=== PATIENT | male | born 1950 | race American Indian/Alaskan Native ===

== ENCOUNTER 2017-01-11 17:50 | Inpatient (IN) | payer MEDICARE ==
[2017-01-11 18:37] LABS: Hematocrit 29.4 % (35.5-45.6); Hemoglobin 9.6 gm/dl (11.8-15.2); Mean Corpuscular HGB Conc 33 % (32-34); Mean Corpuscular Hemoglobin 27 pg (28-32); Mean Corpuscular Volume 82 fl (84-94); Platelet Count 345 K/mm3 (140-440); White Blood Count 10.4 K/mm3 (4.5-11.0)
[2017-01-11 18:55] LABS: Calcium 7.9 mg/dL (8.4-10.2); Chloride 103.5 mmol/L (98-107); Potassium 3.7 mmol/L (3.6-5.0)
[2017-01-11 19:51] LABS: Basophils % (Manual) 0 % (0.0-1.8); Blastocytes % (Manual) 0 %
[2017-01-11 19:52] LABS: Poikilocytosis 3+
[2017-01-11 19:53] LABS: Ovalocytes 1+; Schistocytes 2+; Target Cells Few
[2017-01-11 19:59] LABS: Anisocytosis 1+; Hypochromasia 1+
[2017-01-11 20:00] LABS: Diff Status Complete; Large Platelets Few; Platelet Estimate Consistent w Auto
--- NOTE | 2017-01-11 20:03 | XRay Report ---
FINAL REPORT EXAM: XR CHEST ROUTINE 2V HISTORY: Shortness of breath TECHNIQUE: upright single view chest PRIORS: None. FINDINGS: There is focal atelectasis or infiltrate within the left lower lobe. There is mild pulmonary vascular prominence. Cardiac silhouette is prominent size. There is mild pulmonary vascular prominence IMPRESSION: Left lower lobe infiltrate/atelectasis Pulmonary vascular congestion likely reflecting mild CHF Mild cardiomegaly
[2017-01-11] MEDS ORDERED: LASIX IV ONE (21:19)
--- NOTE | 2017-01-11 21:23 | Emergency Department Report ---
ED Shortness of Breath HPI - General Chief Complaint: Dyspnea/Respdistress Stated Complaint: BILATERAL FOOT/LEG SWELLING Time Seen by Provider: 01/11/17 21:13 Source: patient Mode of arrival: Ambulatory Limitations: No Limitations - History of Present Illness Initial Comments: Patient is 66 years old male, history of congestive heart failure, diabetes and hypertension, presented today with increasing shortness of breath and generalized edema for the last few weeks just got worse in the last few days. Patient stated that he cannot walk even for short distances without getting shortness of breath. Patient denied chest pain, fever, nausea or vomiting. MD Complaint: shortness of breath -: Gradual - Related Data Allergies Allergy/AdvReac Type Severity Reaction Status Date / Time No Known Allergies Allergy Unverified 01/11/17 18:03 ED Review of Systems ROS: Stated complaint: BILATERAL FOOT/LEG SWELLING Other details as noted in HPI Comment: All other systems reviewed and negative Constitutional: denies: chills, fever Respiratory: cough, orthopnea, shortness of breath, SOB with exertion, SOB at rest. denies: wheezing Cardiovascular: dyspnea on exertion, orthopnea, edema, paroxysmal nocturnal dyspnea. denies: chest pain, palpitations Gastrointestinal: denies: abdominal pain, nausea, vomiting, diarrhea, constipation, hematemesis, melena, hematochezia Genitourinary: denies: urgency, dysuria, frequency Neurological: weakness (generalized). denies: headache, numbness, paresthesias , confusion, abnormal gait ED Past Medical Hx - Past Medical History Hx Hypertension: Yes Hx CVA: Yes Hx Congestive Heart Failure: Yes Hx Diabetes: Yes - Surgical History Past Surgical History?: No - Social History Smoking Status: Never Smoker Substance Use Type: Alcohol ED Physical Exam - General Limitations: No Limitations General appearance: alert, in distress (moderate respiratory distress) - Head Head exam: Present: atraumatic, normocephalic, normal inspection - Eye Eye exam: Present: normal appearance, PERRL - ENT ENT exam: Present: normal exam, normal orophraynx, mucous membranes moist - Neck Neck exam: Present: normal inspection, full ROM. Absent: tenderness, meningismus, lymphadenopathy, thyromegaly - Respiratory Respiratory exam: Present: respiratory distress, rales, decreased breath sounds. Absent: wheezes, rhonchi, stridor, chest wall tenderness, accessory muscle use, prolonged expiratory - Cardiovascular Cardiovascular Exam: Present: regular rate, normal rhythm, gallop - GI/Abdominal GI/Abdominal exam: Present: soft, normal bowel sounds. Absent: distended, tenderness, guarding, rebound, rigid, mass, bruit, pulsatile mass, hernia - Extremities Exam Extremities exam: Present: normal inspection, full ROM, normal capillary refill , pedal edema (4+). Absent: tenderness, calf tenderness - Back Exam Back exam: Present: normal inspection, full ROM. Absent: tenderness, CVA tenderness (R), CVA tenderness (L), muscle spasm, paraspinal tenderness, vertebral tenderness, rash noted - Neurological Exam Neurological exam: Present: alert, oriented X3, CN II-XII intact, normal gait - Skin Skin exam: Present: warm, intact, normal color ED Course Vital Signs 01/11/17 01/11/17 01/11/17 18:03 21:12 21:15 Temperature 98.4 F Pulse Rate 80 83 Respiratory 20 22 Rate Blood Pressure 142/84 O2 Sat by Pulse 96 89 91 Oximetry 01/11/17 21:31 Temperature Pulse Rate 82 Respiratory 25 H Rate Blood Pressure O2 Sat by Pulse 95 Oximetry ED Medical Decision Making - Lab Data Result diagrams: 01/11/17 18:25 01/11/17 18:25 - EKG Data -: EKG Interpreted by [facility] EKG shows normal: sinus rhythm Rate: normal - EKG Data Interpretation: no acute changes - Radiology Data Radiology results: report reviewed Chest x-ray showed pulmonary edema and possible right lower lobe atelectasis. - Medical Decision Making Discussed with Dr. Kierra Kessler, I presented the patient to her, she accepted to admit the patient to her service. Critical care attestation.: If time is entered above; I have spent that time in minutes in the direct care of this critically ill patient, excluding procedure time. ED Disposition Clinical Impression: Acute exacerbation of congestive heart failure, Volume overload, Shortness of breath Disposition: OP ADMIT IP TO THIS HOSP Is pt being admited?: Yes Condition: Stable Referrals: PRIMARY CARE, [Referring] - 3-5 Days
[2017-01-11] MEDS ORDERED: ZOFRAN IV PRN (22:58)
[2017-01-11] MEDS ORDERED: DULCOLAX PR PRN (22:58)
[2017-01-11] MEDS ORDERED: TYLENOL PO PRN (22:58)
[2017-01-11] MEDS ORDERED: MILK OF MAGNESIA PO PRN (22:58)
[2017-01-11] MEDS ORDERED: D50W (25GM) Vial IV PRN (22:58)
--- NOTE | 2017-01-11 22:58 | History and Physical Report ---
History of Present Illness Date of examination: 01/11/17 History of present illness: 47-year-old man withl history of CHF, diabetes, hypertension, comes emergency room complaining of shortness of breath, increasing lower extremity edema dyspnea on exertion, decreased exercise tolerance for 2 weeks, no PND or orthopnea. States he is compliant with medications and diet Review Of Systems: Constitutional: no weight loss Ears, eyes, nose, mouth and throat: no nasal congestion, no nasal discharge, no sinus pressure, blurry vision, diplopia Neck: No neck pain or rigidity. Cardiovascular: no chest pain, orthopnea, palpitations Respiratory: No cough Gastrointestinal: No abdominal pain, hematochezia Genitourinary : no dysuria, frequency , hematuria Musculoskeletal: no muscle ache Integumentary: no rash, no pruritis Neurological: no parathesias, focal weakness Endocrine: no cold or heat intolerance, no polyuria or polydipsia Hematologic/Lymphatic: no easy bruising, no easy bleeding, no gland swelling Allergic/Immunologic: no urticaria, no angioedema. PAST MEDICAL HISTORY: CHF, diabetes, hypertension, history of CVA PAST SURGICAL HISTORY:none SOCIAL HISTORY: No alcohol and tobacco, no drugs FAMILY HISTORY: Hypertension Medications and Allergies Allergies Allergy/AdvReac Type Severity Reaction Status Date / Time No Known Allergies Allergy Unverified 01/11/17 18:03 Exam - Physical Exam Narrative exam: Gen. appearance: Patient lying in bed, no apparent distress HEENT: Normocephalic, atraumatic, pupils equally round and reactive to light, extraocular movement intact, and no sclericterus,. No JVD or thyromegaly or nodule,neck supple, no carotid bruit ,mucous membranes moist, no exudate or erythema Heart: S1, S2, regular rate and rhythm Lungs: Crackles bilaterally, breathing comfortable Abdomen: Positive bowel sounds, nontender, nondistended, no organomegaly Extremity: + edema, no cyanosis, clubbing Skin: No rash, nodules, warm, dry Neuro: Oriented 3, cranial nerves II-12 intact, speech is fluent, motor and sensory intact - Constitutional Vitals: Temp Pulse Resp BP Pulse Ox 98.4 F 82 25 H 142/84 95 01/11/17 18:03 01/11/17 21:31 01/11/17 21:31 01/11/17 18:03 01/11/17 21:31 Results - Labs CBC & Chem 7: 01/11/17 18:25 01/11/17 18:25 Labs: Abnormal lab results 01/11/17 01/11/17 Range/Units 18:25 18:25 RBC 3.60 L (3.65-5.03) M/mm3 Hgb 9.6 L (11.8-15.2) gm/dl Hct 29.4 L (35.5-45.6) % MCV 82 L (84-94) fl MCH 27 L (28-32) pg RDW 18.0 H (13.2-15.2) % Seg Neuts % (Manual) 77.0 H (40.0-70.0) % Lymphocytes % (Manual) 12.0 L (13.4-35.0) % Monocytes % (Manual) 10.0 H (0.0-7.3) % Seg Neutrophils # Man 8.0 H (1.8-7.7) K/mm3 Monocytes # (Manual) 1.0 H (0.0-0.8) K/mm3 Creatinine 1.6 H (0.8-1.5) mg/dL Glucose 146 H (75-100) mg/dL Calcium 7.9 L (8.4-10.2) mg/dL NT-Pro-B Natriuret Pep 22086 H (0-900) pg/mL Assessment and Plan Assessment Acute onset CHF, probably systolic dysfunction Diabetes Hypertension History of PE, DVT, LV apical thrombus Plan Admit to medicine Diuresed with IV Lasix, Start Beta pradeep, AceI ,aspirin Check cardiac enzymes, consult cardiology Monitor I's and O's, daily weights Check fingersticks and start insulin sliding scale DVT prophylaxis
[2017-01-11 23:56] LABS: Creatine Kinase MB 1.2 ng/mL (0.0-4.0)
[2017-01-12] MEDS: LASIX IV SCH ×2 (06:24→17:04)
[2017-01-12 07:51] LABS: Hematocrit 26.7 % (35.5-45.6); Hemoglobin 9.1 gm/dl (11.8-15.2); Mean Corpuscular HGB Conc 34 % (32-34); Mean Corpuscular Hemoglobin 27 pg (28-32); Mean Corpuscular Volume 80 fl (84-94); Platelet Count 353 K/mm3 (140-440); Red Blood Count 3.32 M/mm3 (3.65-5.03); Red Cell Distribution Width 17.4 % (13.2-15.2); White Blood Count 10.2 K/mm3 (4.5-11.0)
[2017-01-12 07:53] LABS: Creatine Kinase MB 1.4 ng/mL (0.0-4.0)
[2017-01-12 07:54] LABS: Chloride 103.9 mmol/L (98-107); Potassium 3.3 mmol/L (3.6-5.0)
[2017-01-12] MEDS: NOVOLOG SUB-Q SCH ×4 (08:46→21:40)
[2017-01-12 09:46] LABS: Anisocytosis 1+; Basophils % (Manual) 0 % (0.0-1.8); Blastocytes % (Manual) 0 %; Eosinophils % (Manual) 0 % (0.0-4.3)
[2017-01-12 09:48] LABS: Hypochromasia 1+; Poikilocytosis 1+; Schistocytes Few; Target Cells Few
[2017-01-12 09:49] LABS: Diff Status Complete
[2017-01-12] MEDS: ZESTRIL PO SCH (11:02)
[2017-01-12] MEDS: LOPRESSOR PO SCH ×2 (11:02→21:49)
[2017-01-12] MEDS: LOVENOX SUB-Q SCH (11:03)
--- NOTE | 2017-01-12 11:22 | Progress Note ---
<VALDEMAR VIEIRA - Last Filed: 01/26/17 08:14> Assessment and Plan Assessment and plan: Patient is 66 years old male, history of congestive heart failure, diabetes and hypertension, presented today with increasing shortness of breath and generalized edema for the last few weeks just got worse in the last few days. Acute on chronic Congestive heart failure Echocardiogram ordered Continue on IV Diuresis and beta blockers Strict I&O's and daily weights Low-sodium/cardiac diet/fluid restriction Closely monitor electrolytes Cardiology evaluation Diabetes mellitus Accu-Chek before meals and at bedtime Sliding scale insulin/NovoLog ADA carbohydrate consistent diet Acute renal failure Nephrology consulted Repeat BMP Hypokalemia Replaced Closely monitor electrolytes Hypertensive urgency Continue home antihypertensive medications Closely monitor blood pressure Chronic anemia H&H stable for patient at this point; no blood transfusions needed Closely monitor H&H DVT prophylaxis Heparin History Interval history: Patient denies shortness of breath or chest pain. Labs and nursing notes are reviewed. Hospitalist Physical - Constitutional Vitals: Temp Pulse Resp BP Pulse Ox 98.9 F 81 20 146/84 97 01/12/17 10:54 01/12/17 11:02 01/12/17 10:54 01/12/17 11:02 01/12/17 10:54 General appearance: Present: no acute distress - EENT Eyes: Present: PERRL ENT: hearing intact - Respiratory Respiratory effort: normal Respiratory: negative: other (Crackles ) - Cardiovascular Heart rate: 81 Rhythm: regular Heart Sounds: Present: S1 & S2 - Extremities Extremity abnormal: edema, other (bilateral lower extremity) - Abdominal General gastrointestinal: soft, non-tender - Integumentary Integumentary: Present: clear, warm, dry - Psychiatric Psychiatric: appropriate mood/affect - Neurologic Neurologic: moves all extremities - Allied Health Allied health notes reviewed: nursing Results - Labs CBC & Chem 7: 01/12/17 07:11 01/14/17 06:54 Labs: Laboratory Last Values WBC 10.2 K/mm3 (4.5-11.0) 01/12/17 07:11 RBC 3.32 M/mm3 (3.65-5.03) L 01/12/17 07:11 Hgb 9.1 gm/dl (11.8-15.2) L 01/12/17 07:11 Hct 26.7 % (35.5-45.6) L 01/12/17 07:11 MCV 80 fl (84-94) L 01/12/17 07:11 MCH 27 pg (28-32) L 01/12/17 07:11 MCHC 34 % (32-34) 01/12/17 07:11 RDW 17.4 % (13.2-15.2) H 01/12/17 07:11 Plt Count 353 K/mm3 (140-440) 01/12/17 07:11 Add Manual Diff Complete 01/12/17 07:11 Total Counted 100 01/12/17 07:11 Seg Neuts % (Manual) 81.0 % (40.0-70.0) H 01/12/17 07:11 Band Neutrophils % 0 % 01/12/17 07:11 Lymphocytes % (Manual) 14.0 % (13.4-35.0) 01/12/17 07:11 Reactive Lymphs % (Man) 0 % 01/12/17 07:11 Monocytes % (Manual) 5.0 % (0.0-7.3) 01/12/17 07:11 Eosinophils % (Manual) 0 % (0.0-4.3) 01/12/17 07:11 Basophils % (Manual) 0 % (0.0-1.8) 01/12/17 07:11 Metamyelocytes % 0 % 01/12/17 07:11 Myelocytes % 0 % 01/12/17 07:11 Promyelocytes % 0 % 01/12/17 07:11 Blast Cells % 0 % 01/12/17 07:11 Nucleated RBC % Not Reportable 01/12/17 07:11 Seg Neutrophils # Man 8.3 K/mm3 (1.8-7.7) H 01/12/17 07:11 Band Neutrophils # 0.0 K/mm3 01/12/17 07:11 Lymphocytes # (Manual) 1.4 K/mm3 (1.2-5.4) 01/12/17 07:11 Abs React Lymphs (Man) 0.0 K/mm3 01/12/17 07:11 Monocytes # (Manual) 0.5 K/mm3 (0.0-0.8) 01/12/17 07:11 Eosinophils # (Manual) 0.0 K/mm3 (0.0-0.4) 01/12/17 07:11 Basophils # (Manual) 0.0 K/mm3 (0.0-0.1) 01/12/17 07:11 Metamyelocytes # 0.0 K/mm3 01/12/17 07:11 Myelocytes # 0.0 K/mm3 01/12/17 07:11 Promyelocytes # 0.0 K/mm3 01/12/17 07:11 Blast Cells # 0.0 K/mm3 01/12/17 07:11 WBC Morphology Not Reportable 01/12/17 07:11 Hypersegmented Neuts Not Reportable 01/12/17 07:11 Hyposegmented Neuts Not Reportable 01/12/17 07:11 Hypogranular Neuts Not Reportable 01/12/17 07:11 Smudge Cells Not Reportable 01/12/17 07:11 Toxic Granulation Not Reportable 01/12/17 07:11 Toxic Vacuolation Not Reportable 01/12/17 07:11 Dohle Bodies Not Reportable 01/12/17 07:11 Pelger-Huet Anomaly Not Reportable 01/12/17 07:11 Ragini Rods Not Reportable 01/12/17 07:11 Platelet Estimate Not Reportable 01/12/17 07:11 Clumped Platelets Not Reportable 01/12/17 07:11 Plt Clumps, EDTA Not Reportable 01/12/17 07:11 Large Platelets Not Reportable 01/12/17 07:11 Giant Platelets Not Reportable 01/12/17 07:11 Platelet Satelliting Not Reportable 01/12/17 07:11 Plt Morphology Comment Not Reportable 01/12/17 07:11 RBC Morphology Not Reportable 01/12/17 07:11 Dimorphic RBCs Not Reportable 01/12/17 07:11 Polychromasia Not Reportable 01/12/17 07:11 Hypochromasia 1+ 01/12/17 07:11 Poikilocytosis 1+ 01/12/17 07:11 Anisocytosis 1+ 01/12/17 07:11 Microcytosis Not Reportable 01/12/17 07:11 Macrocytosis Not Reportable 01/12/17 07:11 Spherocytes Not Reportable 01/12/17 07:11 Pappenheimer Bodies Not Reportable 01/12/17 07:11 Sickle Cells Not Reportable 01/12/17 07:11 Target Cells Few 01/12/17 07:11 Tear Drop Cells Not Reportable 01/12/17 07:11 Ovalocytes Not Reportable 01/12/17 07:11 Helmet Cells Not Reportable 01/12/17 07:11 [place] Bodies Not Reportable 01/12/17 07:11 [place] Rings Not Reportable 01/12/17 07:11 [place] Cells Not Reportable 01/12/17 07:11 Bite Cells Not Reportable 01/12/17 07:11 Crenated Cell Not Reportable 01/12/17 07:11 Elliptocytes Not Reportable 01/12/17 07:11 Acanthocytes (Spur) Not Reportable 01/12/17 07:11 Rouleaux Not Reportable 01/12/17 07:11 Hemoglobin C Crystals Not Reportable 01/12/17 07:11 Schistocytes Few 01/12/17 07:11 Malaria parasites Not Reportable 01/12/17 07:11 Scott Bodies Not Reportable 01/12/17 07:11 Hem Pathologist Commnt No 01/12/17 07:11 Sodium 140 mmol/L (137-145) 01/12/17 07:10 Potassium 3.3 mmol/L (3.6-5.0) L 01/12/17 07:10 Chloride 103.9 mmol/L (98-107) 01/12/17 07:10 Carbon Dioxide 23 mmol/L (22-30) 01/12/17 07:10 Anion Gap 16 mmol/L 01/12/17 07:10 BUN 15 mg/dL (9-20) 01/12/17 07:10 Creatinine 1.6 mg/dL (0.8-1.5) H 01/12/17 07:10 Estimated GFR 52 ml/min 01/12/17 07:10 BUN/Creatinine Ratio 9 % 01/12/17 07:10 Glucose 153 mg/dL (75-100) H 01/12/17 07:10 POC Glucose 169 (70-105) H 01/12/17 08:30 Calcium 8.0 mg/dL (8.4-10.2) L 01/12/17 07:10 Total Creatine Kinase 138 units/L (55-170) 01/12/17 07:11 CK-MB (CK-2) 1.4 ng/mL (0.0-4.0) 01/12/17 07:11 CK-MB (CK-2) Rel Index 1.0 (0-4) 01/12/17 07:11 Troponin T 0.022 ng/mL (0.00-0.029) 01/12/17 07:11 NT-Pro-B Natriuret Pep 83995 pg/mL (0-900) H 01/11/17 18:25 <RAJWINDER MARTINEZ M - Last Filed: 02/11/17 19:59> Hospitalist Physical - Constitutional Vitals: Temp Pulse Resp BP Pulse Ox 98.9 F 68 18 143/76 94 01/16/17 00:30 01/16/17 09:30 01/16/17 00:30 01/16/17 09:30 01/16/17 08:10 Results - Labs CBC & Chem 7: 01/12/17 07:11 01/14/17 06:54 Labs: Laboratory Last Values WBC 10.2 K/mm3 (4.5-11.0) 01/12/17 07:11 RBC 3.32 M/mm3 (3.65-5.03) L 01/12/17 07:11 Hgb 9.1 gm/dl (11.8-15.2) L 01/12/17 07:11 Hct 26.7 % (35.5-45.6) L 01/12/17 07:11 MCV 80 fl (84-94) L 01/12/17 07:11 MCH 27 pg (28-32) L 01/12/17 07:11 MCHC 34 % (32-34) 01/12/17 07:11 RDW 17.4 % (13.2-15.2) H 01/12/17 07:11 Plt Count 353 K/mm3 (140-440) 01/12/17 07:11 Add Manual Diff Complete 01/12/17 07:11 Total Counted 100 01/12/17 07:11 Seg Neuts % (Manual) 81.0 % (40.0-70.0) H 01/12/17 07:11 Band Neutrophils % 0 % 01/12/17 07:11 Lymphocytes % (Manual) 14.0 % (13.4-35.0) 01/12/17 07:11 Reactive Lymphs % (Man) 0 % 01/12/17 07:11 Monocytes % (Manual) 5.0 % (0.0-7.3) 01/12/17 07:11 Eosinophils % (Manual) 0 % (0.0-4.3) 01/12/17 07:11 Basophils % (Manual) 0 % (0.0-1.8) 01/12/17 07:11 Metamyelocytes % 0 % 01/12/17 07:11 Myelocytes % 0 % 01/12/17 07:11 Promyelocytes % 0 % 01/12/17 07:11 Blast Cells % 0 % 01/12/17 07:11 Nucleated RBC % Not Reportable 01/12/17 07:11 Seg Neutrophils # Man 8.3 K/mm3 (1.8-7.7) H 01/12/17 07:11 Band Neutrophils # 0.0 K/mm3 01/12/17 07:11 Lymphocytes # (Manual) 1.4 K/mm3 (1.2-5.4) 01/12/17 07:11 Abs React Lymphs (Man) 0.0 K/mm3 01/12/17 07:11 Monocytes # (Manual) 0.5 K/mm3 (0.0-0.8) 01/12/17 07:11 Eosinophils # (Manual) 0.0 K/mm3 (0.0-0.4) 01/12/17 07:11 Basophils # (Manual) 0.0 K/mm3 (0.0-0.1) 01/12/17 07:11 Metamyelocytes # 0.0 K/mm3 01/12/17 07:11 Myelocytes # 0.0 K/mm3 01/12/17 07:11 Promyelocytes # 0.0 K/mm3 01/12/17 07:11 Blast Cells # 0.0 K/mm3 01/12/17 07:11 WBC Morphology Not Reportable 01/12/17 07:11 Hypersegmented Neuts Not Reportable 01/12/17 07:11 Hyposegmented Neuts Not Reportable 01/12/17 07:11 Hypogranular Neuts Not Reportable 01/12/17 07:11 Smudge Cells Not Reportable 01/12/17 07:11 Toxic Granulation Not Reportable 01/12/17 07:11 Toxic Vacuolation Not Reportable 01/12/17 07:11 Dohle Bodies Not Reportable 01/12/17 07:11 Pelger-Huet Anomaly Not Reportable 01/12/17 07:11 Ragini Rods Not Reportable 01/12/17 07:11 Platelet Estimate Not Reportable 01/12/17 07:11 Clumped Platelets Not Reportable 01/12/17 07:11 Plt Clumps, EDTA Not Reportable 01/12/17 07:11 Large Platelets Not Reportable 01/12/17 07:11 Giant Platelets Not Reportable 01/12/17 07:11 Platelet Satelliting Not Reportable 01/12/17 07:11 Plt Morphology Comment Not Reportable 01/12/17 07:11 RBC Morphology Not Reportable 01/12/17 07:11 Dimorphic RBCs Not Reportable 01/12/17 07:11 Polychromasia Not Reportable 01/12/17 07:11 Hypochromasia 1+ 01/12/17 07:11 Poikilocytosis 1+ 01/12/17 07:11 Anisocytosis 1+ 01/12/17 07:11 Microcytosis Not Reportable 01/12/17 07:11 Macrocytosis Not Reportable 01/12/17 07:11 Spherocytes Not Reportable 01/12/17 07:11 Pappenheimer Bodies Not Reportable 01/12/17 07:11 Sickle Cells Not Reportable 01/12/17 07:11 Target Cells Few 01/12/17 07:11 Tear Drop Cells Not Reportable 01/12/17 07:11 Ovalocytes Not Reportable 01/12/17 07:11 Helmet Cells Not Reportable 01/12/17 07:11 [place] Bodies Not Reportable 01/12/17 07:11 [place] Rings Not Reportable 01/12/17 07:11 [place] Cells Not Reportable 01/12/17 07:11 Bite Cells Not Reportable 01/12/17 07:11 Crenated Cell Not Reportable 01/12/17 07:11 Elliptocytes Not Reportable 01/12/17 07:11 Acanthocytes (Spur) Not Reportable 01/12/17 07:11 Rouleaux Not Reportable 01/12/17 07:11 Hemoglobin C Crystals Not Reportable 01/12/17 07:11 Schistocytes Few 01/12/17 07:11 Malaria parasites Not Reportable 01/12/17 07:11 Scott Bodies Not Reportable 01/12/17 07:11 Hem Pathologist Commnt No 01/12/17 07:11 Sodium 136 mmol/L (137-145) L 01/14/17 06:54 Potassium 4.1 mmol/L (3.6-5.0) D 01/14/17 06:54 Chloride 101.3 mmol/L (98-107) 01/14/17 06:54 Carbon Dioxide 19 mmol/L (22-30) L 01/14/17 06:54 Anion Gap 20 mmol/L 01/14/17 06:54 BUN 14 mg/dL (9-20) 01/14/17 06:54 Creatinine 1.5 mg/dL (0.8-1.5) 01/14/17 06:54 Estimated GFR 56 ml/min 01/14/17 06:54 BUN/Creatinine Ratio 9 % 01/14/17 06:54 Glucose 100 mg/dL (75-100) 01/14/17 06:54 POC Glucose 190 (70-105) H 01/16/17 17:01 Calcium 8.3 mg/dL (8.4-10.2) L 01/14/17 06:54 Total Creatine Kinase 138 units/L (55-170) 01/12/17 07:11 CK-MB (CK-2) 1.4 ng/mL (0.0-4.0) 01/12/17 07:11 CK-MB (CK-2) Rel Index 1.0 (0-4) 01/12/17 07:11 Troponin T 0.022 ng/mL (0.00-0.029) 01/12/17 07:11 NT-Pro-B Natriuret Pep 16809 pg/mL (0-900) H 01/11/17 18:25 Urine Color Yellow (Yellow) 01/13/17 06:40 Urine Turbidity Clear (Clear) 01/13/17 06:40 Urine pH 6.0 (5.0-7.0) 01/13/17 06:40 Ur Specific Strang 1.009 (1.003-1.030) 01/13/17 06:40 Urine Protein 30 mg/dl mg/dL (Negative) 01/13/17 06:40 Urine Glucose (UA) Neg mg/dL (Negative) 01/13/17 06:40 Urine Ketones Neg mg/dL (Negative) 01/13/17 06:40 Urine Blood Neg (Negative) 01/13/17 06:40 Urine Nitrite Neg (Negative) 01/13/17 06:40 Urine Bilirubin Neg (Negative) 01/13/17 06:40 Urine Urobilinogen < 2.0 mg/dL (<2.0) 01/13/17 06:40 Ur Leukocyte Esterase Neg (Negative) 01/13/17 06:40 Urine WBC (Auto) < 1.0 /HPF (0.0-6.0) 01/13/17 06:40 Urine RBC (Auto) 1.0 /HPF (0.0-6.0) 01/13/17 06:40 U Epithel Cells (Auto) < 1.0 /HPF (0-13.0) 01/13/17 06:40 Urine Creatinine 54.3 mg/dL (0.1-20.0) H 01/13/17 06:40 Protein/Creatinin Ratio 1.25 01/13/17 06:40 Urine Total Protein 68 mg/dL (5-11.8) H 01/13/17 06:40
[2017-01-12] MEDS ORDERED: Fluarix Quad 2017-2018(36 MOS+ IM ONE (12:00)
[2017-01-12] MEDS ORDERED: K-DUR PO ONE (12:27)
--- NOTE | 2017-01-12 14:30 | Consultation ---
History of Present Illness Consult date: 01/12/17 Consult reason: congestive heart failure History of present illness: This is a 66yr old male who is admitted with congestive heart failure. Patient reports worsening shortness of breath and bilateral lower extremity edema over the last few days. He denies chest pain. There was no syncope. An echocardiogram done this admission reports a mildly decreased systolic function , ejection fraction 45%. Medications and Allergies Allergies Allergy/AdvReac Type Severity Reaction Status Date / Time No Known Allergies Allergy Unverified 01/11/17 18:03 Active Meds: Active Medications Acetaminophen (Tylenol) 650 mg PO Q4H PRN PRN Reason: Pain MILD(1-3)/Fever >100.5/LIND Bisacodyl (Dulcolax) 10 mg NE QDAY PRN PRN Reason: Constipation unrelieved by MOM Dextrose (D50w (25gm) Vial) 25 gm IV PRN PRN PRN Reason: Hypoglycemia Enoxaparin Sodium (Lovenox) 40 mg SUB-Q QDAY [facility] Last Admin: 01/12/17 11:03 Dose: 40 mg Furosemide (Lasix) 40 mg IV BID@0600,1800 [facility] Last Admin: 01/12/17 06:24 Dose: 40 mg Insulin Aspart (Novolog) 0 units SUB-Q ACHS [facility] PRN Reason: Protocol Last Admin: 01/12/17 08:46 Dose: 3 units Lisinopril (Zestril) 2.5 mg PO QDAY [facility] Last Admin: 01/12/17 11:02 Dose: 2.5 mg Magnesium Hydroxide (Milk Of Magnesia) 30 ml PO Q4H PRN PRN Reason: Constipation Metoprolol Tartrate (Lopressor) 25 mg PO BID [facility] Last Admin: 01/12/17 11:02 Dose: 25 mg Ondansetron HCl (Zofran) 4 mg IV Q8H PRN PRN Reason: N/V unrelieved by Reglan Physical Examination Vital Signs Temp Pulse Resp BP Pulse Ox 98.4 F 80 20 142/84 96 01/11/17 18:03 01/11/17 18:03 01/11/17 18:03 01/11/17 18:03 01/11/17 18:03 General appearance: no acute distress HEENT: Positive: PERRL Cardiac: Positive: Reg Rate and Rhythm Extremities: Present: edema Results 01/12/17 07:11 01/12/17 07:10 Cardiac Enzymes 01/11/17 01/12/17 Range/Units 23:14 07:11 CK-MB (CK-2) 1.2 1.4 (0.0-4.0) ng/mL CBC 01/11/17 01/12/17 Range/Units 18:25 07:11 WBC 10.4 10.2 (4.5-11.0) K/mm3 RBC 3.60 L 3.32 L (3.65-5.03) M/mm3 Hgb 9.6 L 9.1 L (11.8-15.2) gm/dl Hct 29.4 L 26.7 L (35.5-45.6) % Plt Count 345 353 (140-440) K/mm3 Comprehensive Metabolic Panel 01/11/17 01/12/17 Range/Units 18:25 07:10 Sodium 139 140 (137-145) mmol/L Potassium 3.7 3.3 L (3.6-5.0) mmol/L Chloride 103.5 103.9 (98-107) mmol/L Carbon Dioxide 22 23 (22-30) mmol/L BUN 13 15 (9-20) mg/dL Creatinine 1.6 H 1.6 H (0.8-1.5) mg/dL Glucose 146 H 153 H (75-100) mg/dL Calcium 7.9 L 8.0 L (8.4-10.2) mg/dL Assessment and Plan - Patient Problems (1) Acute exacerbation of congestive heart failure Current Visit: Yes Status: Acute Plan to address problem: with preserved ejection fraction 45-50% on echocardiogram. Continue medical therapy for heart failure. We will get a presantine thallium stress test once heart failure is resolved.
[2017-01-13] MEDS: LASIX IV SCH ×2 (05:49→18:18)
[2017-01-13 07:09] LABS: Bilirubin,Urine NEG (Negative); Blood,Urine NEG (Negative); Ketones,Urine NEG (Negative); Leukocyte Esterase,Urine NEG (Negative); Nitrite,Urine NEG (Negative); Urobilinogen,Urine < 2.0 mg/dL (<2.0); WBC,Urine < 1.0 /HPF (0.0-6.0)
[2017-01-13] MEDS: NOVOLOG SUB-Q SCH ×4 (08:31→22:38)
[2017-01-13 09:02] LABS: Calcium 7.9 mg/dL (8.4-10.2); Chloride 103.2 mmol/L (98-107); Potassium 3.4 mmol/L (3.6-5.0)
[2017-01-13] MEDS: ZESTRIL PO SCH (10:42)
[2017-01-13] MEDS: LOVENOX SUB-Q SCH (10:42)
[2017-01-13] MEDS: LOPRESSOR PO SCH ×2 (10:43→21:35)
--- NOTE | 2017-01-13 14:45 | Progress Note ---
Assessment and Plan - Patient Problems (1) Acute exacerbation of congestive heart failure Current Visit: Yes Status: Acute Plan to address problem: ejection fraction 45-50% on echocardiogram. Continue medical therapy for heart failure with preserved ejection fraction. We will get a presantine thallium stress test once heart failure is resolved. Subjective Date of service: 01/13/17 Interval history: Patient reports he is feeling somewhat better. No cardiac events reported. Objective Vital Signs Temp Pulse Resp BP BP Pulse Ox 01/13/17 11:59 98.3 F 69 18 129/73 92 01/13/17 10:43 71 136/77 01/13/17 10:42 71 136/77 01/13/17 08:23 98.9 F 71 18 136/77 96 01/13/17 04:06 99.2 F 68 18 140/75 96 01/13/17 04:02 69 96 01/13/17 00:08 99.9 F H 77 20 133/79 98 01/12/17 21:24 94 01/12/17 20:27 100.7 F H 79 20 128/73 96 01/12/17 19:45 79 01/12/17 16:00 78 01/12/17 15:43 98.3 F 82 18 143/77 95 01/12/17 15:38 94 - Physical Examination General: No Apparent Distress HEENT: Positive: PERRL Cardiac: Positive: Reg Rate and Rhythm Extremities: Present: edema - Labs and Meds Comprehensive Metabolic Panel 01/13/17 Range/Units 08:30 Sodium 140 (137-145) mmol/L Potassium 3.4 L (3.6-5.0) mmol/L Chloride 103.2 (98-107) mmol/L Carbon Dioxide 23 (22-30) mmol/L BUN 15 (9-20) mg/dL Creatinine 1.6 H (0.8-1.5) mg/dL Glucose 85 (75-100) mg/dL Calcium 7.9 L (8.4-10.2) mg/dL
--- NOTE | 2017-01-13 15:53 | Consultation ---
History of Present Illness - Reason for Consult Consult date: 01/13/17 acute renal failure Requesting physician: VALDEMAR VIEIRA - History of Present Illness 66 years old male with history of diabetes and hypertension, presented today with increasing shortness of breath in association with B/L LE edema x 2 weeks. Patient stated that he cannot walk even for short distances without getting shortness of breath. Patient denied chest pain, fever, nausea or vomiting. No aggravating or relieving factors. Renal consult is obtained after he was noted to have elevated CR of 1.6. Pateint states that he has been following up with a sales operations coordinator before but could not recall his baseline function or contact for his sales operations coordinator. Denies any urinary symptoms. No NSAIDs , Contrast. PAST MEDICAL HISTORY: CHF, diabetes, hypertension, history of CVA PAST SURGICAL HISTORY:none SOCIAL HISTORY: No alcohol and tobacco, no drugs FAMILY HISTORY: Hypertension Medications and Allergies Allergies Allergy/AdvReac Type Severity Reaction Status Date / Time No Known Allergies Allergy Unverified 01/11/17 18:03 Home Medications Medication Instructions Recorded Confirmed Last Taken Type Atorvastatin Calcium [Lipitor] 10 mg PO DAILY 01/13/17 01/13/17 Unknown History Active Meds: Active Medications Acetaminophen (Tylenol) 650 mg PO Q4H PRN PRN Reason: Pain MILD(1-3)/Fever >100.5/LIND Aspirin (Halfprin Ec) 81 mg PO QDAY [facility] Bisacodyl (Dulcolax) 10 mg [place] QDAY PRN PRN Reason: Constipation unrelieved by MOM Dextrose (D50w (25gm) Vial) 25 gm IV PRN PRN PRN Reason: Hypoglycemia Enoxaparin Sodium (Lovenox) 40 mg SUB-Q QDAY [facility] Last Admin: 01/13/17 10:42 Dose: 40 mg Furosemide (Lasix) 40 mg IV BID@0600,1800 [facility] Last Admin: 01/13/17 05:49 Dose: 40 mg Insulin Aspart (Novolog) 0 units SUB-Q ACHS [facility] PRN Reason: Protocol Last Admin: 01/13/17 11:45 Dose: Not Given Lisinopril (Zestril) 2.5 mg PO QDAY [facility] Last Admin: 01/13/17 10:42 Dose: 2.5 mg Magnesium Hydroxide (Milk Of Magnesia) 30 ml PO Q4H PRN PRN Reason: Constipation Metoprolol Tartrate (Lopressor) 25 mg PO BID [facility] Last Admin: 01/13/17 10:43 Dose: 25 mg Ondansetron HCl (Zofran) 4 mg IV Q8H PRN PRN Reason: N/V unrelieved by Reglan Review of Systems Constitutional: weight gain, no weight loss Ears, nose, mouth and throat: no nose pain, no nasal congestion, no nasal discharge Cardiovascular: orthopnea, edema, shortness of breath, no chest pain Respiratory: cough, no excessive sputum, no hemoptysis, no congestion, no wheezing Gastrointestinal: no abdominal pain, no nausea, no vomiting, no diarrhea Genitourinary Male: no dysuria, no hematuria, no flank pain Rectal: no pain, no incontinence, no bleeding Musculoskeletal: no neck stiffness, no neck pain, no shooting arm pain Integumentary: no rash, no pruritis, no redness Neurological: no paralysis, no weakness, no parathesias Psychiatric: no anxiety, no memory loss Endocrine: no cold intolerance, no heat intolerance Hematologic/Lymphatic: no easy bruising, no easy bleeding Exam - Vital Signs Vital signs: Vital Signs Temp Pulse Resp BP Pulse Ox 98.4 F 80 20 142/84 96 01/11/17 18:03 01/11/17 18:03 01/11/17 18:03 01/11/17 18:03 01/11/17 18:03 - General Appearance General appearance: well-developed, well-nourished, appears stated age EENT: PERRL, mucous membranes moist Neck: Present: neck supple, trachea midline. Absent: JVD/HJR, Masses Respiratory: Rales, Decreased Breath Sounds Heart: regular, normal heart rate, S1S2, no murmurs Gastrointestinal: Present: normoactive bowel sounds. Absent: tenderness Integumentary: no rash, warm and dry Neurologic: no focal deficit, alert and oriented x3, gait normal, strength 5/5 Musculoskeletal: Absent: deformities, joint swelling Psychiatric: mood/affect appropriate, cooperative Results - Lab Results 01/12/17 07:11 01/13/17 08:30 Most recent lab results Calcium 7.9 mg/dL (8.4-10.2) L 01/13/17 08:30 Urine Creatinine 54.3 mg/dL (0.1-20.0) H 01/13/17 06:40 Urine Total Protein 68 mg/dL (5-11.8) H 01/13/17 06:40 Assessment and Plan 1. FLACO on CKD vs CKD, baseline CR unavailable. 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 CR has been stable at 1.6 for the last 3 days ? baseline 2. Acute on chronic systolic Congestive heart failure 3. Diabetes mellitus II with diabetic nephropathy 4. Hypokalemia 5. Essential Hyperten 6. Anemia likely of CKD Plan: Obtain urine studies Renal Ultrasound Continue IV diuretics Continue ACEI for now. Will try to obtain records from his sales operations coordinator ? baseline CR/previous work ups Avoid nephrotoxines Thank you for the consult
--- NOTE | 2017-01-13 19:11 | Progress Note ---
<VALDEMAR VIEIRA - Last Filed: 01/26/17 08:12> Assessment and Plan Assessment and plan: Patient is 66 years old male, history of congestive heart failure, diabetes and hypertension, presented today with increasing shortness of breath and generalized edema for the last few weeks just got worse in the last few days. Acute on chronic Congestive heart failure Echocardiogram on 01/12/17 with ejection fraction 45-50% presantine thallium stress test once heart failure is resolved. Continue on IV Diuresis and beta blockers Strict I&O's and daily weights Low-sodium/cardiac diet/fluid restriction Closely monitor electrolytes Cardiology evaluation Diabetes mellitus Accu-Chek before meals and at bedtime Sliding scale insulin/NovoLog ADA carbohydrate consistent diet Acute renal failure Nephrology consulted Repeat BMP Hypokalemia Replaced Closely monitor electrolytes Hypertensive urgency Continue home antihypertensive medications Closely monitor blood pressure Chronic anemia H&H stable for patient at this point; no blood transfusions needed Closely monitor H&H History Interval history: Patient denies chest pain, or shortness of breath. Labs and nursing notes reviewed. Hospitalist Physical - Constitutional Vitals: Temp Pulse Resp BP Pulse Ox 98.0 F 76 18 143/71 100 01/13/17 16:52 01/13/17 16:52 01/13/17 16:52 01/13/17 16:52 01/13/17 16:52 General appearance: Present: no acute distress - EENT Eyes: Present: PERRL ENT: hearing intact - Respiratory Respiratory: bilateral: rales (Crackles ) - Cardiovascular Rhythm: regular Heart Sounds: Present: S1 & S2 - Extremities Extremity abnormal: edema, other (bilateral lower extremities) - Abdominal General gastrointestinal: soft, non-tender - Integumentary Integumentary: Present: clear, warm, dry - Psychiatric Psychiatric: appropriate mood/affect - Neurologic Neurologic: moves all extremities - Allied Health Allied health notes reviewed: nursing Results - Labs CBC & Chem 7: 01/12/17 07:11 01/14/17 06:54 Labs: Laboratory Last Values WBC 10.2 K/mm3 (4.5-11.0) 01/12/17 07:11 RBC 3.32 M/mm3 (3.65-5.03) L 01/12/17 07:11 Hgb 9.1 gm/dl (11.8-15.2) L 01/12/17 07:11 Hct 26.7 % (35.5-45.6) L 01/12/17 07:11 MCV 80 fl (84-94) L 01/12/17 07:11 MCH 27 pg (28-32) L 01/12/17 07:11 MCHC 34 % (32-34) 01/12/17 07:11 RDW 17.4 % (13.2-15.2) H 01/12/17 07:11 Plt Count 353 K/mm3 (140-440) 01/12/17 07:11 Add Manual Diff Complete 01/12/17 07:11 Total Counted 100 01/12/17 07:11 Seg Neuts % (Manual) 81.0 % (40.0-70.0) H 01/12/17 07:11 Band Neutrophils % 0 % 01/12/17 07:11 Lymphocytes % (Manual) 14.0 % (13.4-35.0) 01/12/17 07:11 Reactive Lymphs % (Man) 0 % 01/12/17 07:11 Monocytes % (Manual) 5.0 % (0.0-7.3) 01/12/17 07:11 Eosinophils % (Manual) 0 % (0.0-4.3) 01/12/17 07:11 Basophils % (Manual) 0 % (0.0-1.8) 01/12/17 07:11 Metamyelocytes % 0 % 01/12/17 07:11 Myelocytes % 0 % 01/12/17 07:11 Promyelocytes % 0 % 01/12/17 07:11 Blast Cells % 0 % 01/12/17 07:11 Nucleated RBC % Not Reportable 01/12/17 07:11 Seg Neutrophils # Man 8.3 K/mm3 (1.8-7.7) H 01/12/17 07:11 Band Neutrophils # 0.0 K/mm3 01/12/17 07:11 Lymphocytes # (Manual) 1.4 K/mm3 (1.2-5.4) 01/12/17 07:11 Abs React Lymphs (Man) 0.0 K/mm3 01/12/17 07:11 Monocytes # (Manual) 0.5 K/mm3 (0.0-0.8) 01/12/17 07:11 Eosinophils # (Manual) 0.0 K/mm3 (0.0-0.4) 01/12/17 07:11 Basophils # (Manual) 0.0 K/mm3 (0.0-0.1) 01/12/17 07:11 Metamyelocytes # 0.0 K/mm3 01/12/17 07:11 Myelocytes # 0.0 K/mm3 01/12/17 07:11 Promyelocytes # 0.0 K/mm3 01/12/17 07:11 Blast Cells # 0.0 K/mm3 01/12/17 07:11 WBC Morphology Not Reportable 01/12/17 07:11 Hypersegmented Neuts Not Reportable 01/12/17 07:11 Hyposegmented Neuts Not Reportable 01/12/17 07:11 Hypogranular Neuts Not Reportable 01/12/17 07:11 Smudge Cells Not Reportable 01/12/17 07:11 Toxic Granulation Not Reportable 01/12/17 07:11 Toxic Vacuolation Not Reportable 01/12/17 07:11 Dohle Bodies Not Reportable 01/12/17 07:11 Pelger-Huet Anomaly Not Reportable 01/12/17 07:11 Ragini Rods Not Reportable 01/12/17 07:11 Platelet Estimate Not Reportable 01/12/17 07:11 Clumped Platelets Not Reportable 01/12/17 07:11 Plt Clumps, EDTA Not Reportable 01/12/17 07:11 Large Platelets Not Reportable 01/12/17 07:11 Giant Platelets Not Reportable 01/12/17 07:11 Platelet Satelliting Not Reportable 01/12/17 07:11 Plt Morphology Comment Not Reportable 01/12/17 07:11 RBC Morphology Not Reportable 01/12/17 07:11 Dimorphic RBCs Not Reportable 01/12/17 07:11 Polychromasia Not Reportable 01/12/17 07:11 Hypochromasia 1+ 01/12/17 07:11 Poikilocytosis 1+ 01/12/17 07:11 Anisocytosis 1+ 01/12/17 07:11 Microcytosis Not Reportable 01/12/17 07:11 Macrocytosis Not Reportable 01/12/17 07:11 Spherocytes Not Reportable 01/12/17 07:11 Pappenheimer Bodies Not Reportable 01/12/17 07:11 Sickle Cells Not Reportable 01/12/17 07:11 Target Cells Few 01/12/17 07:11 Tear Drop Cells Not Reportable 01/12/17 07:11 Ovalocytes Not Reportable 01/12/17 07:11 Helmet Cells Not Reportable 01/12/17 07:11 [place] Bodies Not Reportable 01/12/17 07:11 [place] Rings Not Reportable 01/12/17 07:11 Elena Cells Not Reportable 01/12/17 07:11 Bite Cells Not Reportable 01/12/17 07:11 Crenated Cell Not Reportable 01/12/17 07:11 Elliptocytes Not Reportable 01/12/17 07:11 Acanthocytes (Spur) Not Reportable 01/12/17 07:11 Rouleaux Not Reportable 01/12/17 07:11 Hemoglobin C Crystals Not Reportable 01/12/17 07:11 Schistocytes Few 01/12/17 07:11 Malaria parasites Not Reportable 01/12/17 07:11 Scott Bodies Not Reportable 01/12/17 07:11 Hem Pathologist Commnt No 01/12/17 07:11 Sodium 140 mmol/L (137-145) 01/13/17 08:30 Potassium 3.4 mmol/L (3.6-5.0) L 01/13/17 08:30 Chloride 103.2 mmol/L (98-107) 01/13/17 08:30 Carbon Dioxide 23 mmol/L (22-30) 01/13/17 08:30 Anion Gap 17 mmol/L 01/13/17 08:30 BUN 15 mg/dL (9-20) 01/13/17 08:30 Creatinine 1.6 mg/dL (0.8-1.5) H 01/13/17 08:30 Estimated GFR 52 ml/min 01/13/17 08:30 BUN/Creatinine Ratio 9 % 01/13/17 08:30 Glucose 85 mg/dL (75-100) 01/13/17 08:30 POC Glucose 138 (70-105) H 01/13/17 16:55 Calcium 7.9 mg/dL (8.4-10.2) L 01/13/17 08:30 Total Creatine Kinase 138 units/L (55-170) 01/12/17 07:11 CK-MB (CK-2) 1.4 ng/mL (0.0-4.0) 01/12/17 07:11 CK-MB (CK-2) Rel Index 1.0 (0-4) 01/12/17 07:11 Troponin T 0.022 ng/mL (0.00-0.029) 01/12/17 07:11 NT-Pro-B Natriuret Pep 19001 pg/mL (0-900) H 01/11/17 18:25 Urine Color Yellow (Yellow) 01/13/17 06:40 Urine Turbidity Clear (Clear) 01/13/17 06:40 Urine pH 6.0 (5.0-7.0) 01/13/17 06:40 Ur Specific [place] 1.009 (1.003-1.030) 01/13/17 06:40 Urine Protein 30 mg/dl mg/dL (Negative) 01/13/17 06:40 Urine Glucose (UA) Neg mg/dL (Negative) 01/13/17 06:40 Urine Ketones Neg mg/dL (Negative) 01/13/17 06:40 Urine Blood Neg (Negative) 01/13/17 06:40 Urine Nitrite Neg (Negative) 01/13/17 06:40 Urine Bilirubin Neg (Negative) 01/13/17 06:40 Urine Urobilinogen < 2.0 mg/dL (<2.0) 01/13/17 06:40 Ur Leukocyte Esterase Neg (Negative) 01/13/17 06:40 Urine WBC (Auto) < 1.0 /HPF (0.0-6.0) 01/13/17 06:40 Urine RBC (Auto) 1.0 /HPF (0.0-6.0) 01/13/17 06:40 U Epithel Cells (Auto) < 1.0 /HPF (0-13.0) 01/13/17 06:40 Urine Creatinine 54.3 mg/dL (0.1-20.0) H 01/13/17 06:40 Protein/Creatinin Ratio 1.25 01/13/17 06:40 Urine Total Protein 68 mg/dL (5-11.8) H 01/13/17 06:40 <RAJWINDER MARTINEZ M - Last Filed: 02/11/17 19:59> Hospitalist Physical - Constitutional Vitals: Temp Pulse Resp BP Pulse Ox 98.9 F 68 18 143/76 94 01/16/17 00:30 01/16/17 09:30 01/16/17 00:30 01/16/17 09:30 01/16/17 08:10 Results - Labs CBC & Chem 7: 01/12/17 07:11 01/14/17 06:54 Labs: Laboratory Last Values WBC 10.2 K/mm3 (4.5-11.0) 01/12/17 07:11 RBC 3.32 M/mm3 (3.65-5.03) L 01/12/17 07:11 Hgb 9.1 gm/dl (11.8-15.2) L 01/12/17 07:11 Hct 26.7 % (35.5-45.6) L 01/12/17 07:11 MCV 80 fl (84-94) L 01/12/17 07:11 MCH 27 pg (28-32) L 01/12/17 07:11 MCHC 34 % (32-34) 01/12/17 07:11 RDW 17.4 % (13.2-15.2) H 01/12/17 07:11 Plt Count 353 K/mm3 (140-440) 01/12/17 07:11 Add Manual Diff Complete 01/12/17 07:11 Total Counted 100 01/12/17 07:11 Seg Neuts % (Manual) 81.0 % (40.0-70.0) H 01/12/17 07:11 Band Neutrophils % 0 % 01/12/17 07:11 Lymphocytes % (Manual) 14.0 % (13.4-35.0) 01/12/17 07:11 Reactive Lymphs % (Man) 0 % 01/12/17 07:11 Monocytes % (Manual) 5.0 % (0.0-7.3) 01/12/17 07:11 Eosinophils % (Manual) 0 % (0.0-4.3) 01/12/17 07:11 Basophils % (Manual) 0 % (0.0-1.8) 01/12/17 07:11 Metamyelocytes % 0 % 01/12/17 07:11 Myelocytes % 0 % 01/12/17 07:11 Promyelocytes % 0 % 01/12/17 07:11 Blast Cells % 0 % 01/12/17 07:11 Nucleated RBC % Not Reportable 01/12/17 07:11 Seg Neutrophils # Man 8.3 K/mm3 (1.8-7.7) H 01/12/17 07:11 Band Neutrophils # 0.0 K/mm3 01/12/17 07:11 Lymphocytes # (Manual) 1.4 K/mm3 (1.2-5.4) 01/12/17 07:11 Abs React Lymphs (Man) 0.0 K/mm3 01/12/17 07:11 Monocytes # (Manual) 0.5 K/mm3 (0.0-0.8) 01/12/17 07:11 Eosinophils # (Manual) 0.0 K/mm3 (0.0-0.4) 01/12/17 07:11 Basophils # (Manual) 0.0 K/mm3 (0.0-0.1) 01/12/17 07:11 Metamyelocytes # 0.0 K/mm3 01/12/17 07:11 Myelocytes # 0.0 K/mm3 01/12/17 07:11 Promyelocytes # 0.0 K/mm3 01/12/17 07:11 Blast Cells # 0.0 K/mm3 01/12/17 07:11 WBC Morphology Not Reportable 01/12/17 07:11 Hypersegmented Neuts Not Reportable 01/12/17 07:11 Hyposegmented Neuts Not Reportable 01/12/17 07:11 Hypogranular Neuts Not Reportable 01/12/17 07:11 Smudge Cells Not Reportable 01/12/17 07:11 Toxic Granulation Not Reportable 01/12/17 07:11 Toxic Vacuolation Not Reportable 01/12/17 07:11 Dohle Bodies Not Reportable 01/12/17 07:11 Pelger-Huet Anomaly Not Reportable 01/12/17 07:11 Ragini Rods Not Reportable 01/12/17 07:11 Platelet Estimate Not Reportable 01/12/17 07:11 Clumped Platelets Not Reportable 01/12/17 07:11 Plt Clumps, EDTA Not Reportable 01/12/17 07:11 Large Platelets Not Reportable 01/12/17 07:11 Giant Platelets Not Reportable 01/12/17 07:11 Platelet Satelliting Not Reportable 01/12/17 07:11 Plt Morphology Comment Not Reportable 01/12/17 07:11 RBC Morphology Not Reportable 01/12/17 07:11 Dimorphic RBCs Not Reportable 01/12/17 07:11 Polychromasia Not Reportable 01/12/17 07:11 Hypochromasia 1+ 01/12/17 07:11 Poikilocytosis 1+ 01/12/17 07:11 Anisocytosis 1+ 01/12/17 07:11 Microcytosis Not Reportable 01/12/17 07:11 Macrocytosis Not Reportable 01/12/17 07:11 Spherocytes Not Reportable 01/12/17 07:11 Pappenheimer Bodies Not Reportable 01/12/17 07:11 Sickle Cells Not Reportable 01/12/17 07:11 Target Cells Few 01/12/17 07:11 Tear Drop Cells Not Reportable 01/12/17 07:11 Ovalocytes Not Reportable 01/12/17 07:11 Helmet Cells Not Reportable 01/12/17 07:11 [place] Bodies Not Reportable 01/12/17 07:11 [place] Rings Not Reportable 01/12/17 07:11 Elena Cells Not Reportable 01/12/17 07:11 Bite Cells Not Reportable 01/12/17 07:11 Crenated Cell Not Reportable 01/12/17 07:11 Elliptocytes Not Reportable 01/12/17 07:11 Acanthocytes (Spur) Not Reportable 01/12/17 07:11 Rouleaux Not Reportable 01/12/17 07:11 Hemoglobin C Crystals Not Reportable 01/12/17 07:11 Schistocytes Few 01/12/17 07:11 Malaria parasites Not Reportable 01/12/17 07:11 Scott Bodies Not Reportable 01/12/17 07:11 Hem Pathologist Commnt No 01/12/17 07:11 Sodium 136 mmol/L (137-145) L 01/14/17 06:54 Potassium 4.1 mmol/L (3.6-5.0) D 01/14/17 06:54 Chloride 101.3 mmol/L (98-107) 01/14/17 06:54 Carbon Dioxide 19 mmol/L (22-30) L 01/14/17 06:54 Anion Gap 20 mmol/L 01/14/17 06:54 BUN 14 mg/dL (9-20) 01/14/17 06:54 Creatinine 1.5 mg/dL (0.8-1.5) 01/14/17 06:54 Estimated GFR 56 ml/min 01/14/17 06:54 BUN/Creatinine Ratio 9 % 01/14/17 06:54 Glucose 100 mg/dL (75-100) 01/14/17 06:54 POC Glucose 190 (70-105) H 01/16/17 17:01 Calcium 8.3 mg/dL (8.4-10.2) L 01/14/17 06:54 Total Creatine Kinase 138 units/L (55-170) 01/12/17 07:11 CK-MB (CK-2) 1.4 ng/mL (0.0-4.0) 01/12/17 07:11 CK-MB (CK-2) Rel Index 1.0 (0-4) 01/12/17 07:11 Troponin T 0.022 ng/mL (0.00-0.029) 01/12/17 07:11 NT-Pro-B Natriuret Pep 92472 pg/mL (0-900) H 01/11/17 18:25 Urine Color Yellow (Yellow) 01/13/17 06:40 Urine Turbidity Clear (Clear) 01/13/17 06:40 Urine pH 6.0 (5.0-7.0) 01/13/17 06:40 Ur Specific [place] 1.009 (1.003-1.030) 01/13/17 06:40 Urine Protein 30 mg/dl mg/dL (Negative) 01/13/17 06:40 Urine Glucose (UA) Neg mg/dL (Negative) 01/13/17 06:40 Urine Ketones Neg mg/dL (Negative) 01/13/17 06:40 Urine Blood Neg (Negative) 01/13/17 06:40 Urine Nitrite Neg (Negative) 01/13/17 06:40 Urine Bilirubin Neg (Negative) 01/13/17 06:40 Urine Urobilinogen < 2.0 mg/dL (<2.0) 01/13/17 06:40 Ur Leukocyte Esterase Neg (Negative) 01/13/17 06:40 Urine WBC (Auto) < 1.0 /HPF (0.0-6.0) 01/13/17 06:40 Urine RBC (Auto) 1.0 /HPF (0.0-6.0) 01/13/17 06:40 U Epithel Cells (Auto) < 1.0 /HPF (0-13.0) 01/13/17 06:40 Urine Creatinine 54.3 mg/dL (0.1-20.0) H 01/13/17 06:40 Protein/Creatinin Ratio 1.25 01/13/17 06:40 Urine Total Protein 68 mg/dL (5-11.8) H 01/13/17 06:40
[2017-01-13] MEDS ORDERED: K-DUR PO ONE (20:39)
[2017-01-14] MEDS: LASIX IV SCH ×2 (05:25→17:25)
--- NOTE | 2017-01-14 07:38 | Ultrasound Report ---
ULTRASOUND RENAL BILATERAL HISTORY: Elevated creatinine, abnormal lab values. TECHNIQUE: transabdominal ultrasound with color Doppler interrogation. FINDINGS: The right kidney measures 11.1 x 5.5 x 6.0cm. Right renal cortex: 1.3cm. The left kidney measures 9.4 x 4.9 x 5.9cm. Left renal cortex: 1.6cm. The kidneys are normal size, contour and position. There is increased renal parenchymal echotexture bilaterally. Corticomedullary differentiation is preserved. No evidence for cystic disease, mass, hydronephrosis or perinephric fluid. The views of the bladder and the region of the ureters appear normal. IMPRESSION: Normal sized but echogenic kidneys consistent with nonspecific renal parenchymal disease.
[2017-01-14 07:49] LABS: Calcium 8.3 mg/dL (8.4-10.2); Chloride 101.3 mmol/L (98-107); Potassium 4.1 mmol/L (3.6-5.0)
[2017-01-14] MEDS: NOVOLOG SUB-Q SCH ×4 (09:46→22:29)
[2017-01-14] MEDS: LOPRESSOR PO SCH ×2 (09:46→22:28)
[2017-01-14] MEDS: LOVENOX SUB-Q SCH (09:47)
[2017-01-14] MEDS: ZESTRIL PO SCH (09:47)
[2017-01-14] MEDS: HALFPRIN EC PO SCH (09:47)
--- NOTE | 2017-01-14 12:00 | Progress Note ---
Assessment and Plan - Patient Problems (1) Acute exacerbation of congestive heart failure Current Visit: Yes Status: Acute Plan to address problem: ejection fraction 45-50% on echocardiogram. Continue medical therapy for heart failure with preserved ejection fraction. We will get a presantine thallium stress tomorrow morning. Subjective Date of service: 01/14/17 Interval history: Patient has no complaints. Objective Vital Signs Temp Pulse Resp BP Pulse Ox 01/14/17 09:47 81 155/92 01/14/17 09:46 81 155/92 01/14/17 08:00 77 01/13/17 20:06 98.4 F 75 18 149/83 96 01/13/17 19:30 71 01/13/17 16:52 98.0 F 76 18 143/71 100 - Physical Examination General: No Apparent Distress HEENT: Positive: PERRL Cardiac: Positive: Reg Rate and Rhythm Neuro: Positive: Grossly Intact Extremities: Present: edema - Labs and Meds Comprehensive Metabolic Panel 01/14/17 Range/Units 06:54 Sodium 136 L (137-145) mmol/L Potassium 4.1 D (3.6-5.0) mmol/L Chloride 101.3 (98-107) mmol/L Carbon Dioxide 19 L (22-30) mmol/L BUN 14 (9-20) mg/dL Creatinine 1.5 (0.8-1.5) mg/dL Glucose 100 (75-100) mg/dL Calcium 8.3 L (8.4-10.2) mg/dL
--- NOTE | 2017-01-14 16:47 | Progress Note ---
Assessment and Plan 1. FLACO on CKD vs CKD, baseline CR unavailable. 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 CR has been stable at 1.6 for the last 3 days ? baseline 2. Acute on chronic systolic Congestive heart failure 3. Diabetes mellitus II with diabetic nephropathy 4. Hypokalemia 5. Essential Hyperten 6. Anemia likely of CKD Plan: Renal Ultrasound with no hydronephrosis Urine studies with + protein/ no blood Continue IV diuretics Continue ACEI for now. CR has remained stable, likely at his baseline. Supportive care for FLACO/CKD Subjective Date of service: 01/14/17 Interval history: Feels better, less SOB/edema Objective - Exam Narrative Exam: General appearance: well-developed, well-nourished, appears stated age EENT: PERRL, mucous membranes moist Neck: Present: neck supple, trachea midline. Absent: JVD/HJR, Masses Respiratory: Rales, Decreased Breath Sounds Heart: regular, normal heart rate, S1S2, no murmurs Gastrointestinal: Present: normoactive bowel sounds. Absent: tenderness Integumentary: no rash, warm and dry Neurologic: no focal deficit, alert and oriented x3, gait normal, strength 5/5 Musculoskeletal: Absent: deformities, joint swelling Psychiatric: mood/affect appropriate, cooperative - Vital Signs Vital signs: Vital Signs - 12hr 01/14/17 01/14/17 01/14/17 07:50 08:00 09:46 Temperature 97.4 F L Pulse Rate 80 77 81 Respiratory 18 Rate Blood Pressure 155/92 155/92 O2 Sat by Pulse 99 Oximetry 01/14/17 01/14/17 09:47 12:05 Temperature Pulse Rate 81 70 Respiratory 18 Rate Blood Pressure 155/92 152/86 O2 Sat by Pulse 96 Oximetry - Lab 01/12/17 07:11 01/14/17 06:54 Most recent lab results Calcium 8.3 mg/dL (8.4-10.2) L 01/14/17 06:54 Urine Creatinine 54.3 mg/dL (0.1-20.0) H 01/13/17 06:40 Urine Total Protein 68 mg/dL (5-11.8) H 01/13/17 06:40
--- NOTE | 2017-01-14 17:45 | Progress Note ---
Assessment and Plan Assessment and plan: Patient is 66-year-old man with history hypertension, type 2 diabetes mellitus and CHF who presents with shortness of breath and generalized edema. Acute on chronic systolic Congestive heart failure Echocardiogram on 01/12/17 with ejection fraction 45-50% presantine thallium stress test once heart failure is resolved. Continue on IV Diuresis and beta blockers Strict I&O's and daily weights Low-sodium/cardiac diet/fluid restriction Closely monitor electrolytes Cardiology evaluation Diabetes mellitus Accu-Chek before meals and at bedtime Sliding scale insulin/NovoLog ADA carbohydrate consistent diet Acute renal failure Nephrology consulted Repeat BMP Hypokalemia Replaced Closely monitor electrolytes Hypertensive urgency Continue home antihypertensive medications Closely monitor blood pressure Chronic anemia H&H stable for patient at this point; no blood transfusions needed Closely monitor H&H Stress test tomorrow History Interval history: Patient was seen and examined. Follow-up on current diagnosis. Overnight uneventful. Patient denies any chest pain, shortness breath, nausea/vomiting or severe headaches. Imaging, nursing note, chart, labs and old chart reviewed. Discussed with patient. Hospitalist Physical - Physical exam Narrative exam: GEN: WDWN, NAD, AWAKE, ALERT, ORIENTATED 3 HEENT: NCAT, EOMI, PERRL, OP Clear NECK: supple, no adenopathy, no thyromegaly, CVS/HEART: RRR, NORMAL S1S2, NO JVD, pulses present bilaterally CHEST/LUNGS: Bilateral Reduced breath sounds, Symmetrical chest expansion, diminished air entry bilaterally GI/Abdomen: soft, NTND, good bowel sounds, no guarding or rebound /Bladder: no suprapubic tenderness, no CVA or paraspinal tenderness EXT/Skin: 3+ pitting bilateral edema MSK: FROM x 4 Neuro: CN 2-12 grossly intact, no new focal deficits Psych: calm - Constitutional Vitals: Temp Pulse Resp BP Pulse Ox 97.4 F L 70 18 152/86 96 01/14/17 07:50 01/14/17 12:05 01/14/17 12:05 01/14/17 12:05 01/14/17 12:05 General appearance: Present: no acute distress Results - Labs CBC & Chem 7: 01/12/17 07:11 01/14/17 06:54 Labs: Laboratory Last Values WBC 10.2 K/mm3 (4.5-11.0) 01/12/17 07:11 RBC 3.32 M/mm3 (3.65-5.03) L 01/12/17 07:11 Hgb 9.1 gm/dl (11.8-15.2) L 01/12/17 07:11 Hct 26.7 % (35.5-45.6) L 01/12/17 07:11 MCV 80 fl (84-94) L 01/12/17 07:11 MCH 27 pg (28-32) L 01/12/17 07:11 MCHC 34 % (32-34) 01/12/17 07:11 RDW 17.4 % (13.2-15.2) H 01/12/17 07:11 Plt Count 353 K/mm3 (140-440) 01/12/17 07:11 Add Manual Diff Complete 01/12/17 07:11 Total Counted 100 01/12/17 07:11 Seg Neuts % (Manual) 81.0 % (40.0-70.0) H 01/12/17 07:11 Band Neutrophils % 0 % 01/12/17 07:11 Lymphocytes % (Manual) 14.0 % (13.4-35.0) 01/12/17 07:11 Reactive Lymphs % (Man) 0 % 01/12/17 07:11 Monocytes % (Manual) 5.0 % (0.0-7.3) 01/12/17 07:11 Eosinophils % (Manual) 0 % (0.0-4.3) 01/12/17 07:11 Basophils % (Manual) 0 % (0.0-1.8) 01/12/17 07:11 Metamyelocytes % 0 % 01/12/17 07:11 Myelocytes % 0 % 01/12/17 07:11 Promyelocytes % 0 % 01/12/17 07:11 Blast Cells % 0 % 01/12/17 07:11 Nucleated RBC % Not Reportable 01/12/17 07:11 Seg Neutrophils # Man 8.3 K/mm3 (1.8-7.7) H 01/12/17 07:11 Band Neutrophils # 0.0 K/mm3 01/12/17 07:11 Lymphocytes # (Manual) 1.4 K/mm3 (1.2-5.4) 01/12/17 07:11 Abs React Lymphs (Man) 0.0 K/mm3 01/12/17 07:11 Monocytes # (Manual) 0.5 K/mm3 (0.0-0.8) 01/12/17 07:11 Eosinophils # (Manual) 0.0 K/mm3 (0.0-0.4) 01/12/17 07:11 Basophils # (Manual) 0.0 K/mm3 (0.0-0.1) 01/12/17 07:11 Metamyelocytes # 0.0 K/mm3 01/12/17 07:11 Myelocytes # 0.0 K/mm3 01/12/17 07:11 Promyelocytes # 0.0 K/mm3 01/12/17 07:11 Blast Cells # 0.0 K/mm3 01/12/17 07:11 WBC Morphology Not Reportable 01/12/17 07:11 Hypersegmented Neuts Not Reportable 01/12/17 07:11 Hyposegmented Neuts Not Reportable 01/12/17 07:11 Hypogranular Neuts Not Reportable 01/12/17 07:11 Smudge Cells Not Reportable 01/12/17 07:11 Toxic Granulation Not Reportable 01/12/17 07:11 Toxic Vacuolation Not Reportable 01/12/17 07:11 Dohle Bodies Not Reportable 01/12/17 07:11 Pelger-Huet Anomaly Not Reportable 01/12/17 07:11 Ragini Rods Not Reportable 01/12/17 07:11 Platelet Estimate Not Reportable 01/12/17 07:11 Clumped Platelets Not Reportable 01/12/17 07:11 Plt Clumps, EDTA Not Reportable 01/12/17 07:11 Large Platelets Not Reportable 01/12/17 07:11 Giant Platelets Not Reportable 01/12/17 07:11 Platelet Satelliting Not Reportable 01/12/17 07:11 Plt Morphology Comment Not Reportable 01/12/17 07:11 RBC Morphology Not Reportable 01/12/17 07:11 Dimorphic RBCs Not Reportable 01/12/17 07:11 Polychromasia Not Reportable 01/12/17 07:11 Hypochromasia 1+ 01/12/17 07:11 Poikilocytosis 1+ 01/12/17 07:11 Anisocytosis 1+ 01/12/17 07:11 Microcytosis Not Reportable 01/12/17 07:11 Macrocytosis Not Reportable 01/12/17 07:11 Spherocytes Not Reportable 01/12/17 07:11 Pappenheimer Bodies Not Reportable 01/12/17 07:11 Sickle Cells Not Reportable 01/12/17 07:11 Target Cells Few 01/12/17 07:11 Tear Drop Cells Not Reportable 01/12/17 07:11 Ovalocytes Not Reportable 01/12/17 07:11 Helmet Cells Not Reportable 01/12/17 07:11 [place]ule[place] Bodies Not Reportable 01/12/17 07:11 [place] Rings Not Reportable 01/12/17 07:11 [place] Cells Not Reportable 01/12/17 07:11 Bite Cells Not Reportable 01/12/17 07:11 Crenated Cell Not Reportable 01/12/17 07:11 Elliptocytes Not Reportable 01/12/17 07:11 Acanthocytes (Spur) Not Reportable 01/12/17 07:11 Rouleaux Not Reportable 01/12/17 07:11 Hemoglobin C Crystals Not Reportable 01/12/17 07:11 Schistocytes Few 01/12/17 07:11 Malaria parasites Not Reportable 01/12/17 07:11 Scott Bodies Not Reportable 01/12/17 07:11 Hem Pathologist Commnt No 01/12/17 07:11 Sodium 136 mmol/L (137-145) L 01/14/17 06:54 Potassium 4.1 mmol/L (3.6-5.0) D 01/14/17 06:54 Chloride 101.3 mmol/L (98-107) 01/14/17 06:54 Carbon Dioxide 19 mmol/L (22-30) L 01/14/17 06:54 Anion Gap 20 mmol/L 01/14/17 06:54 BUN 14 mg/dL (9-20) 01/14/17 06:54 Creatinine 1.5 mg/dL (0.8-1.5) 01/14/17 06:54 Estimated GFR 56 ml/min 01/14/17 06:54 BUN/Creatinine Ratio 9 % 01/14/17 06:54 Glucose 100 mg/dL (75-100) 01/14/17 06:54 POC Glucose 169 (70-105) H 01/14/17 12:08 Calcium 8.3 mg/dL (8.4-10.2) L 01/14/17 06:54 Total Creatine Kinase 138 units/L (55-170) 01/12/17 07:11 CK-MB (CK-2) 1.4 ng/mL (0.0-4.0) 01/12/17 07:11 CK-MB (CK-2) Rel Index 1.0 (0-4) 01/12/17 07:11 Troponin T 0.022 ng/mL (0.00-0.029) 01/12/17 07:11 NT-Pro-B Natriuret Pep 74060 pg/mL (0-900) H 01/11/17 18:25 Urine Color Yellow (Yellow) 01/13/17 06:40 Urine Turbidity Clear (Clear) 01/13/17 06:40 Urine pH 6.0 (5.0-7.0) 01/13/17 06:40 Ur Specific [place] 1.009 (1.003-1.030) 01/13/17 06:40 Urine Protein 30 mg/dl mg/dL (Negative) 01/13/17 06:40 Urine Glucose (UA) Neg mg/dL (Negative) 01/13/17 06:40 Urine Ketones Neg mg/dL (Negative) 01/13/17 06:40 Urine Blood Neg (Negative) 01/13/17 06:40 Urine Nitrite Neg (Negative) 01/13/17 06:40 Urine Bilirubin Neg (Negative) 01/13/17 06:40 Urine Urobilinogen < 2.0 mg/dL (<2.0) 01/13/17 06:40 Ur Leukocyte Esterase Neg (Negative) 01/13/17 06:40 Urine WBC (Auto) < 1.0 /HPF (0.0-6.0) 01/13/17 06:40 Urine RBC (Auto) 1.0 /HPF (0.0-6.0) 01/13/17 06:40 U Epithel Cells (Auto) < 1.0 /HPF (0-13.0) 01/13/17 06:40 Urine Creatinine 54.3 mg/dL (0.1-20.0) H 01/13/17 06:40 Protein/Creatinin Ratio 1.25 01/13/17 06:40 Urine Total Protein 68 mg/dL (5-11.8) H 01/13/17 06:40
[2017-01-15] MEDS: LASIX IV SCH ×2 (05:32→18:47)
[2017-01-15] MEDS: NOVOLOG SUB-Q SCH ×3 (07:48→16:49)
[2017-01-15] MEDS ORDERED: LEXISCAN IV ONE ×2 (09:45→09:47)
[2017-01-15] MEDS: LOVENOX SUB-Q SCH (12:30)
[2017-01-15] MEDS: LOPRESSOR PO SCH ×2 (12:30→21:08)
[2017-01-15] MEDS: HALFPRIN EC PO SCH (12:30)
[2017-01-15] MEDS: ZESTRIL PO SCH (12:30)
--- NOTE | 2017-01-15 13:20 | Query- Renal Failure ---
Dear Wise Date: 01/15/17 [employer] Manager/CDS:____Rohit Phone#:___[phone] Exercise your independent professional judgment when responding to query. Questions asked do not imply a particular answer is desired or expected. We greatly appreciate your clarification on this issue. Clinical Documentation States: 66 year old male was admitted on 01/11/17 The progress note (Dr. Villanueva 01/14/17) states " Assessment and plan: Patient is 66-year-old man with history hypertension, type 2 diabetes mellitus and CHF who presents with shortness of breath and generalized edema. Acute renal failure Nephrology consulted Repeat BMP " The Nephrology progress note (Dr. Sr 01/14/17) states " Assessment and Plan 1. FLACO on CKD vs CKD, baseline CR unavailable. 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 CR has been stable at 1.6 for the last 3 days ? baseline " Clinical Findings Show: Creatinine: 1.6 BUN/Creatinine Ratio: 9 Please clarify if you mean: Acute Renal Failure with or due to: [ ] Tubular Necrosis [ ] Medullary Necrosis [ x] Vasomotor Nephropathy [ ] Shock Kidney [ ] Tubular Nephrosis [ ] Renal Tubular Stasis [ ] Cortical Necrosis [ ] Acute Renal Failure (unspecified) [ ] Lower Tubular Nephrosis [ ] Other: [ ] Not Applicable Present on Admission: [ x] Yes (Y) [ ] Clinically undeterminable (W) [ ] No (N) Please also document response in your Progress Notes and/or Discharge Summary and indicate if the condition was present on admission. MTDD
--- NOTE | 2017-01-15 16:17 | Progress Note ---
Assessment and Plan 1. FLACO on CKD vs CKD, baseline CR unavailable. 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 CR has been stable at 1.6 for the last 3 days ? baseline 2. Acute on chronic systolic Congestive heart failure 3. Diabetes mellitus II with diabetic nephropathy 4. Hypokalemia 5. Essential Hyperten 6. Anemia likely of CKD Plan: CR stable. Renal Ultrasound with no hydronephrosis Urine studies with + protein/ no blood Continue IV diuretics -change to 40 BID lasix upon discharge Continue ACEI for now. Supportive care for FLACO/CKD D/c planning per primary team Subjective Date of service: 01/16/17 Interval history: Feels better, less SOB/edema Objective - Exam Narrative Exam: General appearance: well-developed, well-nourished, appears stated age EENT: PERRL, mucous membranes moist Neck: Present: neck supple, trachea midline. Absent: JVD/HJR, Masses Respiratory: Rales, Decreased Breath Sounds Heart: regular, normal heart rate, S1S2, no murmurs Gastrointestinal: Present: normoactive bowel sounds. Absent: tenderness Integumentary: no rash, warm and dry Neurologic: no focal deficit, alert and oriented x3, gait normal, strength 5/5 Musculoskeletal: Absent: deformities, joint swelling Psychiatric: mood/affect appropriate, cooperative - Vital Signs Vital signs: Vital Signs - 12hr 01/15/17 01/15/17 01/15/17 05:37 08:27 09:25 Temperature 98.1 F Pulse Rate 77 74 Respiratory 20 Rate Blood Pressure 152/78 173/96 O2 Sat by Pulse 93 99 Oximetry 01/15/17 01/15/17 01/15/17 09:49 09:50 09:51 Temperature Pulse Rate 78 80 84 Respiratory Rate Blood Pressure 173/96 145/77 159/92 O2 Sat by Pulse Oximetry 01/15/17 01/15/17 09:52 09:53 Temperature Pulse Rate 81 83 Respiratory Rate Blood Pressure 169/91 161/89 O2 Sat by Pulse Oximetry - Lab 01/12/17 07:11 01/14/17 06:54 Most recent lab results Calcium 8.3 mg/dL (8.4-10.2) L 01/14/17 06:54 Urine Creatinine 54.3 mg/dL (0.1-20.0) H 01/13/17 06:40 Urine Total Protein 68 mg/dL (5-11.8) H 01/13/17 06:40
--- NOTE | 2017-01-15 17:19 | Progress Note ---
Assessment and Plan - Patient Problems (1) Volume overload Current Visit: Yes Status: Acute Plan to address problem: Cardiac status is stable, continue medical therapy. Stable cardiac status for discharge. Follow-up in our office in one week. Subjective Date of service: 01/15/17 Interval history: Patient underwent an Persantine thallium stress test, normal perfusion, left ventricular ejection fraction 47%. Objective Vital Signs Temp Pulse Resp BP Pulse Ox 01/15/17 09:53 83 161/89 01/15/17 09:52 81 169/91 01/15/17 09:51 84 159/92 01/15/17 09:50 80 145/77 01/15/17 09:49 78 173/96 01/15/17 09:25 74 173/96 01/15/17 08:27 99 01/15/17 05:37 98.1 F 77 20 152/78 93 01/15/17 00:43 98.1 F 66 18 138/80 95 01/14/17 21:30 71 01/14/17 20:42 98.6 F 82 18 158/94 92 01/14/17 20:29 99 - Physical Examination General: No Apparent Distress HEENT: Positive: PERRL Neck: Positive: neck supple, trachea midline. Negative: JVD/HJR, Masses Cardiac: Positive: Reg Rate and Rhythm Lungs: Positive: Decreased Breath Sounds Neuro: Positive: Grossly Intact Abdomen: Positive: Soft Skin: Positive: Clear Extremities: Absent: edema
--- NOTE | 2017-01-15 17:38 | Progress Note ---
Assessment and Plan Assessment and plan: Patient is 66-year-old man with history of hypertension, type 2 diabetes mellitus and CHF who presents with shortness of breath and generalized edema. Acute on chronic systolic Congestive heart failure Echocardiogram on 01/12/17 with ejection fraction 45-50% presantine thallium stress test once heart failure is resolved. Continue on IV Diuresis and beta blockers Strict I&O's and daily weights Low-sodium/cardiac diet/fluid restriction Closely monitor electrolytes Cardiology evaluation Diabetes mellitus Accu-Chek before meals and at bedtime Sliding scale insulin/NovoLog ADA carbohydrate consistent diet Acute renal failure vasomotor nephropathy roni/ckd 3 most likely Nephrology consulted Repeat BMP Hypokalemia Replaced Closely monitor electrolytes Hypertensive urgency Continue home antihypertensive medications Closely monitor blood pressure Chronic anemia H&H stable for patient at this point; no blood transfusions needed Closely monitor H&H per Cardiology, Dr. Rich "(1) Volume overload Current Visit: Yes Status: Acute Plan to address problem: Cardiac status is stable, continue medical therapy. Stable cardiac status for discharge. Follow-up in our office in one week. Subjective Date of service: 01/15/17 Interval history: Patient underwent an Persantine thallium stress test, normal perfusion, left ventricular ejection fraction 47%." -Acute hypoxic respiratory failure, poa: try to wean off O2, d/w nurse Andrez. If he needs O2 will setup tomorrow. History Interval history: Patient was seen and examined. Follow-up on current diagnosis. Overnight uneventful. Patient denies any chest pain, nausea/vomiting or severe headaches. Imaging, nursing note, chart, labs and old chart reviewed. Discussed with patient. Sob is better but still on o2 Hospitalist Physical - Physical exam Narrative exam: GEN: WDWN, NAD, AWAKE, ALERT, ORIENTATED 3 HEENT: NCAT, EOMI, PERRL, OP Clear NECK: supple, no adenopathy, no thyromegaly, CVS/HEART: RRR, NORMAL S1S2, NO JVD, pulses present bilaterally CHEST/LUNGS: Bilateral Reduced breath sounds, Symmetrical chest expansion, diminished air entry bilaterally GI/Abdomen: soft, NTND, good bowel sounds, no guarding or rebound /Bladder: no suprapubic tenderness, no CVA or paraspinal tenderness EXT/Skin: 3+ pitting bilateral edema MSK: FROM x 4 Neuro: CN 2-12 grossly intact, no new focal deficits Psych: calm - Constitutional Vitals: Temp Pulse Resp BP Pulse Ox 98.1 F 83 20 161/89 99 01/15/17 05:37 01/15/17 09:53 01/15/17 05:37 01/15/17 09:53 01/15/17 08:27 General appearance: Present: no acute distress Results - Labs CBC & Chem 7: 01/12/17 07:11 01/14/17 06:54 Labs: Laboratory Last Values WBC 10.2 K/mm3 (4.5-11.0) 01/12/17 07:11 RBC 3.32 M/mm3 (3.65-5.03) L 01/12/17 07:11 Hgb 9.1 gm/dl (11.8-15.2) L 01/12/17 07:11 Hct 26.7 % (35.5-45.6) L 01/12/17 07:11 MCV 80 fl (84-94) L 01/12/17 07:11 MCH 27 pg (28-32) L 01/12/17 07:11 MCHC 34 % (32-34) 01/12/17 07:11 RDW 17.4 % (13.2-15.2) H 01/12/17 07:11 Plt Count 353 K/mm3 (140-440) 01/12/17 07:11 Add Manual Diff Complete 01/12/17 07:11 Total Counted 100 01/12/17 07:11 Seg Neuts % (Manual) 81.0 % (40.0-70.0) H 01/12/17 07:11 Band Neutrophils % 0 % 01/12/17 07:11 Lymphocytes % (Manual) 14.0 % (13.4-35.0) 01/12/17 07:11 Reactive Lymphs % (Man) 0 % 01/12/17 07:11 Monocytes % (Manual) 5.0 % (0.0-7.3) 01/12/17 07:11 Eosinophils % (Manual) 0 % (0.0-4.3) 01/12/17 07:11 Basophils % (Manual) 0 % (0.0-1.8) 01/12/17 07:11 Metamyelocytes % 0 % 01/12/17 07:11 Myelocytes % 0 % 01/12/17 07:11 Promyelocytes % 0 % 01/12/17 07:11 Blast Cells % 0 % 01/12/17 07:11 Nucleated RBC % Not Reportable 01/12/17 07:11 Seg Neutrophils # Man 8.3 K/mm3 (1.8-7.7) H 01/12/17 07:11 Band Neutrophils # 0.0 K/mm3 01/12/17 07:11 Lymphocytes # (Manual) 1.4 K/mm3 (1.2-5.4) 01/12/17 07:11 Abs React Lymphs (Man) 0.0 K/mm3 01/12/17 07:11 Monocytes # (Manual) 0.5 K/mm3 (0.0-0.8) 01/12/17 07:11 Eosinophils # (Manual) 0.0 K/mm3 (0.0-0.4) 01/12/17 07:11 Basophils # (Manual) 0.0 K/mm3 (0.0-0.1) 01/12/17 07:11 Metamyelocytes # 0.0 K/mm3 01/12/17 07:11 Myelocytes # 0.0 K/mm3 01/12/17 07:11 Promyelocytes # 0.0 K/mm3 01/12/17 07:11 Blast Cells # 0.0 K/mm3 01/12/17 07:11 WBC Morphology Not Reportable 01/12/17 07:11 Hypersegmented Neuts Not Reportable 01/12/17 07:11 Hyposegmented Neuts Not Reportable 01/12/17 07:11 Hypogranular Neuts Not Reportable 01/12/17 07:11 Smudge Cells Not Reportable 01/12/17 07:11 Toxic Granulation Not Reportable 01/12/17 07:11 Toxic Vacuolation Not Reportable 01/12/17 07:11 Dohle Bodies Not Reportable 01/12/17 07:11 Pelger-Huet Anomaly Not Reportable 01/12/17 07:11 Ragini Rods Not Reportable 01/12/17 07:11 Platelet Estimate Not Reportable 01/12/17 07:11 Clumped Platelets Not Reportable 01/12/17 07:11 Plt Clumps, EDTA Not Reportable 01/12/17 07:11 Large Platelets Not Reportable 01/12/17 07:11 Giant Platelets Not Reportable 01/12/17 07:11 Platelet Satelliting Not Reportable 01/12/17 07:11 Plt Morphology Comment Not Reportable 01/12/17 07:11 RBC Morphology Not Reportable 01/12/17 07:11 Dimorphic RBCs Not Reportable 01/12/17 07:11 Polychromasia Not Reportable 01/12/17 07:11 Hypochromasia 1+ 01/12/17 07:11 Poikilocytosis 1+ 01/12/17 07:11 Anisocytosis 1+ 01/12/17 07:11 Microcytosis Not Reportable 01/12/17 07:11 Macrocytosis Not Reportable 01/12/17 07:11 Spherocytes Not Reportable 01/12/17 07:11 Pappenheimer Bodies Not Reportable 01/12/17 07:11 Sickle Cells Not Reportable 01/12/17 07:11 Target Cells Few 01/12/17 07:11 Tear Drop Cells Not Reportable 01/12/17 07:11 Ovalocytes Not Reportable 01/12/17 07:11 Helmet Cells Not Reportable 01/12/17 07:11 Archule[place] Bodies Not Reportable 01/12/17 07:11 [place] Rings Not Reportable 01/12/17 07:11 [place] Cells Not Reportable 01/12/17 07:11 Bite Cells Not Reportable 01/12/17 07:11 Crenated Cell Not Reportable 01/12/17 07:11 Elliptocytes Not Reportable 01/12/17 07:11 Acanthocytes (Spur) Not Reportable 01/12/17 07:11 Rouleaux Not Reportable 01/12/17 07:11 Hemoglobin C Crystals Not Reportable 01/12/17 07:11 Schistocytes Few 01/12/17 07:11 Malaria parasites Not Reportable 01/12/17 07:11 Scott Bodies Not Reportable 01/12/17 07:11 Hem Pathologist Commnt No 01/12/17 07:11 Sodium 136 mmol/L (137-145) L 01/14/17 06:54 Potassium 4.1 mmol/L (3.6-5.0) D 01/14/17 06:54 Chloride 101.3 mmol/L (98-107) 01/14/17 06:54 Carbon Dioxide 19 mmol/L (22-30) L 01/14/17 06:54 Anion Gap 20 mmol/L 01/14/17 06:54 BUN 14 mg/dL (9-20) 01/14/17 06:54 Creatinine 1.5 mg/dL (0.8-1.5) 01/14/17 06:54 Estimated GFR 56 ml/min 01/14/17 06:54 BUN/Creatinine Ratio 9 % 01/14/17 06:54 Glucose 100 mg/dL (75-100) 01/14/17 06:54 POC Glucose 154 (70-105) H 01/15/17 12:11 Calcium 8.3 mg/dL (8.4-10.2) L 01/14/17 06:54 Total Creatine Kinase 138 units/L (55-170) 01/12/17 07:11 CK-MB (CK-2) 1.4 ng/mL (0.0-4.0) 01/12/17 07:11 CK-MB (CK-2) Rel Index 1.0 (0-4) 01/12/17 07:11 Troponin T 0.022 ng/mL (0.00-0.029) 01/12/17 07:11 NT-Pro-B Natriuret Pep 98254 pg/mL (0-900) H 01/11/17 18:25 Urine Color Yellow (Yellow) 01/13/17 06:40 Urine Turbidity Clear (Clear) 01/13/17 06:40 Urine pH 6.0 (5.0-7.0) 01/13/17 06:40 Ur Specific [place] 1.009 (1.003-1.030) 01/13/17 06:40 Urine Protein 30 mg/dl mg/dL (Negative) 01/13/17 06:40 Urine Glucose (UA) Neg mg/dL (Negative) 01/13/17 06:40 Urine Ketones Neg mg/dL (Negative) 01/13/17 06:40 Urine Blood Neg (Negative) 01/13/17 06:40 Urine Nitrite Neg (Negative) 01/13/17 06:40 Urine Bilirubin Neg (Negative) 01/13/17 06:40 Urine Urobilinogen < 2.0 mg/dL (<2.0) 01/13/17 06:40 Ur Leukocyte Esterase Neg (Negative) 01/13/17 06:40 Urine WBC (Auto) < 1.0 /HPF (0.0-6.0) 01/13/17 06:40 Urine RBC (Auto) 1.0 /HPF (0.0-6.0) 01/13/17 06:40 U Epithel Cells (Auto) < 1.0 /HPF (0-13.0) 01/13/17 06:40 Urine Creatinine 54.3 mg/dL (0.1-20.0) H 01/13/17 06:40 Protein/Creatinin Ratio 1.25 01/13/17 06:40 Urine Total Protein 68 mg/dL (5-11.8) H 01/13/17 06:40
--- NOTE | 2017-01-15 22:21 | Treadmill Report ---
THALLIUM STRESS TEST LEFT VENTRICLE: Left ventricle appears mildly dilated. Perfusion study demonstrates homogeneous uptake of the tracer in all segments, no significant perfusion defects identified. Gated analysis demonstrates mild left ventricular systolic dysfunction, ejection fraction calculated at 47%. CONCLUSION: Evidence of mild dilated cardiomyopathy. Normal perfusion imaging suggests a mild nonischemic cardiomyopathy. Clinical correlation is recommended. JOB# [id number] CA/NTS
[2017-01-16] MEDS: NOVOLOG SUB-Q SCH ×4 (00:14→16:58)
[2017-01-16] MEDS: LASIX IV SCH (05:17)
[2017-01-16] MEDS: ZESTRIL PO SCH (09:29)
[2017-01-16] MEDS: HALFPRIN EC PO SCH (09:30)
[2017-01-16] MEDS: LOPRESSOR PO SCH (09:30)
[2017-01-16] MEDS: LOVENOX SUB-Q SCH (09:30)
[2017-01-16 09:31] VITALS: BP 143/76
--- NOTE | 2017-01-16 11:14 | Progress Note ---
Assessment and Plan - Patient Problems (1) Acute exacerbation of congestive heart failure Current Visit: Yes Status: Acute Plan to address problem: ejection fraction 45-50% on echocardiogram. normal persantine thallium stress test Continue medical therapy for heart failure with preserved ejection fraction. Subjective Date of service: 01/16/17 Interval history: Patient has no complaints. Patient reports his breathing is better. Objective Vital Signs Temp Pulse Resp BP BP Pulse Ox 01/16/17 09:30 68 143/76 01/16/17 09:29 68 143/76 01/16/17 08:10 94 01/16/17 05:31 73 153/83 94 01/16/17 00:30 98.9 F 68 18 148/74 100 01/16/17 00:29 93 H 128/84 96 01/16/17 00:26 70 148/74 100 01/16/17 00:18 80 01/15/17 22:05 95 01/15/17 22:00 18 01/15/17 20:00 98.2 F 77 20 168/94 95 01/15/17 12:06 98.0 F 77 18 150/78 98 - Physical Examination General: No Apparent Distress HEENT: Positive: PERRL Cardiac: Positive: Reg Rate and Rhythm Neuro: Positive: Grossly Intact Abdomen: Positive: Soft Skin: Positive: Clear Extremities: Absent: edema
--- NOTE | 2017-01-16 13:02 | Progress Note ---
Assessment and Plan 1. FLACO on CKD vs CKD, baseline CR unavailable. 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 CR has been stable at 1.6 for the last 3 days ? baseline 2. Acute on chronic systolic Congestive heart failure 3. Diabetes mellitus II with diabetic nephropathy 4. Hypokalemia 5. Essential Hypertension 6. Anemia likely of CKD Plan: CR stable. Renal Ultrasound with no hydronephrosis Urine studies with + protein/ no blood Continue IV diuretics -change to 40 BID Lasix upon discharge Continue ACEI for now. Supportive care for FLACO/CKD Subjective Date of service: 01/16/17 Interval history: Less SOB/edema Objective - Exam Narrative Exam: General appearance: well-developed, well-nourished, appears stated age EENT: PERRL, mucous membranes moist Neck: Present: neck supple, trachea midline. Absent: JVD/HJR, Masses Respiratory: Rales, Decreased Breath Sounds Heart: regular, normal heart rate, S1S2, no murmurs Gastrointestinal: Present: normoactive bowel sounds. Absent: tenderness Integumentary: no rash, warm and dry Neurologic: no focal deficit, alert and oriented x3, gait normal, strength 5/5 Musculoskeletal: Absent: deformities, joint swelling Psychiatric: mood/affect appropriate, cooperative - Vital Signs Vital signs: Vital Signs - 12hr 01/16/17 01/16/17 01/16/17 05:31 08:10 09:29 Pulse Rate 73 68 Blood Pressure 153/83 143/76 O2 Sat by Pulse 94 94 Oximetry 01/16/17 09:30 Pulse Rate 68 Blood Pressure 143/76 O2 Sat by Pulse Oximetry - Lab 01/12/17 07:11 01/14/17 06:54 Most recent lab results Calcium 8.3 mg/dL (8.4-10.2) L 01/14/17 06:54 Urine Creatinine 54.3 mg/dL (0.1-20.0) H 01/13/17 06:40 Urine Total Protein 68 mg/dL (5-11.8) H 01/13/17 06:40
--- NOTE | 2017-01-16 15:18 | Progress Note ---
Assessment and Plan Assessment and plan: Patient is 66-year-old man with history of hypertension, type 2 diabetes mellitus and CHF who presents with shortness of breath and generalized edema. Acute on chronic systolic Congestive heart failure Echocardiogram on 01/12/17 with ejection fraction 45-50% presantine thallium stress test once heart failure is resolved. Continue on IV Diuresis and beta blockers Strict I&O's and daily weights Low-sodium/cardiac diet/fluid restriction Closely monitor electrolytes Cardiology evaluation Diabetes mellitus Accu-Chek before meals and at bedtime Sliding scale insulin/NovoLog ADA carbohydrate consistent diet Acute renal failure vasomotor nephropathy roni/ckd 3 most likely Nephrology consulted Repeat BMP Hypokalemia Replaced Closely monitor electrolytes Hypertensive urgency Continue home antihypertensive medications Closely monitor blood pressure Chronic anemia H&H stable for patient at this point; no blood transfusions needed Closely monitor H&H per Cardiology, Dr. Rich "(1) Volume overload Current Visit: Yes Status: Acute Plan to address problem: Cardiac status is stable, continue medical therapy. Stable cardiac status for discharge. Follow-up in our office in one week. Subjective Date of service: 01/15/17 Interval history: Patient underwent an Persantine thallium stress test, normal perfusion, left ventricular ejection fraction 47%." -Acute hypoxic respiratory failure, poa: try to wean off O2, d/w nurse Andrez. History Interval history: Patient was seen and examined. Follow-up on current diagnosis. Overnight uneventful. Patient denies any chest pain, nausea/vomiting or severe headaches. Imaging, nursing note, chart, labs and old chart reviewed. Discussed with patient. Sob is better but still on o2 Hospitalist Physical - Physical exam Narrative exam: GEN: WDWN, NAD, AWAKE, ALERT, ORIENTATED 3 HEENT: NCAT, EOMI, PERRL, OP Clear NECK: supple, no adenopathy, no thyromegaly, CVS/HEART: RRR, NORMAL S1S2, NO JVD, pulses present bilaterally CHEST/LUNGS: Bilateral Reduced breath sounds, Symmetrical chest expansion, diminished air entry bilaterally GI/Abdomen: soft, NTND, good bowel sounds, no guarding or rebound /Bladder: no suprapubic tenderness, no CVA or paraspinal tenderness EXT/Skin: 3+ pitting bilateral edema MSK: FROM x 4 Neuro: CN 2-12 grossly intact, no new focal deficits Psych: calm - Constitutional Vitals: Temp Pulse Resp BP Pulse Ox 98.9 F 68 18 143/76 94 01/16/17 00:30 01/16/17 09:30 01/16/17 00:30 01/16/17 09:30 01/16/17 08:10 General appearance: Present: no acute distress Results - Labs CBC & Chem 7: 01/12/17 07:11 01/14/17 06:54 Labs: Laboratory Last Values WBC 10.2 K/mm3 (4.5-11.0) 01/12/17 07:11 RBC 3.32 M/mm3 (3.65-5.03) L 01/12/17 07:11 Hgb 9.1 gm/dl (11.8-15.2) L 01/12/17 07:11 Hct 26.7 % (35.5-45.6) L 01/12/17 07:11 MCV 80 fl (84-94) L 01/12/17 07:11 MCH 27 pg (28-32) L 01/12/17 07:11 MCHC 34 % (32-34) 01/12/17 07:11 RDW 17.4 % (13.2-15.2) H 01/12/17 07:11 Plt Count 353 K/mm3 (140-440) 01/12/17 07:11 Add Manual Diff Complete 01/12/17 07:11 Total Counted 100 01/12/17 07:11 Seg Neuts % (Manual) 81.0 % (40.0-70.0) H 01/12/17 07:11 Band Neutrophils % 0 % 01/12/17 07:11 Lymphocytes % (Manual) 14.0 % (13.4-35.0) 01/12/17 07:11 Reactive Lymphs % (Man) 0 % 01/12/17 07:11 Monocytes % (Manual) 5.0 % (0.0-7.3) 01/12/17 07:11 Eosinophils % (Manual) 0 % (0.0-4.3) 01/12/17 07:11 Basophils % (Manual) 0 % (0.0-1.8) 01/12/17 07:11 Metamyelocytes % 0 % 01/12/17 07:11 Myelocytes % 0 % 01/12/17 07:11 Promyelocytes % 0 % 01/12/17 07:11 Blast Cells % 0 % 01/12/17 07:11 Nucleated RBC % Not Reportable 01/12/17 07:11 Seg Neutrophils # Man 8.3 K/mm3 (1.8-7.7) H 01/12/17 07:11 Band Neutrophils # 0.0 K/mm3 01/12/17 07:11 Lymphocytes # (Manual) 1.4 K/mm3 (1.2-5.4) 01/12/17 07:11 Abs React Lymphs (Man) 0.0 K/mm3 01/12/17 07:11 Monocytes # (Manual) 0.5 K/mm3 (0.0-0.8) 01/12/17 07:11 Eosinophils # (Manual) 0.0 K/mm3 (0.0-0.4) 01/12/17 07:11 Basophils # (Manual) 0.0 K/mm3 (0.0-0.1) 01/12/17 07:11 Metamyelocytes # 0.0 K/mm3 01/12/17 07:11 Myelocytes # 0.0 K/mm3 01/12/17 07:11 Promyelocytes # 0.0 K/mm3 01/12/17 07:11 Blast Cells # 0.0 K/mm3 01/12/17 07:11 WBC Morphology Not Reportable 01/12/17 07:11 Hypersegmented Neuts Not Reportable 01/12/17 07:11 Hyposegmented Neuts Not Reportable 01/12/17 07:11 Hypogranular Neuts Not Reportable 01/12/17 07:11 Smudge Cells Not Reportable 01/12/17 07:11 Toxic Granulation Not Reportable 01/12/17 07:11 Toxic Vacuolation Not Reportable 01/12/17 07:11 Dohle Bodies Not Reportable 01/12/17 07:11 Pelger-Huet Anomaly Not Reportable 01/12/17 07:11 Ragini Rods Not Reportable 01/12/17 07:11 Platelet Estimate Not Reportable 01/12/17 07:11 Clumped Platelets Not Reportable 01/12/17 07:11 Plt Clumps, EDTA Not Reportable 01/12/17 07:11 Large Platelets Not Reportable 01/12/17 07:11 Giant Platelets Not Reportable 01/12/17 07:11 Platelet Satelliting Not Reportable 01/12/17 07:11 Plt Morphology Comment Not Reportable 01/12/17 07:11 RBC Morphology Not Reportable 01/12/17 07:11 Dimorphic RBCs Not Reportable 01/12/17 07:11 Polychromasia Not Reportable 01/12/17 07:11 Hypochromasia 1+ 01/12/17 07:11 Poikilocytosis 1+ 01/12/17 07:11 Anisocytosis 1+ 01/12/17 07:11 Microcytosis Not Reportable 01/12/17 07:11 Macrocytosis Not Reportable 01/12/17 07:11 Spherocytes Not Reportable 01/12/17 07:11 Pappenheimer Bodies Not Reportable 01/12/17 07:11 Sickle Cells Not Reportable 01/12/17 07:11 Target Cells Few 01/12/17 07:11 Tear Drop Cells Not Reportable 01/12/17 07:11 Ovalocytes Not Reportable 01/12/17 07:11 Helmet Cells Not Reportable 01/12/17 07:11 Archuleta-Elsberry Bodies Not Reportable 01/12/17 07:11 [place] Rings Not Reportable 01/12/17 07:11 Elena Cells Not Reportable 01/12/17 07:11 Bite Cells Not Reportable 01/12/17 07:11 Crenated Cell Not Reportable 01/12/17 07:11 Elliptocytes Not Reportable 01/12/17 07:11 Acanthocytes (Spur) Not Reportable 01/12/17 07:11 Rouleaux Not Reportable 01/12/17 07:11 Hemoglobin C Crystals Not Reportable 01/12/17 07:11 Schistocytes Few 01/12/17 07:11 Malaria parasites Not Reportable 01/12/17 07:11 Scott Bodies Not Reportable 01/12/17 07:11 Hem Pathologist Commnt No 01/12/17 07:11 Sodium 136 mmol/L (137-145) L 01/14/17 06:54 Potassium 4.1 mmol/L (3.6-5.0) D 01/14/17 06:54 Chloride 101.3 mmol/L (98-107) 01/14/17 06:54 Carbon Dioxide 19 mmol/L (22-30) L 01/14/17 06:54 Anion Gap 20 mmol/L 01/14/17 06:54 BUN 14 mg/dL (9-20) 01/14/17 06:54 Creatinine 1.5 mg/dL (0.8-1.5) 01/14/17 06:54 Estimated GFR 56 ml/min 01/14/17 06:54 BUN/Creatinine Ratio 9 % 01/14/17 06:54 Glucose 100 mg/dL (75-100) 01/14/17 06:54 POC Glucose 122 (70-105) H 01/16/17 08:56 Calcium 8.3 mg/dL (8.4-10.2) L 01/14/17 06:54 Total Creatine Kinase 138 units/L (55-170) 01/12/17 07:11 CK-MB (CK-2) 1.4 ng/mL (0.0-4.0) 01/12/17 07:11 CK-MB (CK-2) Rel Index 1.0 (0-4) 01/12/17 07:11 Troponin T 0.022 ng/mL (0.00-0.029) 01/12/17 07:11 NT-Pro-B Natriuret Pep 83301 pg/mL (0-900) H 01/11/17 18:25 Urine Color Yellow (Yellow) 01/13/17 06:40 Urine Turbidity Clear (Clear) 01/13/17 06:40 Urine pH 6.0 (5.0-7.0) 01/13/17 06:40 Ur Specific [place] 1.009 (1.003-1.030) 01/13/17 06:40 Urine Protein 30 mg/dl mg/dL (Negative) 01/13/17 06:40 Urine Glucose (UA) Neg mg/dL (Negative) 01/13/17 06:40 Urine Ketones Neg mg/dL (Negative) 01/13/17 06:40 Urine Blood Neg (Negative) 01/13/17 06:40 Urine Nitrite Neg (Negative) 01/13/17 06:40 Urine Bilirubin Neg (Negative) 01/13/17 06:40 Urine Urobilinogen < 2.0 mg/dL (<2.0) 01/13/17 06:40 Ur Leukocyte Esterase Neg (Negative) 01/13/17 06:40 Urine WBC (Auto) < 1.0 /HPF (0.0-6.0) 01/13/17 06:40 Urine RBC (Auto) 1.0 /HPF (0.0-6.0) 01/13/17 06:40 U Epithel Cells (Auto) < 1.0 /HPF (0-13.0) 01/13/17 06:40 Urine Creatinine 54.3 mg/dL (0.1-20.0) H 01/13/17 06:40 Protein/Creatinin Ratio 1.25 01/13/17 06:40 Urine Total Protein 68 mg/dL (5-11.8) H 01/13/17 06:40
--- NOTE | 2017-01-16 15:20 | Discharge Summary ---
Providers - Providers Date of Admission: 01/11/17 22:58 Date of discharge: 01/16/17 Attending physician: KOSTA MAS 01/12/17 14:11 Consult to Physician [CONS] Routine Consulting Provider: VENESSA LAROSE Reason For Exam: ARF Place consult to:: yes Notified:: yes Primary care physician: JACOBY MARISCAL Hospitalization Condition: Stable Hospital course: Patient is 66-year-old man with history of hypertension, type 2 diabetes mellitus and CHF who presents with shortness of breath and generalized edema. Acute on chronic systolic Congestive heart failure Echocardiogram on 01/12/17 with ejection fraction 45-50% presantine thallium stress test once heart failure is resolved. Continue on IV Diuresis and beta blockers Strict I&O's and daily weights Low-sodium/cardiac diet/fluid restriction Closely monitor electrolytes Cardiology evaluation Diabetes mellitus Accu-Chek before meals and at bedtime Sliding scale insulin/NovoLog ADA carbohydrate consistent diet Acute renal failure vasomotor nephropathy roni/ckd 3 most likely Nephrology consulted Repeat BMP Hypokalemia Replaced Closely monitor electrolytes Hypertensive urgency Continue home antihypertensive medications Closely monitor blood pressure Chronic anemia H&H stable for patient at this point; no blood transfusions needed Closely monitor H&H per Cardiology, Dr. Rich "(1) Volume overload Current Visit: Yes Status: Acute Plan to address problem: Cardiac status is stable, continue medical therapy. Stable cardiac status for discharge. Follow-up in our office in one week. Subjective Date of service: 01/15/17 Interval history: Patient underwent an Persantine thallium stress test, normal perfusion, left ventricular ejection fraction 47%." -Acute hypoxic respiratory failure, poa: try to wean off O2, d/w nurse Andrez. Disposition: DC-01 TO HOME OR SELFCARE Time spent for discharge: 36 minutes Core Measure Documentation - Palliative Care Palliative Care/ Comfort Measures: Not Applicable - Core Measures Any of the following diagnoses?: heart failure - VTE Discharge Requirements Deep Vein Thrombosis/Pulmonary Embolism Present on Admission: No Has pt received <5 days of overlap therapy or INR<2.0: No Anticoagulant overlap therapy prescribed at discharge: No Contraindication No Overlap Therapy order at DC: Not Indicated - Heart Failure Discharge Requirements LAKEISHA/ARB for LVSD if EF <40%: Yes Beta pradeep at discharge: Yes Exam - Physical Exam Narrative exam: GEN: WDWN, NAD, AWAKE, ALERT, ORIENTATED 3 HEENT: NCAT, EOMI, PERRL, OP Clear NECK: supple, no adenopathy, no thyromegaly, CVS/HEART: RRR, NORMAL S1S2, NO JVD, pulses present bilaterally CHEST/LUNGS: Bilateral Reduced breath sounds, Symmetrical chest expansion, diminished air entry bilaterally GI/Abdomen: soft, NTND, good bowel sounds, no guarding or rebound /Bladder: no suprapubic tenderness, no CVA or paraspinal tenderness EXT/Skin: 3+ pitting bilateral edema MSK: FROM x 4 Neuro: CN 2-12 grossly intact, no new focal deficits Psych: calm - Constitutional Vitals: Temp Pulse Resp BP Pulse Ox 98.9 F 68 18 143/76 94 01/16/17 00:30 01/16/17 09:30 01/16/17 00:30 01/16/17 09:30 01/16/17 08:10 Plan Activity: other (no strenous activity until cleared by cardiology) Diet: low salt Follow up with: PRIMARY CARE, [Referring] - 3-5 Days Prescriptions: Furosemide [Lasix TAB] 40 mg PO BID #60 tablet Lisinopril [Zestril TAB] 2.5 mg PO QDAY #30 tablet Metoprolol [Lopressor TAB] 25 mg PO BID #60 tablet
== END 2017-01-16 18:10 | disposition home or self-care (01) | DRG 682 ==
LOC: ED 17:50 → 4A 22:58
PROVIDERS: ADMIT Internal Medicine; ATTEND Internal Medicine
PROC: 3E0234Z Introduction of Serum, Toxoid and Vaccine into Muscle, Percutaneous Approach (ICD-10-PCS; principal; 2017-01-12)
DX: N17.0 Acute kidney failure with tubular necrosis (principal); I50.23 Acute on chronic systolic (congestive) heart failure; J96.01 Acute respiratory failure with hypoxia; I13.0 Hypertensive heart and chronic kidney disease with heart failure and stage 1 through stage 4 chronic kidney disease, or unspecified chronic kidney disease; E87.6 Hypokalemia; D64.9 Anemia, unspecified; I27.20 Pulmonary hypertension, unspecified; N18.9 Chronic kidney disease, unspecified; E11.22 Type 2 diabetes mellitus with diabetic chronic kidney disease; E11.21 Type 2 diabetes mellitus with diabetic nephropathy; I16.0 Hypertensive urgency; Z23 Encounter for immunization; Z86.73 Personal history of transient ischemic attack (TIA), and cerebral infarction without residual deficits; Z82.49 Family history of ischemic heart disease and other diseases of the circulatory system; Z86.711 Personal history of pulmonary embolism; Z86.718 Personal history of other venous thrombosis and embolism
CPT/HCPCS: 36415; 71020; 76770; 78452; 80048; 81001; 82550; 82553; 82570; 82962; 83880; 84156; 84484; 85007; 85025; 90471; 90686; 93005; 93010; 93017; 93306; 94760; 96374; 96375; 99285; A9502; G0008; J1650; J1815; J1940; J2785

== ENCOUNTER 2017-04-22 18:44 | Inpatient (IN) | payer MEDICARE ==
[2017-04-22 19:42] LABS: Basophils # (Auto) 0.1 K/mm3 (0.0-0.1); Basophils % (Auto) 1.1 % (0.0-1.8); Eosinophils # (Auto) 0.2 K/mm3 (0.0-0.4); Eosinophils % (Auto) 3.4 % (0.0-4.3); Hematocrit 27.4 % (35.5-45.6); Hemoglobin 9.2 gm/dl (11.8-15.2); Lymphocytes # (Auto) 1.2 K/mm3 (1.2-5.4); Lymphocytes % (Auto) 23.6 % (13.4-35.0); Mean Corpuscular HGB Conc 33 % (32-34); Mean Corpuscular Hemoglobin 26 pg (28-32); Mean Corpuscular Volume 79 fl (84-94); Monocytes # (Auto) 0.8 K/mm3 (0.0-0.8); Monocytes % (Auto) 15.6 % (0.0-7.3); Platelet Count 317 K/mm3 (140-440); Red Blood Count 3.48 M/mm3 (3.65-5.03); Red Cell Distribution Width 18.9 % (13.2-15.2)
[2017-04-22 20:15] LABS: Calcium 8.4 mg/dL (8.4-10.2)
[2017-04-22] MEDS ORDERED: LASIX IV ONE (20:22)
--- NOTE | 2017-04-22 20:28 | Emergency Department Report ---
ED Shortness of Breath HPI - General Chief Complaint: Dyspnea/Respdistress Stated Complaint: CORIN Time Seen by Provider: 04/22/17 20:10 Source: patient Mode of arrival: Ambulatory Limitations: No Limitations - History of Present Illness MD Complaint: shortness of breath Onset/Timin (weeks) -: Gradual Radiation: other (none) Severity: moderate, severe Consistency: intermittent Improves With: rest Worsens With: exertion Known History Of: congestive heart failure Associated Symptoms: cough, lower abdominal swelling, other (lower extremity edema) Treatments Prior to Arrival: none - Related Data Home Oxygen Therapy: No Home Medications Medication Instructions Recorded Confirmed Last Taken Atorvastatin Calcium [Lipitor] 10 mg PO DAILY 01/13/17 04/22/17 Unknown Previous Rx's Medication Instructions Recorded Last Taken Type Acetaminophen [Acetaminophen TAB] 650 mg PO Q4H PRN tablet 01/16/17 Unknown Rx Aspirin EC [Aspirin Enteric Coated 81 mg PO QDAY tablet 01/16/17 Unknown Rx TAB] Furosemide [Lasix TAB] 40 mg PO BID #60 tablet 01/16/17 Unknown Rx Lisinopril [Zestril TAB] 2.5 mg PO QDAY #30 tablet 01/16/17 Unknown Rx Metoprolol [Lopressor TAB] 25 mg PO BID #60 tablet 01/16/17 Unknown Rx Allergies Allergy/AdvReac Type Severity Reaction Status Date / Time No Known Allergies Allergy Unverified 01/11/17 18:03 ED Review of Systems ROS: Stated complaint: CORIN Other details as noted in HPI Comment: All other systems reviewed and negative ED Past Medical Hx - Past Medical History Previous Medical History?: Yes Hx Hypertension: Yes Hx CVA: Yes Hx Congestive Heart Failure: Yes Hx Diabetes: Yes Hx Deep Vein Thrombosis: Yes Hx Asthma: No Hx COPD: No - Surgical History Past Surgical History?: Yes Additional Surgical History: fei cataract surgery - Social History Smoking Status: Never Smoker Substance Use Type: Prescribed - Medications Home Medications: Home Medications Medication Instructions Recorded Confirmed Last Taken Type Atorvastatin Calcium [Lipitor] 10 mg PO DAILY 01/13/17 04/22/17 Unknown History Acetaminophen [Acetaminophen TAB] 650 mg PO Q4H PRN tablet 01/16/17 04/22/17 Unknown Rx Aspirin EC [Aspirin Enteric Coated 81 mg PO QDAY tablet 01/16/17 04/22/17 Unknown Rx TAB] Furosemide [Lasix TAB] 40 mg PO BID #60 tablet 01/16/17 04/22/17 Unknown Rx Lisinopril [Zestril TAB] 2.5 mg PO QDAY #30 tablet 01/16/17 04/22/17 Unknown Rx Metoprolol [Lopressor TAB] 25 mg PO BID #60 tablet 01/16/17 04/22/17 Unknown Rx ED Physical Exam - General Limitations: No Limitations General appearance: alert, in no apparent distress - Head Head exam: Present: atraumatic, normocephalic - Eye Eye exam: Present: normal appearance - ENT ENT exam: Present: normal orophraynx, mucous membranes moist - Neck Neck exam: Present: normal inspection - Respiratory Respiratory exam: Present: normal lung sounds bilaterally. Absent: respiratory distress - Cardiovascular Cardiovascular Exam: Present: regular rate, normal rhythm. Absent: systolic murmur, diastolic murmur, rubs, gallop - GI/Abdominal GI/Abdominal exam: Present: soft, distended, normal bowel sounds - Extremities Exam Extremities exam: Present: full ROM, pedal edema (lower extremities and right hand). Absent: tenderness - Back Exam Back exam: Present: normal inspection - Neurological Exam Neurological exam: Present: alert, oriented X3 - Psychiatric Psychiatric exam: Present: normal affect, normal mood - Skin Skin exam: Present: warm, dry, intact, normal color. Absent: rash ED Course Vital Signs 04/22/17 04/22/17 04/22/17 18:59 20:47 21:00 Temperature 98.5 F 98.1 F Pulse Rate 74 68 67 Respiratory 18 19 18 Rate Blood Pressure 156/92 158/90 Blood Pressure 151/85 [Left] O2 Sat by Pulse 100 98 95 Oximetry 04/22/17 04/22/17 22:00 23:00 Temperature Pulse Rate 66 63 Respiratory 17 20 Rate Blood Pressure 158/90 159/96 Blood Pressure [Left] O2 Sat by Pulse 96 94 Oximetry - Reevaluation(s) Reevaluation #1: 04/22/17 21:43 Patient was ambulated and his oxygen level did drop to 95% ED Medical Decision Making - Lab Data Result diagrams: 04/22/17 19:28 04/22/17 19:28 - EKG Data -: EKG Interpreted by Nv Rate: normal (paced rhythm) - Radiology Data Radiology results: image reviewed (pulmonary edema) - Medical Decision Making I spoke to Dr. Kessler the hospitalist and she has accepted the patient for admission Critical care attestation.: If time is entered above; I have spent that time in minutes in the direct care of this critically ill patient, excluding procedure time. ED Disposition Clinical Impression: Acute exacerbation of congestive heart failure Disposition: OP ADMIT IP TO THIS HOSP Is pt being admited?: Yes Does the pt Need Aspirin: No Condition: Stable Time of Disposition: 21:00
--- NOTE | 2017-04-22 21:40 | XRay Report ---
FINAL REPORT EXAM: XR CHEST ROUTINE 2V HISTORY: Shortness of breath TECHNIQUE: Two views of the chest Comparison: 01/11/2017 FINDINGS: Enlarged cardiac silhouette. Pulmonary vascular congestion with blunting of the left costophrenic sulcus, improved from the previous. Mild pulmonary vascular congestion. Posterior costophrenic angles are mildly obscured. IMPRESSION: Enlarged cardiac silhouette compatible with cardiomegaly versus pericardial effusion. Pulmonary vascular congestion. Very mild left basal atelectasis/consolidation improved from the previous. Slight blunting of the posterior costophrenic sulci compatible with basal atelectasis. Trace fluid in the fissures.
--- NOTE | 2017-04-22 22:08 | History and Physical Report ---
History of Present Illness Date of examination: 04/22/17 History of present illness: 47-year-old man withl history of CHF, diabetes, hypertension, comes emergency room complaining of shortness of breath, increasing lower extremity edema dyspnea on exertion, decreased exercise tolerance . Patient stated that his Lasix was changed to a different diuretic, this was started on Thursday. States he is compliant with medications and diet Review Of Systems: Constitutional: no weight loss Ears, eyes, nose, mouth and throat: no nasal congestion, no nasal discharge, no sinus pressure, blurry vision, diplopia Neck: No neck pain or rigidity. Cardiovascular: no chest pain, orthopnea, palpitations Respiratory: No cough Gastrointestinal: No abdominal pain, hematochezia Genitourinary : no dysuria, frequency , hematuria Musculoskeletal: no muscle ache Integumentary: no rash, no pruritis Neurological: no parathesias, focal weakness Endocrine: no cold or heat intolerance, no polyuria or polydipsia Hematologic/Lymphatic: no easy bruising, no easy bleeding, no gland swelling Allergic/Immunologic: no urticaria, no angioedema. PAST MEDICAL HISTORY: CHF, diabetes, hypertension, history of CVA PAST SURGICAL HISTORY: none SOCIAL HISTORY: No alcohol and tobacco, no drugs FAMILY HISTORY: Hypertension Medications and Allergies Allergies Allergy/AdvReac Type Severity Reaction Status Date / Time No Known Allergies Allergy Unverified 01/11/17 18:03 Home Medications Medication Instructions Recorded Confirmed Last Taken Type Atorvastatin Calcium [Lipitor] 10 mg PO DAILY 01/13/17 04/22/17 Unknown History Acetaminophen [Acetaminophen TAB] 650 mg PO Q4H PRN tablet 01/16/17 04/22/17 Unknown Rx Aspirin EC [Aspirin Enteric Coated 81 mg PO QDAY tablet 01/16/17 04/22/17 Unknown Rx TAB] Furosemide [Lasix TAB] 40 mg PO BID #60 tablet 01/16/17 04/22/17 Unknown Rx Lisinopril [Zestril TAB] 2.5 mg PO QDAY #30 tablet 01/16/17 04/22/17 Unknown Rx Metoprolol [Lopressor TAB] 25 mg PO BID #60 tablet 01/16/17 04/22/17 Unknown Rx Exam - Physical Exam Narrative exam: Gen. appearance: Patient lying in bed, no apparent distress HEENT: Normocephalic, atraumatic, pupils equally round and reactive to light, extraocular movement intact, and no sclericterus,. No JVD or thyromegaly or nodule,neck supple, no carotid bruit ,mucous membranes moist, no exudate or erythema Heart: S1, S2, regular rate and rhythm Lungs: Crackles bilaterally, breathing comfortable Abdomen: Positive bowel sounds, nontender, nondistended, no organomegaly Extremity: +edema, no cyanosis, clubbing Skin: No rash, nodules, warm, dry Neuro: Oriented 3, cranial nerves II-12 intact, speech is fluent, motor and sensory intact - Constitutional Vitals: Temp Pulse Resp BP Pulse Ox 98.1 F 68 19 151/85 98 04/22/17 20:47 04/22/17 20:47 04/22/17 20:47 04/22/17 20:47 04/22/17 20:47 Results - Labs CBC & Chem 7: 04/22/17 19:28 04/22/17 19:28 Labs: Abnormal lab results 04/22/17 04/22/17 04/22/17 Range/Units 19:28 19:28 19:28 RBC 3.48 L (3.65-5.03) M/mm3 Hgb 9.2 L (11.8-15.2) gm/dl Hct 27.4 L (35.5-45.6) % MCV 79 L (84-94) fl MCH 26 L (28-32) pg RDW 18.9 H (13.2-15.2) % [place] % (Auto) 15.6 H (0.0-7.3) % BUN 23 H (9-20) mg/dL Creatinine 2.1 H (0.8-1.5) mg/dL Glucose 129 H (75-100) mg/dL NT-Pro-B Natriuret Pep 98574 H (0-900) pg/mL - Imaging and Cardiology EKG: image reviewed Chest x-ray: image reviewed Assessment and Plan Assessment Acute onset CHF, probably systolic dysfunction Diabetes Hypertension Chronic kidney disease Plan Admit to medicine Diuresed with IV Lasix, Start Beta pradeep, AceI ,aspirin Check cardiac enzymes, consult cardiology Monitor I's and O's, daily weights Check fingersticks and start insulin sliding scale DVT prophylaxis
[2017-04-22] MEDS ORDERED: SODIUM CHLORIDE FLUSH SYRINGE 10 ML IV PRN (22:29)
[2017-04-22] MEDS ORDERED: D50W (25GM) Syringe IV PRN (22:29)
[2017-04-22] MEDS ORDERED: TYLENOL PO PRN (22:29)
[2017-04-22] MEDS ORDERED: ZOFRAN IV PRN (22:29)
[2017-04-23] MEDS: LASIX IV SCH ×2 (05:53→18:50)
[2017-04-23 06:53] LABS: Basophils % (Auto) 0.9 % (0.0-1.8); Eosinophils # (Auto) 0.1 K/mm3 (0.0-0.4); Hematocrit 27.7 % (35.5-45.6); Lymphocytes # (Auto) 1.3 K/mm3 (1.2-5.4); Lymphocytes % (Auto) 26.9 % (13.4-35.0); Mean Corpuscular HGB Conc 33 % (32-34); Mean Corpuscular Volume 79 fl (84-94); Monocytes # (Auto) 0.7 K/mm3 (0.0-0.8); Monocytes % (Auto) 15.5 % (0.0-7.3); Platelet Count 343 K/mm3 (140-440); Red Blood Count 3.49 M/mm3 (3.65-5.03); Red Cell Distribution Width 18.7 % (13.2-15.2)
[2017-04-23 06:58] LABS: Mean Corpuscular Hemoglobin 26 pg (28-32)
[2017-04-23 07:06] LABS: Calcium 8.4 mg/dL (8.4-10.2)
[2017-04-23] MEDS: HumuLIN R SUB-Q SCH ×4 (08:15→21:58)
--- NOTE | 2017-04-23 10:39 | Progress Note ---
<JAIR MALONE - Last Filed: 04/23/17 15:51> Assessment and Plan Assessment and plan: 47-year-old man withl history of CHF, diabetes, hypertension, comes emergency room complaining of shortness of breath, increasing lower extremity edema dyspnea on exertion, decreased exercise tolerance . Patient stated that his Lasix was changed to a different diuretic, this was started on Thursday. States he is compliant with medications and diet Acute on chronic Congestive heart failure Echocardiogram ordered Continue on IV Diuresis and beta blockers Strict I&O's and daily weights Low-sodium/cardiac diet/fluid restriction Closely monitor electrolytes Cardiology evaluation Diabetes mellitus Accu-Chek before meals and at bedtime Sliding scale insulin ADA carbohydrate consistent diet Acute renal failure/ vasomotor nephropathy Nephrology consulted Repeat BMP Hypertensive Continue home antihypertensive medications Closely monitor blood pressure Chronic anemia H&H stable for patient at this point; no blood transfusions needed Closely monitor H&H History Interval history: Patient seen and examined. He denies chest pain, shortness of breath. Labs, chart, and nursing notes reviewed Hospitalist Physical - Constitutional Vitals: Temp Pulse Resp BP Pulse Ox 98.3 F 69 18 152/89 97 04/23/17 07:19 04/23/17 07:19 04/23/17 07:19 04/23/17 07:19 04/23/17 07:19 General appearance: Present: no acute distress, well-nourished - EENT Eyes: Present: PERRL, EOM intact ENT: hearing intact, clear oral mucosa - Neck Neck: Present: supple, normal ROM - Respiratory Respiratory effort: normal Respiratory: bilateral: CTA - Cardiovascular Rhythm: regular Heart Sounds: Present: S1 & S2 - Extremities Extremities: no ischemia, pulses intact, No edema - Abdominal General gastrointestinal: soft, non-tender, non-distended - Integumentary Integumentary: Present: clear, warm, dry - Psychiatric Psychiatric: appropriate mood/affect, intact judgment & insight, cooperative - Neurologic Neurologic: CNII-XII intact, moves all extremities - Allied Health Allied health notes reviewed: nursing Results - Labs CBC & Chem 7: 04/23/17 06:12 04/23/17 06:12 Labs: Laboratory Last Values WBC 4.7 K/mm3 (4.5-11.0) 04/23/17 06:12 RBC 3.49 M/mm3 (3.65-5.03) L 04/23/17 06:12 Hgb 9.0 gm/dl (11.8-15.2) L 04/23/17 06:12 Hct 27.7 % (35.5-45.6) L 04/23/17 06:12 MCV 79 fl (84-94) L 04/23/17 06:12 MCH 26 pg (28-32) L 04/23/17 06:12 MCHC 33 % (32-34) 04/23/17 06:12 RDW 18.7 % (13.2-15.2) H 04/23/17 06:12 Plt Count 343 K/mm3 (140-440) 04/23/17 06:12 Lymph % (Auto) 26.9 % (13.4-35.0) 04/23/17 06:12 [place]manuel % (Auto) 15.5 % (0.0-7.3) H 04/23/17 06:12 Eos % (Auto) 3.0 % (0.0-4.3) 04/23/17 06:12 Baso % (Auto) 0.9 % (0.0-1.8) 04/23/17 06:12 Lymph # 1.3 K/mm3 (1.2-5.4) 04/23/17 06:12 Emanuel # 0.7 K/mm3 (0.0-0.8) 04/23/17 06:12 Eos # 0.1 K/mm3 (0.0-0.4) 04/23/17 06:12 Baso # 0.0 K/mm3 (0.0-0.1) 04/23/17 06:12 Seg Neutrophils % 53.7 % (40.0-70.0) 04/23/17 06:12 Seg Neutrophils # 2.5 K/mm3 (1.8-7.7) 04/23/17 06:12 Sodium 143 mmol/L (137-145) 04/23/17 06:12 Potassium 3.7 mmol/L (3.6-5.0) 04/23/17 06:12 Chloride 106.2 mmol/L (98-107) 04/23/17 06:12 Carbon Dioxide 23 mmol/L (22-30) 03/15/18 06:12 Anion Gap 18 mmol/L 04/23/17 06:12 BUN 22 mg/dL (9-20) H 04/23/17 06:12 Creatinine 2.0 mg/dL (0.8-1.5) H 04/23/17 06:12 Estimated GFR 40 ml/min 04/23/17 06:12 BUN/Creatinine Ratio 11 % 04/23/17 06:12 Glucose 118 mg/dL (75-100) H 04/23/17 06:12 Calcium 8.4 mg/dL (8.4-10.2) 04/23/17 06:12 Troponin T 0.024 ng/mL (0.00-0.029) 04/22/17 19:28 NT-Pro-B Natriuret Pep 11053 pg/mL (0-900) H 04/22/17 19:28 <JOSESITO SOUZA - Last Filed: 04/23/17 18:46> History Interval history: I saw and evaluated the patient. I agree with the findings and the plan of care as documented in the Nurse Practitioner's~note, with the following corrections and additions. The patient's left ventricular ejection fraction in January was 45-50% Stress test was negative at that time We'll optimize medications, follow cardiology evaluation Closely monitor renal function, avoid nephrotoxins Agree with the current management Plan of care reviewed with the patient and his nurse Hospitalist Physical - Constitutional Vitals: Temp Pulse Resp BP Pulse Ox 98.3 F 71 18 152/89 97 04/23/17 07:19 04/23/17 16:57 04/23/17 07:19 04/23/17 16:57 04/23/17 07:19 Results - Labs CBC & Chem 7: 04/23/17 06:12 04/23/17 06:12 Labs: Laboratory Last Values WBC 4.7 K/mm3 (4.5-11.0) 04/23/17 06:12 RBC 3.49 M/mm3 (3.65-5.03) L 04/23/17 06:12 Hgb 9.0 gm/dl (11.8-15.2) L 04/23/17 06:12 Hct 27.7 % (35.5-45.6) L 04/23/17 06:12 MCV 79 fl (84-94) L 04/23/17 06:12 MCH 26 pg (28-32) L 04/23/17 06:12 MCHC 33 % (32-34) 04/23/17 06:12 RDW 18.7 % (13.2-15.2) H 04/23/17 06:12 Plt Count 343 K/mm3 (140-440) 04/23/17 06:12 Lymph % (Auto) 26.9 % (13.4-35.0) 04/23/17 06:12 Emanuel % (Auto) 15.5 % (0.0-7.3) H 04/23/17 06:12 Eos % (Auto) 3.0 % (0.0-4.3) 04/23/17 06:12 Baso % (Auto) 0.9 % (0.0-1.8) 04/23/17 06:12 Lymph # 1.3 K/mm3 (1.2-5.4) 04/23/17 06:12 Emanuel # 0.7 K/mm3 (0.0-0.8) 04/23/17 06:12 Eos # 0.1 K/mm3 (0.0-0.4) 04/23/17 06:12 Baso # 0.0 K/mm3 (0.0-0.1) 04/23/17 06:12 Seg Neutrophils % 53.7 % (40.0-70.0) 04/23/17 06:12 Seg Neutrophils # 2.5 K/mm3 (1.8-7.7) 04/23/17 06:12 Sodium 143 mmol/L (137-145) 04/23/17 06:12 Potassium 3.7 mmol/L (3.6-5.0) 04/23/17 06:12 Chloride 106.2 mmol/L (98-107) 04/23/17 06:12 Carbon Dioxide 23 mmol/L (22-30) 04/23/17 06:12 Anion Gap 18 mmol/L 04/23/17 06:12 BUN 22 mg/dL (9-20) H 04/23/17 06:12 Creatinine 2.0 mg/dL (0.8-1.5) H 04/23/17 06:12 Estimated GFR 40 ml/min 04/23/17 06:12 BUN/Creatinine Ratio 11 % 04/23/17 06:12 Glucose 118 mg/dL (75-100) H 04/23/17 06:12 Calcium 8.4 mg/dL (8.4-10.2) 04/23/17 06:12 Troponin T 0.024 ng/mL (0.00-0.029) 04/22/17 19:28 NT-Pro-B Natriuret Pep 43900 pg/mL (0-900) H 04/22/17 19:28
[2017-04-23] MEDS: HALFPRIN EC PO SCH (16:56)
[2017-04-23] MEDS: LOPRESSOR PO SCH ×2 (16:57→21:59)
[2017-04-23] MEDS: LOVENOX SUB-Q SCH (16:58)
[2017-04-23] MEDS: SODIUM CHLORIDE FLUSH SYRINGE 10 ML IV SCH ×2 (16:58→21:59)
[2017-04-23] MEDS: ZESTRIL PO SCH (17:00)
--- NOTE | 2017-04-23 18:56 | Event Note ---
patient shows up on my list consultation requested for renal failure, chart reviewed We'll order labs ultrasound of gram and follow up in the morning
[2017-04-24 05:51] LABS: Creatinine,Urine 63.2 mg/dL (0.1-20.0)
[2017-04-24 06:00] LABS: Hyaline Casts,Urine 3 /LPF; WBC,Urine < 1.0 /HPF (0.0-6.0)
[2017-04-24] MEDS: LASIX IV SCH ×2 (06:39→17:42)
[2017-04-24 07:36] LABS: Calcium 8.2 mg/dL (8.4-10.2)
[2017-04-24] MEDS: HumuLIN R SUB-Q SCH ×4 (08:18→23:09)
--- NOTE | 2017-04-24 08:59 | Ultrasound Report ---
ULTRASOUND RENAL BILATERAL HISTORY: Renal failure. TECHNIQUE: transabdominal ultrasound with color Doppler interrogation. COMPARISON: 01/13/17. FINDINGS: The right kidney measures 10.6 x 5.7 x 6.2cm. Right renal cortex: 1.2cm. The left kidney measures 9.6 x 3.8 x 4.6cm. Left renal cortex: 1.1cm. The kidneys are normal size, contour and position. There is increased renal parenchymal echotexture bilaterally. Corticomedullary differentiation is preserved. No evidence for cystic disease, mass, nephrolithiasis, hydronephrosis or perinephric fluid. The views of the bladder and the region of the ureters appear normal. IMPRESSION: Renal parenchymal disease. No change since 01/25.
[2017-04-24] MEDS: ZESTRIL PO SCH (09:41)
[2017-04-24] MEDS: HALFPRIN EC PO SCH (09:42)
[2017-04-24] MEDS: LOPRESSOR PO SCH ×2 (09:42→22:11)
[2017-04-24] MEDS: LOVENOX SUB-Q SCH (09:43)
[2017-04-24] MEDS: SODIUM CHLORIDE FLUSH SYRINGE 10 ML IV SCH ×2 (09:43→22:12)
--- NOTE | 2017-04-24 12:09 | Progress Note ---
Assessment and Plan Acute diastolic heart failure ejection fraction 45-50% on echocardiogram 01/2017. normal persantine thallium stress test 01/2017. Acute renal failure Continue medical therapy for heart failure with preserved ejection fraction. Subjective Date of service: 04/24/17 Interval history: Patient reports he is feeling better. He denies shortness of breath and chest pain. Objective Vital Signs Temp Pulse Resp BP Pulse Ox 04/24/17 11:25 99.2 F 71 18 157/93 94 04/24/17 09:42 74 159/87 04/24/17 09:41 74 159/87 04/24/17 07:30 99.9 F H 74 18 159/87 99 04/24/17 05:12 98.0 F 96 H 18 154/65 99 04/24/17 05:07 99.2 F 77 18 146/77 90 04/24/17 00:07 99.0 F 78 18 151/90 95 04/23/17 23:06 97 04/23/17 20:35 99.2 F 71 18 152/91 96 04/23/17 19:15 71 04/23/17 18:33 98.5 F 71 18 144/86 100 04/23/17 16:57 71 152/89 04/23/17 13:47 98.5 F 71 18 155/91 98 - Physical Examination General: No Apparent Distress HEENT: Positive: PERRL Cardiac: Positive: Reg Rate and Rhythm - Labs and Meds Comprehensive Metabolic Panel 04/24/17 Range/Units 05:45 Sodium 144 (137-145) mmol/L Potassium 3.7 (3.6-5.0) mmol/L Chloride 106.8 (98-107) mmol/L Carbon Dioxide 24 (22-30) mmol/L BUN 23 H (9-20) mg/dL Creatinine 2.2 H (0.8-1.5) mg/dL Glucose 103 H (75-100) mg/dL Calcium 8.2 L (8.4-10.2) mg/dL - Imaging and Cardiology EKG: image reviewed
--- NOTE | 2017-04-24 15:36 | Consultation ---
History of Present Illness - Reason for Consult Consult date: 04/24/17 acute renal failure, chronic renal failure Requesting physician: JAIR MALONE - History of Present Illness This is a 67 yo AAM with past medical history of Hypertension, CKD stagee 3, chroinc diastolic HF, diabetes, who presented to the [facility] ER, after presenting with shortness of breath, increasing lower extremity edema dyspnea on exertion , decreased exercise tolerance. As per pt, his Lasix was changed to a different diuretic, this was started on Thursday, however no significant improvement of above symptoms noted. CXR showed evidence of pulmonary vascular congestion, pt was initiated on IV lasix here with significantly improved volume status. Labs showed elevated Cr at 2 -2.2mg/dl range from his baseline Cr around 1.6mg/dl. Renal consult requested for management of FLACO on CKD. Past History Past Medical History: diabetes, heart failure, hypertension, renal failure Past Surgical History: No surgical history Social history: denies: smoking, alcohol abuse, prescription drug abuse, IV drug use Family history: hypertension Medications and Allergies Allergies Allergy/AdvReac Type Severity Reaction Status Date / Time No Known Allergies Allergy Unverified 01/11/17 18:03 Home Medications Medication Instructions Recorded Confirmed Last Taken Type Atorvastatin Calcium [Lipitor] 10 mg PO DAILY 01/13/17 04/22/17 Unknown History Acetaminophen [Acetaminophen TAB] 650 mg PO Q4H PRN tablet 01/16/17 04/22/17 Unknown Rx Aspirin EC [Aspirin Enteric Coated 81 mg PO QDAY tablet 01/16/17 04/22/17 Unknown Rx TAB] Furosemide [Lasix TAB] 40 mg PO BID #60 tablet 01/16/17 04/22/17 Unknown Rx Lisinopril [Zestril TAB] 2.5 mg PO QDAY #30 tablet 01/16/17 04/22/17 Unknown Rx Metoprolol [Lopressor TAB] 25 mg PO BID #60 tablet 01/16/17 04/22/17 Unknown Rx Active Meds: Active Medications Acetaminophen (Tylenol) 650 mg PO Q4H PRN PRN Reason: Pain MILD(1-3)/Fever >100.5/LIND Aspirin (Halfprin Ec) 81 mg PO QDAY [facility] Last Admin: 04/24/17 09:42 Dose: 81 mg Atorvastatin Calcium (Lipitor) 10 mg PO DAILY [facility] Last Admin: 04/24/17 09:43 Dose: 10 mg Dextrose (D50w (25gm) Syringe) 50 ml IV PRN PRN PRN Reason: Hypoglycemia Enoxaparin Sodium (Lovenox) 40 mg SUB-Q QDAY [facility] Last Admin: 04/24/17 09:43 Dose: 40 mg Furosemide (Lasix) 40 mg IV BID@0600,1800 [facility] Last Admin: 04/24/17 06:39 Dose: 40 mg Insulin Human Regular (Humulin R) 0 units SUB-Q ACHS [facility]; Protocol Last Admin: 04/24/17 12:08 Dose: Not Given Lisinopril (Zestril) 2.5 mg PO QDAY [facility] Last Admin: 04/24/17 09:41 Dose: 2.5 mg Metoprolol Tartrate (Lopressor) 25 mg PO BID [facility] Last Admin: 04/24/17 09:42 Dose: 25 mg Ondansetron HCl (Zofran) 4 mg IV Q8H PRN PRN Reason: Nausea And Vomiting Sodium Chloride (Sodium Chloride Flush Syringe 10 Ml) 10 ml IV BID [facility] Last Admin: 04/24/17 09:43 Dose: 10 ml Sodium Chloride (Sodium Chloride Flush Syringe 10 Ml) 10 ml IV PRN PRN PRN Reason: LINE FLUSH Review of Systems All systems: negative Constitutional: weakness Cardiovascular: orthopnea, edema, shortness of breath, dyspnea on exertion, paroxysmal nocturnal dyspnea Exam - Vital Signs Vital signs: Vital Signs Temp Pulse Resp BP Pulse Ox 98.5 F 74 18 156/92 100 04/22/17 18:59 04/22/17 18:59 04/22/17 18:59 04/22/17 18:59 04/22/17 18:59 - General Appearance General appearance: well-developed, well-nourished, appears stated age EENT: ATNC, PERRL, mucous membranes moist Neck: Present: neck supple Respiratory: Clear to Ascultation Heart: regular, S1S2 Gastrointestinal: Present: normoactive bowel sounds Integumentary: no rash, other (trace edema b/l LE ) Neurologic: no focal deficit, alert and oriented x3, strength 5/5, CN 3-12 intact Psychiatric: mood/affect appropriate, cooperative Results - Lab Results 04/23/17 06:12 04/24/17 05:45 Most recent lab results Calcium 8.2 mg/dL (8.4-10.2) L 04/24/17 05:45 Magnesium 2.10 mg/dL (1.7-2.3) 04/24/17 05:45 Urine Creatinine 63.2 mg/dL (0.1-20.0) H 04/23/17 04:40 Urine Sodium 118 mmol/L 04/23/17 04:40 Urine Total Protein 180 mg/dL (5-11.8) H 04/23/17 04:40 Laboratory Tests 01/12/17 04/23/17 04/23/17 07:11 04:40 04:40 Osmolality Uric Acid Calcium Magnesium Total Creatine Kinase 138 CK-MB (CK-2) 1.4 CK-MB (CK-2) Rel Index 1.0 Troponin T 0.022 Urine WBC (Auto) < 1.0 Urine RBC (Auto) 2.0 U Epithel Cells (Auto) < 1.0 Hyaline Casts 3 Urine Eosinophils Urine Sodium 118 Urine Total Protein 180 H 04/23/17 04/23/17 04/23/17 04:40 20:33 20:34 Osmolality 303 Uric Acid 8.1 H Calcium Magnesium Total Creatine Kinase CK-MB (CK-2) CK-MB (CK-2) Rel Index Troponin T Urine WBC (Auto) Urine RBC (Auto) U Epithel Cells (Auto) Hyaline Casts Urine Eosinophils None seen Urine Sodium Urine Total Protein 04/24/17 05:45 Osmolality Uric Acid Calcium 8.2 L Magnesium 2.10 Total Creatine Kinase CK-MB (CK-2) CK-MB (CK-2) Rel Index Troponin T Urine WBC (Auto) Urine RBC (Auto) U Epithel Cells (Auto) Hyaline Casts Urine Eosinophils Urine Sodium Urine Total Protein Assessment and Plan - Patient Problems (1) Acute kidney injury Current Visit: Yes Status: Acute Plan to address problem: most likely due to pre-renal azotemia in the setting of acute diastolic HF, increased diuretic therapy. renal US shows unchanged b/l echogenicity c/w CKD urine protein/cr ratio ~3g/g likely due to underlying diabetic nephropathy given improved volume status will switch lasix to 40mg po bid in AM. supportive care avoid, nephrotoxins, NSAIDs, IV contrast (2) Type 2 diabetes mellitus with diabetic chronic kidney disease Current Visit: Yes Status: Chronic Plan to address problem: glucose control as per primary attending (3) Chronic kidney disease, stage III (moderate) Current Visit: Yes Status: Acute Plan to address problem: due to presumed diabetic nephropathy. baseline Cr around 1.6mg/dl. cont supportive care avoid nephrotoxins, IV contrast, NSAIDs (4) Proteinuria due to type 2 diabetes mellitus Current Visit: Yes Status: Acute Plan to address problem: cont lisinopril, tight glucose control (5) Acute on chronic diastolic heart failure Current Visit: Yes Status: Acute Plan to address problem: improved volume status, cont lasix, transition to po lasix in AM
--- NOTE | 2017-04-24 18:46 | Progress Note ---
Assessment and Plan Assessment and plan: --Acute on chronic systolic congestive heart failure Mild improvement of symptoms, continue current anti-failure medications Input output monitoring and daily weights, low sodium diet and fluid restriction --Acute on chronic kidney disease stage III; worsening of renal function Probably secondary to diuresis, closely monitor the patient, but just diuretic dose, avoid nephrotoxins --Type 2 diabetes mellitus; Accu-Chek sliding scale coverage and ADA diet and insulin as needed --Hypertension; moderate control continue current antihypertensives and when necessary medication --Chronic anemia; closely monitor and transfuse as needed DVT prophylaxis; Closely monitor the patient and adjust management as needed Possible discharge home tomorrow if stable History Interval history: Patient seen and examined medical records reviewed No new events reported by the nursing staff Patient feels slightly better no new complaints Alert awake oriented 3 Vital signs reviewed Hospitalist Physical - Constitutional Vitals: Temp Pulse Resp BP Pulse Ox 98.8 F 68 18 167/96 91 04/24/17 15:48 04/24/17 15:48 04/24/17 15:48 04/24/17 15:48 04/24/17 15:48 General appearance: Present: no acute distress, well-nourished - EENT Eyes: Present: PERRL, EOM intact - Neck Neck: Present: supple, normal ROM - Respiratory Respiratory effort: normal Respiratory: bilateral: diminished, rales, negative: rhonchi, wheezing - Cardiovascular Rhythm: regular Heart Sounds: Present: S1 & S2 - Extremities Extremities: no ischemia, No edema - Abdominal General gastrointestinal: soft, non-tender, non-distended, normal bowel sounds - Integumentary Integumentary: Present: clear, warm - Psychiatric Psychiatric: appropriate mood/affect, cooperative - Neurologic Neurologic: CNII-XII intact, moves all extremities Results - Labs CBC & Chem 7: 04/23/17 06:12 04/24/17 05:45 Labs: Laboratory Last Values WBC 4.7 K/mm3 (4.5-11.0) 04/23/17 06:12 RBC 3.49 M/mm3 (3.65-5.03) L 04/23/17 06:12 Hgb 9.0 gm/dl (11.8-15.2) L 04/23/17 06:12 Hct 27.7 % (35.5-45.6) L 04/23/17 06:12 MCV 79 fl (84-94) L 04/23/17 06:12 MCH 26 pg (28-32) L 04/23/17 06:12 MCHC 33 % (32-34) 04/23/17 06:12 RDW 18.7 % (13.2-15.2) H 04/23/17 06:12 Plt Count 343 K/mm3 (140-440) 04/23/17 06:12 Lymph % (Auto) 26.9 % (13.4-35.0) 04/23/17 06:12 [place] % (Auto) 15.5 % (0.0-7.3) H 04/23/17 06:12 Eos % (Auto) 3.0 % (0.0-4.3) 04/23/17 06:12 Baso % (Auto) 0.9 % (0.0-1.8) 04/23/17 06:12 Lymph # 1.3 K/mm3 (1.2-5.4) 04/23/17 06:12 [place] # 0.7 K/mm3 (0.0-0.8) 04/23/17 06:12 Eos # 0.1 K/mm3 (0.0-0.4) 04/23/17 06:12 Baso # 0.0 K/mm3 (0.0-0.1) 04/23/17 06:12 Seg Neutrophils % 53.7 % (40.0-70.0) 04/23/17 06:12 Seg Neutrophils # 2.5 K/mm3 (1.8-7.7) 04/23/17 06:12 Sodium 144 mmol/L (137-145) 04/24/17 05:45 Potassium 3.7 mmol/L (3.6-5.0) 04/24/17 05:45 Chloride 106.8 mmol/L (98-107) 04/24/17 05:45 Carbon Dioxide 24 mmol/L (22-30) 04/24/17 05:45 Anion Gap 17 mmol/L 04/24/17 05:45 BUN 23 mg/dL (9-20) H 04/24/17 05:45 Creatinine 2.2 mg/dL (0.8-1.5) H 04/24/17 05:45 Estimated GFR 36 ml/min 04/24/17 05:45 BUN/Creatinine Ratio 10 % 04/24/17 05:45 Glucose 103 mg/dL (75-100) H 04/24/17 05:45 POC Glucose 131 (70-105) H 04/24/17 15:56 Osmolality 303 Mosm/kg 04/23/17 20:33 Uric Acid 8.1 mg/dL (3.5-7.6) H 04/23/17 20:34 Calcium 8.2 mg/dL (8.4-10.2) L 04/24/17 05:45 Magnesium 2.10 mg/dL (1.7-2.3) 04/24/17 05:45 Troponin T 0.024 ng/mL (0.00-0.029) 04/22/17 19:28 NT-Pro-B Natriuret Pep 46102 pg/mL (0-900) H 04/22/17 19:28 Urine WBC (Auto) < 1.0 /HPF (0.0-6.0) 04/23/17 04:40 Urine RBC (Auto) 2.0 /HPF (0.0-6.0) 04/23/17 04:40 U Epithel Cells (Auto) < 1.0 /HPF (0-13.0) 04/23/17 04:40 Hyaline Casts 3 /LPF 04/23/17 04:40 Urine Eosinophils None seen (None Seen) 04/23/17 04:40 Urine Creatinine 63.2 mg/dL (0.1-20.0) H 04/23/17 04:40 Urine Sodium 118 mmol/L 04/23/17 04:40 Urine Total Protein 180 mg/dL (5-11.8) H 04/23/17 04:40
[2017-04-25] MEDS: LASIX IV SCH (06:33)
[2017-04-25 06:46] LABS: Calcium 8.3 mg/dL (8.4-10.2)
[2017-04-25] MEDS: HumuLIN R SUB-Q SCH (07:30)
[2017-04-25] MEDS ORDERED: K-DUR PO ONE (08:37)
[2017-04-25] MEDS: LOVENOX SUB-Q SCH (09:55)
[2017-04-25] MEDS: LOPRESSOR PO SCH ×2 (09:56→22:27)
[2017-04-25] MEDS: HALFPRIN EC PO SCH (09:56)
[2017-04-25] MEDS: ZESTRIL PO SCH (09:57)
--- NOTE | 2017-04-25 12:05 | Progress Note ---
Assessment and Plan - Patient Problems (1) Acute kidney injury Current Visit: Yes Status: Acute Plan to address problem: most likely due to pre-renal azotemia in the setting of acute diastolic HF, increased diuretic therapy. renal US shows unchanged b/l echogenicity c/w CKD urine protein/cr ratio ~3g/g likely due to underlying diabetic nephropathy given improved volume status will switch lasix to 40mg po bid supportive care avoid, nephrotoxins, NSAIDs, IV contrast stable for discharge from renal stand point with outpatient f/u in 1-2 weeks (2) Type 2 diabetes mellitus with diabetic chronic kidney disease Current Visit: Yes Status: Chronic Plan to address problem: glucose control as per primary attending (3) Chronic kidney disease, stage III (moderate) Current Visit: Yes Status: Acute Plan to address problem: due to presumed diabetic nephropathy. baseline Cr around 1.6mg/dl. cont supportive care avoid nephrotoxins, IV contrast, NSAIDs (4) Proteinuria due to type 2 diabetes mellitus Current Visit: Yes Status: Acute Plan to address problem: cont lisinopril, tight glucose control (5) Acute on chronic diastolic heart failure Current Visit: Yes Status: Acute Plan to address problem: improved volume status, cont lasix, transition to po lasix in AM Subjective Date of service: 04/25/17 Principal diagnosis: FLACO on CKD Interval history: Pt awake, alert, in no acute respiratory distress Objective - Vital Signs Vital signs: Vital Signs - 12hr 04/25/17 04/25/17 04/25/17 01:14 05:55 08:22 Temperature 98.3 F 98.3 F 99.1 F Pulse Rate 78 78 77 Respiratory 20 20 22 Rate Blood Pressure 153/85 156/96 174/93 O2 Sat by Pulse 91 94 97 Oximetry 04/25/17 04/25/17 04/25/17 08:33 09:56 09:57 Temperature Pulse Rate 77 77 Respiratory 20 Rate Blood Pressure 174/93 174/93 O2 Sat by Pulse 96 Oximetry 04/25/17 10:00 Temperature Pulse Rate 76 Respiratory Rate Blood Pressure O2 Sat by Pulse Oximetry - General Appearance General appearance: well-developed, well-nourished, appears stated age EENT: ATNC, PERRL, mucous membranes moist Neck: JVD Respiratory: Present: Decreased Breath Sounds Cardiology: regular, S1S2 Gastrointestinal: normoactive bowel sounds Integumentary: no rash, other (trace edema ) Neurologic: no focal deficit, alert and oriented x3, strength 5/5, CN 3-12 intact Psychiatric: mood/affect appropriate, cooperative - Lab 04/23/17 06:12 04/25/17 06:02 Most recent lab results Calcium 8.3 mg/dL (8.4-10.2) L 04/25/17 06:02 Magnesium 2.10 mg/dL (1.7-2.3) 04/25/17 06:02 Urine Creatinine 63.2 mg/dL (0.1-20.0) H 04/23/17 04:40 Urine Sodium 118 mmol/L 04/23/17 04:40 Urine Total Protein 180 mg/dL (5-11.8) H 04/23/17 04:40
[2017-04-25] MEDS ORDERED: APRESOLINE IV PRN (19:41)
--- NOTE | 2017-04-25 19:42 | Progress Note ---
Assessment and Plan Assessment and plan: --Accelerated Hypertension; moderate control continue current antihypertensives and when necessary medication --Acute on chronic systolic congestive heart failure; patient continues to have shortness of breath Mild improvement of symptoms, continue current anti-failure medications, Input output monitoring and daily weights, low sodium diet and Strict fluid restriction --Acute on chronic kidney disease stage III; creatinine improved from 2.2-2.0, patient's baseline is 1.5 closely monitor the patient, adjust diuretics, nephrology following --Type 2 diabetes mellitus; Accu-Chek sliding scale coverage and ADA diet and insulin as needed --Chronic anemia; closely monitor and transfuse as needed --DVT prophylaxis; Lovenox Closely monitor the patient and adjust management as needed Possible discharge home tomorrow if stable History Interval history: Patient seen and examined medical records reviewed Complaints of mild shortness of breath, renal function slowly improving Patient is alert awake oriented 3 Vital signs reviewed Patient blood pressures are uncontrolled Hospitalist Physical - Constitutional Vitals: Temp Pulse Resp BP Pulse Ox 97.3 F L 73 18 177/100 96 04/25/17 15:48 04/25/17 12:12 04/25/17 15:48 04/25/17 15:48 04/25/17 18:02 General appearance: Present: no acute distress, well-nourished - EENT Eyes: Present: PERRL, EOM intact - Neck Neck: Present: supple, normal ROM - Respiratory Respiratory effort: normal Respiratory: bilateral: diminished, rales, negative: rhonchi, wheezing - Cardiovascular Rhythm: regular Heart Sounds: Present: S1 & S2 - Extremities Extremities: no ischemia Extremity abnormal: edema - Abdominal General gastrointestinal: soft, non-tender, non-distended, normal bowel sounds - Integumentary Integumentary: Present: clear, warm - Psychiatric Psychiatric: appropriate mood/affect, cooperative - Neurologic Neurologic: moves all extremities Results - Labs CBC & Chem 7: 04/23/17 06:12 04/25/17 06:02 Labs: Laboratory Last Values WBC 4.7 K/mm3 (4.5-11.0) 04/23/17 06:12 RBC 3.49 M/mm3 (3.65-5.03) L 04/23/17 06:12 Hgb 9.0 gm/dl (11.8-15.2) L 04/23/17 06:12 Hct 27.7 % (35.5-45.6) L 04/23/17 06:12 MCV 79 fl (84-94) L 04/23/17 06:12 MCH 26 pg (28-32) L 04/23/17 06:12 MCHC 33 % (32-34) 04/23/17 06:12 RDW 18.7 % (13.2-15.2) H 04/23/17 06:12 Plt Count 343 K/mm3 (140-440) 04/23/17 06:12 Lymph % (Auto) 26.9 % (13.4-35.0) 04/23/17 06:12 [place] % (Auto) 15.5 % (0.0-7.3) H 04/23/17 06:12 Eos % (Auto) 3.0 % (0.0-4.3) 04/23/17 06:12 Baso % (Auto) 0.9 % (0.0-1.8) 04/23/17 06:12 Lymph # 1.3 K/mm3 (1.2-5.4) 04/23/17 06:12 [place] # 0.7 K/mm3 (0.0-0.8) 04/23/17 06:12 Eos # 0.1 K/mm3 (0.0-0.4) 04/23/17 06:12 Baso # 0.0 K/mm3 (0.0-0.1) 04/23/17 06:12 Seg Neutrophils % 53.7 % (40.0-70.0) 04/23/17 06:12 Seg Neutrophils # 2.5 K/mm3 (1.8-7.7) 04/23/17 06:12 Sodium 143 mmol/L (137-145) 04/25/17 06:02 Potassium 3.4 mmol/L (3.6-5.0) L 04/25/17 06:02 Chloride 104.1 mmol/L (98-107) 04/25/17 06:02 Carbon Dioxide 23 mmol/L (22-30) 04/25/17 06:02 Anion Gap 19 mmol/L 04/25/17 06:02 BUN 23 mg/dL (9-20) H 04/25/17 06:02 Creatinine 2.0 mg/dL (0.8-1.5) H 04/25/17 06:02 Estimated GFR 40 ml/min 04/25/17 06:02 BUN/Creatinine Ratio 12 % 04/25/17 06:02 Glucose 102 mg/dL (75-100) H 04/25/17 06:02 POC Glucose 127 (70-105) H 04/25/17 12:18 Osmolality 303 Mosm/kg 04/23/17 20:33 Uric Acid 8.1 mg/dL (3.5-7.6) H 04/23/17 20:34 Calcium 8.3 mg/dL (8.4-10.2) L 04/25/17 06:02 Magnesium 2.10 mg/dL (1.7-2.3) 04/25/17 06:02 Troponin T 0.024 ng/mL (0.00-0.029) 04/22/17 19:28 NT-Pro-B Natriuret Pep 36300 pg/mL (0-900) H 04/22/17 19:28 Urine WBC (Auto) < 1.0 /HPF (0.0-6.0) 04/23/17 04:40 Urine RBC (Auto) 2.0 /HPF (0.0-6.0) 04/23/17 04:40 U Epithel Cells (Auto) < 1.0 /HPF (0-13.0) 04/23/17 04:40 Hyaline Casts 3 /LPF 04/23/17 04:40 Urine Eosinophils None seen (None Seen) 04/23/17 04:40 Urine Creatinine 63.2 mg/dL (0.1-20.0) H 04/23/17 04:40 Urine Sodium 118 mmol/L 04/23/17 04:40 Urine Total Protein 180 mg/dL (5-11.8) H 04/23/17 04:40
[2017-04-25] MEDS: APRESOLINE PO SCH (22:28)
[2017-04-25] MEDS: LASIX PO SCH (22:28)
[2017-04-26] MEDS: SODIUM CHLORIDE FLUSH SYRINGE 10 ML IV SCH ×2 (00:29→01:06)
[2017-04-26] MEDS: HumuLIN R SUB-Q SCH ×2 (00:29→01:06)
[2017-04-26] MEDS: APRESOLINE PO SCH ×2 (06:12→14:42)
[2017-04-26 08:07] LABS: Hematocrit 23.7 % (35.5-45.6); Mean Corpuscular HGB Conc 34 % (32-34); Mean Corpuscular Hemoglobin 26 pg (28-32); Mean Corpuscular Volume 78 fl (84-94); Platelet Count 288 K/mm3 (140-440); Red Blood Count 3.04 M/mm3 (3.65-5.03); Red Cell Distribution Width 18.4 % (13.2-15.2)
[2017-04-26 08:24] LABS: Calcium 8.3 mg/dL (8.4-10.2)
[2017-04-26 09:30] LABS: Acanthocytes 2+; Anisocytosis 1+; Ovalocytes 1+; Total Cells Counted 100
[2017-04-26 09:31] LABS: Helmet Cells Rare; Hypochromasia Few; Schistocytes Few; Target Cells Rare
[2017-04-26] MEDS: LASIX PO SCH (11:00)
[2017-04-26] MEDS: LOVENOX SUB-Q SCH (11:00)
[2017-04-26] MEDS: ZESTRIL PO SCH (11:00)
[2017-04-26] MEDS: LOPRESSOR PO SCH (11:00)
[2017-04-26] MEDS: HALFPRIN EC PO SCH (11:00)
--- NOTE | 2017-04-26 11:02 | Discharge Summary ---
Providers - Providers Date of Admission: 04/22/17 22:29 Date of discharge: 04/26/17 Attending physician: JOSESITO SOUZA 04/23/17 15:56 Consult to Physician [CONS] Routine Comment: Dr. Benson notified Dr. Gallardo Consulting Provider: LYNN GALLARDO Physician Instructions: Reason For Exam: FLACO Primary care physician: KEL MORALES Hospitalization Reason for admission: worsening leg edema and worsening shortness of breath Condition: Stable Pertinent studies: Chest x-ray; cardiomegaly, pulmonary vascular condition, mild left basilar atelectasis consolidation improved from before, then pitting posterior costophrenic sulci basal atelectasis, trace fluid in the fissure Renal ultrasound; renal parenchyma disease Hospital course: 47-year-old male patient with a significant history of congestive heart failure diabetes mellitus hypertension chronic kidney disease was admitted through emergency room with worsening leg edema and worsening shortness of breath Initially evaluated admitted to the hospital symptomatically managed Noted to have acute on chronic kidney disease, evaluated by desizing machine back tender Medications were optimized Patient seen function was closely monitored, I will ID nephrotoxins Biliary function returned to baseline with creatinine of 2.0 Patient's symptoms significantly improved Today's comfortably in bed, no complaints Vital signs reviewed stable Physical examination prior to discharge was unremarkable Clear by nephrology, patient is stable at discharge to assisted living facility Discharge diagnosis; --Accelerated hypertension; controlled --Acute on chronic congestive heart failure improved --Acute on chronic kidney disease stage III --Type 2 diabetes mellitus --Chronic anemia Disposition: DC/[place]-70 ANOTHER TYPE [facility] Time spent for discharge: 31 min Core Measure Documentation - Palliative Care Palliative Care/ Comfort Measures: Not Applicable - Core Measures Any of the following diagnoses?: none Exam - Constitutional Vitals: Temp Pulse Resp BP Pulse Ox 98.0 F 77 20 160/91 95 04/26/17 08:39 04/26/17 08:39 04/26/17 08:39 04/26/17 08:39 04/26/17 08:39 General appearance: Present: no acute distress, well-nourished - EENT Eyes: Present: PERRL, EOM intact - Neck Neck: Present: supple, normal ROM - Respiratory Respiratory effort: normal Respiratory: bilateral: diminished, negative: rales, rhonchi, wheezing - Cardiovascular Rhythm: regular Heart Sounds: Present: S1 & S2 - Extremities Extremities: no ischemia, No edema - Abdominal General gastrointestinal: Present: soft, non-tender, non-distended, normal bowel sounds - Integumentary Integumentary: Present: clear, warm - Musculoskeletal Musculoskeletal: strength equal bilaterally - Psychiatric Psychiatric: appropriate mood/affect, cooperative - Neurologic Neurologic: CNII-XII intact, moves all extremities Plan Activity: advance as tolerated, fall precautions Diet: low salt, other (cardiac diet) Additional Instructions: If you have any chest pain or shortness of breath, contact M.D. Or go to emergency room Follow up with: KEL MORALES MD [Primary Care Provider] - 3-5 Days FRANCES RODRIGUEZ MD [Staff Physician] - 7 Days Prescriptions: hydrALAZINE [Apresoline TAB] 25 mg PO Q8HR #90 tablet
--- NOTE | 2017-04-26 14:11 | Progress Note ---
Assessment and Plan - Patient Problems (1) Acute kidney injury Current Visit: Yes Status: Acute Plan to address problem: most likely due to pre-renal azotemia in the setting of acute diastolic HF, increased diuretic therapy. renal US shows unchanged b/l echogenicity c/w CKD urine protein/cr ratio ~3g/g likely due to underlying diabetic nephropathy continue lasix to 40mg po bid supportive care avoid, nephrotoxins, NSAIDs, IV contrast stable for discharge from renal stand point with outpatient f/u in 1-2 weeks (2) Type 2 diabetes mellitus with diabetic chronic kidney disease Current Visit: Yes Status: Chronic Plan to address problem: glucose control as per primary attending (3) Chronic kidney disease, stage III (moderate) Current Visit: Yes Status: Acute Plan to address problem: due to presumed diabetic nephropathy. baseline Cr around 1.6mg/dl. cont supportive care avoid nephrotoxins, IV contrast, NSAIDs (4) Proteinuria due to type 2 diabetes mellitus Current Visit: Yes Status: Acute Plan to address problem: cont lisinopril, tight glucose control (5) Acute on chronic diastolic heart failure Current Visit: Yes Status: Acute Plan to address problem: improved volume status, cont lasix, transition to po lasix in AM Subjective Date of service: 04/26/17 Principal diagnosis: FLACO on CKD Interval history: Pt awake, alert, in no acute respiratory distress Objective - Vital Signs Vital signs: Vital Signs - 12hr 04/26/17 04/26/17 04/26/17 04:38 06:12 06:51 Temperature 98.0 F Pulse Rate 74 78 Respiratory 18 Rate Blood Pressure 164/97 164/97 Blood Pressure [Left] O2 Sat by Pulse 95 Oximetry 04/26/17 04/26/17 04/26/17 08:39 11:00 12:51 Temperature 98.0 F 98.0 F Pulse Rate 77 77 64 Respiratory 20 20 Rate Blood Pressure 160/91 160/91 Blood Pressure 161/89 [Left] O2 Sat by Pulse 95 95 Oximetry - General Appearance General appearance: well-developed, well-nourished, appears stated age EENT: ATNC, PERRL, mucous membranes moist Neck: JVD Respiratory: Present: Clear to Ascultation Cardiology: regular, S1S2 Gastrointestinal: normoactive bowel sounds, obese Integumentary: no rash, other (no edema ) Neurologic: no focal deficit, alert and oriented x3, strength 5/5, CN 3-12 intact Psychiatric: mood/affect appropriate, cooperative - Lab 04/26/17 07:34 04/26/17 07:34 Most recent lab results Calcium 8.3 mg/dL (8.4-10.2) L 04/26/17 07:34 Magnesium 2.10 mg/dL (1.7-2.3) 04/25/17 06:02 Urine Creatinine 63.2 mg/dL (0.1-20.0) H 04/23/17 04:40 Urine Sodium 118 mmol/L 04/23/17 04:40 Urine Total Protein 180 mg/dL (5-11.8) H 04/23/17 04:40
[2017-04-26 14:43] VITALS: BP 166/102
== END 2017-04-26 14:30 | disposition home or self-care (01) | DRG 291 ==
LOC: ED 18:44 → 4A 22:29
PROVIDERS: ADMIT Internal Medicine; ATTEND Internal Medicine
DX: I13.0 Hypertensive heart and chronic kidney disease with heart failure and stage 1 through stage 4 chronic kidney disease, or unspecified chronic kidney disease (principal); N17.0 Acute kidney failure with tubular necrosis; I50.43 Acute on chronic combined systolic (congestive) and diastolic (congestive) heart failure; J98.11 Atelectasis; E11.22 Type 2 diabetes mellitus with diabetic chronic kidney disease; R80.9 Proteinuria, unspecified; N18.3 Chronic kidney disease, stage 3 (moderate); D53.9 Nutritional anemia, unspecified; Z86.73 Personal history of transient ischemic attack (TIA), and cerebral infarction without residual deficits; Z86.718 Personal history of other venous thrombosis and embolism; Z82.49 Family history of ischemic heart disease and other diseases of the circulatory system; Z79.82 Long term (current) use of aspirin; Z79.899 Other long term (current) drug therapy
CPT/HCPCS: 36415; 71046; 76770; 80048; 81015; 82570; 82962; 83735; 83880; 83930; 84156; 84165; 84300; 84484; 84550; 85007; 85025; 89050; 93005; 93010; 96374; A9270-GY; J0360; J1650; J1815; J1940

== ENCOUNTER 2017-08-07 10:56 | Outpatient (CLI) | payer MEDICARE ==
[2017-08-07] MEDS ORDERED: XYLOCAINE TOPICAL 4% TP ONE (11:06)
[2017-08-07] MEDS ORDERED: AD OINTMENT TP ONE (11:06)
[2017-08-07] MEDS ORDERED: SILVER NITRATE TP ONE (11:40)
[2017-08-10] MEDS ORDERED: XYLOCAINE TOPICAL 4% TP ONE (14:13)
[2017-08-10] MEDS ORDERED: SILVER NITRATE TP ONE (14:14)
[2017-08-11] MEDS ORDERED: AD OINTMENT TP SCH (10:00)
== END 2017-08-07 10:57 | disposition home or self-care (01) ==
LOC: WOUND 10:56
PROVIDERS: ATTEND Surgery
DX: E11.621 Type 2 diabetes mellitus with foot ulcer (principal); L97.421 Non-pressure chronic ulcer of left heel and midfoot limited to breakdown of skin; L97.411 Non-pressure chronic ulcer of right heel and midfoot limited to breakdown of skin; I11.0 Hypertensive heart disease with heart failure; I50.9 Heart failure, unspecified; Z98.49 Cataract extraction status, unspecified eye
CPT/HCPCS: A6250

== ENCOUNTER 2017-08-14 13:15 | Outpatient (CLI) | payer MEDICARE ==
[2017-08-14] MEDS ORDERED: XYLOCAINE TOPICAL 4% TP ONE ×2 (13:30→15:14)
== END 2017-08-14 13:16 | disposition home or self-care (01) ==
LOC: WOUND 13:15
PROVIDERS: ATTEND Surgery
DX: E11.621 Type 2 diabetes mellitus with foot ulcer (principal); L97.421 Non-pressure chronic ulcer of left heel and midfoot limited to breakdown of skin; L97.411 Non-pressure chronic ulcer of right heel and midfoot limited to breakdown of skin; I11.0 Hypertensive heart disease with heart failure; I50.9 Heart failure, unspecified; Z98.49 Cataract extraction status, unspecified eye

== ENCOUNTER 2017-08-20 15:27 | Emergency (ER) | payer MEDICARE ==
--- NOTE | 2017-08-20 17:03 | Emergency Department Report ---
ED Syncope HPI - General Chief Complaint: Syncope Stated Complaint: SYNCOPY Time Seen by Provider: 08/20/17 16:16 Source: patient Exam Limitations: no limitations - History of Present Illness Initial Comments: Mr wheatley is a 67 year-old man with multiple medical problems who presents via EMS after reported unconscious period. per patient, he was sitting on the porch of the house for about 45 minutes. Someone who lives in the house came running out and thought he was unconscious. He immediately work up. he thinks he was asleep. EMS were already called. He reports no LIND, no chest pain, no shortness of breath, no light headedness. No fever. no cough. recently had bilateral heel wounds surgically debrided. He reports no pain, no fever, no redness. Has wound care appt tomorrow. Feels great. No complaints. Timing/Prior Episodes: no prior history Context: sitting Loss of Consciousness: no loss of consciousness Current Symptoms: back to normal - Related Data Allergies/Adverse Reactions: Allergies No Known Allergies Allergy (Unverified 01/11/17 18:03) Home Medications: Ambulatory Orders Gabapentin [Neurontin] 100 mg PO Q8HR 05/11/17 Mv-Mins/Folic Acid/Guarana/Caf [One Daily Tablet] 1 each PO DAILY 05/11/17 Ferrous Sulfate [Iron] 325 mg PO DAILY #30 tablet 05/15/17 Potassium Chloride [K-Dur] 10 meq PO QDAY #30 tablet 05/15/17 Sitagliptin Phosphate [Januvia] 100 mg PO DAILY #30 tablet 05/15/17 amLODIPine [Norvasc] 10 mg PO DAILY #30 tablet 05/15/17 Aspirin EC [Aspirin Enteric Coated TAB] 81 mg PO QDAY #30 tablet 05/17/17 AtorvaSTATin [Lipitor] 10 mg PO DAILY #30 tablet 05/17/17 Carvedilol [Coreg] 25 mg PO BID #60 tablet 05/17/17 Furosemide [Lasix TAB] 40 mg PO BID #60 tablet 05/17/17 Lisinopril [Zestril TAB] 2.5 mg PO QDAY #30 tablet 05/17/17 glipiZIDE [Glipizide] 10 mg PO DAILY #30 tablet 05/17/17 hydrALAZINE [Apresoline TAB] 25 mg PO Q8HR #90 tablet 05/17/17 Doxycycline [Vibramycin CAP] 100 mg PO Q12HR #42 capsule 07/22/17 Levofloxacin [Levaquin TAB] 750 mg PO Q48H #11 tablet 07/22/17 oxyCODONE /ACETAMINOPHEN [Percocet 5/325 mg] 1 tab PO Q6H PRN #20 tablet ED Review of Systems ROS: Stated complaint: SYNCOPY Other details as noted in HPI Comment: All other systems reviewed and negative ED Past Medical Hx - Past Medical History Previous Medical History?: Yes Hx Hypertension: Yes (CHF) Hx CVA: Yes Hx Heart Attack/AMI: No Hx Congestive Heart Failure: Yes Hx Diabetes: Yes Hx Deep Vein Thrombosis: Yes Hx Liver Disease: No (h/o DVT lower extremeties per notes in chart) Hx Renal Disease: Yes (CKD) Hx Sickle Cell Disease: No Hx Arthritis: Yes Hx Seizures: No Hx Asthma: No Hx COPD: No Hx Dementia: No Additional medical history: High Cholesterol - Surgical History Past Surgical History?: Yes Hx Coronary Stent: No Hx Pacemaker: No Hx Internal Defibrillator: No Additional Surgical History: fei cataract surgery - Social History Smoking Status: Never Smoker Substance Use Type: None - Medications Home Medications: Home Medications Medication Instructions Recorded Confirmed Last Taken Type Gabapentin [Neurontin] 100 mg PO Q8HR 05/11/17 07/16/17 07/15/17 22:00 History Mv-Mins/Folic Acid/Guarana/Caf 1 each PO DAILY 05/11/17 07/16/17 05/11/17 History [One Daily Tablet] Ferrous Sulfate [Iron] 325 mg PO DAILY #30 tablet 05/15/17 07/16/17 Unknown Rx Potassium Chloride [K-Dur] 10 meq PO QDAY #30 tablet 05/15/17 07/16/17 Unknown Rx Sitagliptin Phosphate [Januvia] 100 mg PO DAILY #30 tablet 05/15/17 07/16/17 Unknown Rx amLODIPine [Norvasc] 10 mg PO DAILY #30 tablet 05/15/17 07/16/17 Unknown Rx Aspirin EC [Aspirin Enteric Coated 81 mg PO QDAY #30 tablet 05/17/17 07/16/17 Unknown Rx TAB] AtorvaSTATin [Lipitor] 10 mg PO DAILY #30 tablet 05/17/17 07/16/17 Unknown Rx Carvedilol [Coreg] 25 mg PO BID #60 tablet 05/17/17 07/16/17 Unknown Rx Furosemide [Lasix TAB] 40 mg PO BID #60 tablet 05/17/17 07/16/17 07/15/17 22:00 Rx Lisinopril [Zestril TAB] 2.5 mg PO QDAY #30 tablet 05/17/17 07/16/17 Unknown Rx glipiZIDE [Glipizide] 10 mg PO DAILY #30 tablet 05/17/17 07/16/17 Unknown Rx hydrALAZINE [Apresoline TAB] 25 mg PO Q8HR #90 tablet 05/17/17 07/16/17 Unknown Rx Doxycycline [Vibramycin CAP] 100 mg PO Q12HR #42 capsule 07/22/17 Unknown Rx Levofloxacin [Levaquin TAB] 750 mg PO Q48H #11 tablet 07/22/17 Unknown Rx oxyCODONE /ACETAMINOPHEN [Percocet 1 tab PO Q6H PRN #20 tablet 07/22/17 Unknown Rx 5/325 mg] ED Physical Exam - General Limitations: No Limitations General appearance: alert, in no apparent distress - Head Head exam: Present: atraumatic, normocephalic, normal inspection - Eye Eye exam: Present: normal appearance, PERRL, EOMI. Absent: scleral icterus - ENT ENT exam: Present: normal exam, mucous membranes moist - Neck Neck exam: Present: normal inspection, full ROM. Absent: tenderness, meningismus - Respiratory Respiratory exam: Present: normal lung sounds bilaterally. Absent: respiratory distress, wheezes, rales - Cardiovascular Cardiovascular Exam: Present: regular rate, normal rhythm. Absent: systolic murmur, diastolic murmur, rubs, gallop, JVD - GI/Abdominal GI/Abdominal exam: Present: soft. Absent: distended, tenderness, guarding, rebound - Rectal Rectal exam: Present: deferred - Extremities Exam Extremities exam: Present: normal inspection, full ROM, normal capillary refill. Absent: tenderness - Back Exam Back exam: Present: normal inspection - Neurological Exam Neurological exam: Present: alert, oriented X3 - Psychiatric Psychiatric exam: Present: normal affect, normal mood - Skin Skin exam: Present: warm, dry, intact, normal color, other (bilateral heels with extensive bandages. Splints and wrapping removed, did not remove adhesive over heels. no surrounding redness, brisk cap refill in digits, no swelling. No calf tenderness or swelling). Absent: rash ED Course Vital Signs 08/20/17 08/20/17 08/20/17 15:34 15:45 15:50 Temperature 98.3 F Pulse Rate 73 71 72 Respiratory 14 15 14 Rate Blood Pressure 126/67 126/67 Blood Pressure [Left] O2 Sat by Pulse 100 Oximetry 08/20/17 08/20/17 08/20/17 16:00 16:06 16:15 Temperature 98.3 F Pulse Rate 68 72 74 Respiratory 21 14 14 Rate Blood Pressure 121/66 121/66 Blood Pressure 126/67 [Left] O2 Sat by Pulse 100 Oximetry 08/20/17 08/20/17 08/20/17 16:31 16:45 17:00 Temperature Pulse Rate 72 72 71 Respiratory 19 19 20 Rate Blood Pressure 121/66 121/66 109/76 Blood Pressure [Left] O2 Sat by Pulse Oximetry 08/20/17 08/20/17 08/20/17 17:15 17:31 17:45 Temperature Pulse Rate 72 75 72 Respiratory 22 17 18 Rate Blood Pressure 121/66 121/66 109/76 Blood Pressure [Left] O2 Sat by Pulse Oximetry 08/20/17 08/20/17 08/20/17 18:01 18:15 18:31 Temperature Pulse Rate 79 80 81 Respiratory 18 17 20 Rate Blood Pressure 144/84 144/84 144/84 Blood Pressure [Left] O2 Sat by Pulse Oximetry 08/20/17 08/20/17 18:45 19:01 Temperature Pulse Rate 80 82 Respiratory 19 13 Rate Blood Pressure 144/84 136/85 Blood Pressure [Left] O2 Sat by Pulse Oximetry ED Medical Decision Making - Lab Data Result diagrams: 08/20/17 17:15 08/20/17 17:16 Lab Results 08/20/17 08/20/17 Range/Units 17:15 17:16 WBC 5.7 (4.5-11.0) K/mm3 RBC 3.10 L (3.65-5.03) M/mm3 Hgb 7.8 L (11.8-15.2) gm/dl Hct 23.4 L (35.5-45.6) % MCV 76 L (84-94) fl MCH 25 L (28-32) pg MCHC 33 (32-34) % RDW 18.3 H (13.2-15.2) % Plt Count 242 (140-440) K/mm3 [place] % (Auto) Occ Therapist Add Manual Diff Complete Total Counted 100 Seg Neuts % (Manual) 73.0 H (40.0-70.0) % Band Neutrophils % 0 % Lymphocytes % (Manual) 16.0 (13.4-35.0) % Reactive Lymphs % (Man) 0 % Monocytes % (Manual) 5.0 (0.0-7.3) % Eosinophils % (Manual) 4.0 (0.0-4.3) % Basophils % (Manual) 2.0 H (0.0-1.8) % Metamyelocytes % 0 % Myelocytes % 0 % Promyelocytes % 0 % Blast Cells % 0 % Nucleated RBC % Not Reportable Seg Neutrophils # Man 4.2 (1.8-7.7) K/mm3 Band Neutrophils # 0.0 K/mm3 Lymphocytes # (Manual) 0.9 L (1.2-5.4) K/mm3 Abs React Lymphs (Man) 0.0 K/mm3 Monocytes # (Manual) 0.3 (0.0-0.8) K/mm3 Eosinophils # (Manual) 0.2 (0.0-0.4) K/mm3 Basophils # (Manual) 0.1 (0.0-0.1) K/mm3 Metamyelocytes # 0.0 K/mm3 Myelocytes # 0.0 K/mm3 Promyelocytes # 0.0 K/mm3 Blast Cells # 0.0 K/mm3 WBC Morphology Not Reportable Hypersegmented Neuts Not Reportable Hyposegmented Neuts Not Reportable Hypogranular Neuts Not Reportable Smudge Cells Not Reportable Toxic Granulation Not Reportable Toxic Vacuolation Not Reportable Dohle Bodies Not Reportable Pelger-Huet Anomaly Not Reportable Ragini Rods Not Reportable Platelet Estimate Consistent w auto Clumped Platelets Not Reportable Plt Clumps, EDTA Not Reportable Large Platelets Not Reportable Giant Platelets Not Reportable Platelet Satelliting Not Reportable Plt Morphology Comment Not Reportable RBC Morphology Not Reportable Dimorphic RBCs Not Reportable Polychromasia Not Reportable Hypochromasia Not Reportable Poikilocytosis 1+ Anisocytosis 1+ Microcytosis Not Reportable Macrocytosis Not Reportable Spherocytes Not Reportable Pappenheimer Bodies Not Reportable Sickle Cells Not Reportable Target Cells Rare Tear Drop Cells Not Reportable Ovalocytes Not Reportable Helmet Cells Not Reportable [place] Bodies Not Reportable [place] Rings Not Reportable [place] Cells Not Reportable Bite Cells Not Reportable Crenated Cell Not Reportable Elliptocytes Few Acanthocytes (Spur) Not Reportable Rouleaux Not Reportable Hemoglobin C Crystals Not Reportable Schistocytes Few Malaria parasites Not Reportable [place] Bodies Not Reportable Hem Pathologist Commnt No Sodium 133 L (137-145) mmol/L Potassium 3.5 L (3.6-5.0) mmol/L Chloride 95.8 L (98-107) mmol/L Carbon Dioxide 27 (22-30) mmol/L Anion Gap 14 mmol/L BUN 48 H (9-20) mg/dL Creatinine 2.5 H (0.8-1.5) mg/dL Estimated GFR 31 ml/min BUN/Creatinine Ratio 19 % Glucose 105 H (75-100) mg/dL Calcium 8.5 (8.4-10.2) mg/dL Magnesium 1.80 (1.7-2.3) mg/dL Total Bilirubin 0.20 (0.1-1.2) mg/dL AST 19 (5-40) units/L ALT 13 (7-56) units/L Alkaline Phosphatase 64 (35-129) units/L Troponin T 0.052 H (0.00-0.029) ng/mL NT-Pro-B Natriuret Pep 3602 H (0-900) pg/mL Total Protein 6.4 (6.3-8.2) g/dL Albumin 2.4 L (3.9-5) g/dL Albumin/Globulin Ratio 0.6 % Triglycerides 69 (2-149) mg/dL Cholesterol 92 (50-199) mg/dL LDL Cholesterol Direct 42 L (50-130) mg/dL HDL Cholesterol 44 (40-59) mg/dL Cholesterol/HDL Ratio 2.09 % - EKG Data 08/20/17 17:46 HR 74, sinus, left axis, 1st degree AV block, no ST changes concerning for acute ischemia - Medical Decision Making Mr wheatley is a 67 year-old man with hx of CKD III, CHf, HTN who presents after questionable LOC. Was sitting on the porch, someone thought he was unconscious. patient reports he was asleep. Came via EMS. Reports no symptoms. well appearing. Lab eval reveals baseline Cr 2.4. BUN elevated. Hgb at baseline. Trop 0.05 (CKD). EKG non-ischemic, NSR with 2 PVCs. Ordered 1L NS, patient declines and would like to go home and drink fluids instead. Given care instructions, return precautions. Suspect this was not syncopal episode. Will return for LOC, chest pain, dyspnea, AMS. is with his brother. Will be seen in wound care clinic tomorrow. Safe for dc. Critical care attestation.: If time is entered above; I have spent that time in minutes in the direct care of this critically ill patient, excluding procedure time. ED Disposition Clinical Impression: Dehydration Disposition: DC-01 TO HOME OR SELFCARE Is pt being admited?: No Does the pt Need Aspirin: No Condition: Stable Instructions: Dehydration (ED), Syncope (ED) Referrals: PRIMARY CARE, [Primary Care Provider] - 3-5 Days
[2017-08-20 17:34] LABS: Hematocrit 23.4 % (35.5-45.6); Hemoglobin 7.8 gm/dl (11.8-15.2); Mean Corpuscular HGB Conc 33 % (32-34); Mean Corpuscular Volume 76 fl (84-94); Platelet Count 242 K/mm3 (140-440); Red Cell Distribution Width 18.3 % (13.2-15.2)
[2017-08-20 17:35] LABS: Mean Corpuscular Hemoglobin 25 pg (28-32)
[2017-08-20 17:51] LABS: Albumin 2.4 g/dL (3.9-5); Calcium 8.5 mg/dL (8.4-10.2)
[2017-08-20 19:07] LABS: Total Cells Counted 100
[2017-08-20 19:08] LABS: Chol/HDL Ratio 2.09 %
[2017-08-20 19:08] LABS: Anisocytosis 1+; Platelet Estimate Consistent w Auto; Poikilocytosis 1+; Schistocytes Few; Target Cells Rare
[2017-08-20] MEDS ORDERED: NACL 0.9% 1000 ML 1,000 ML IV ONE (19:08)
[2017-08-20 19:12] VITALS: BP 136/85
== END 2017-08-20 20:22 | disposition home or self-care (01) ==
LOC: ED 15:27
DX: E86.0 Dehydration (principal); R55 Syncope and collapse; Z86.73 Personal history of transient ischemic attack (TIA), and cerebral infarction without residual deficits; I50.9 Heart failure, unspecified; E78.00 Pure hypercholesterolemia, unspecified; E11.22 Type 2 diabetes mellitus with diabetic chronic kidney disease; I13.0 Hypertensive heart and chronic kidney disease with heart failure and stage 1 through stage 4 chronic kidney disease, or unspecified chronic kidney disease; N18.3 Chronic kidney disease, stage 3 (moderate); Z79.84 Long term (current) use of oral hypoglycemic drugs
CPT/HCPCS: 36415; 80053; 80061; 83735; 83880; 84484; 85007; 85025; 93005; 93010; 99283; J7030

== ENCOUNTER 2017-08-21 13:04 | Outpatient (CLI) | payer MEDICARE ==
[2017-08-21] MEDS ORDERED: XYLOCAINE TOPICAL 4% TP ONE ×2 (13:29→13:47)
[2017-08-21] MEDS ORDERED: AD OINTMENT TP ONE (13:29)
[2017-08-21] MEDS ORDERED: AD OINTMENT TP PRN (13:47)
== END 2017-08-21 13:05 | disposition home or self-care (01) ==
LOC: WOUND 13:04
PROVIDERS: ATTEND Surgery
DX: E11.621 Type 2 diabetes mellitus with foot ulcer (principal); L97.421 Non-pressure chronic ulcer of left heel and midfoot limited to breakdown of skin; L97.411 Non-pressure chronic ulcer of right heel and midfoot limited to breakdown of skin; I11.0 Hypertensive heart disease with heart failure; I50.9 Heart failure, unspecified; Z98.49 Cataract extraction status, unspecified eye
CPT/HCPCS: A6250

== ENCOUNTER 2017-08-28 13:13 | Outpatient (CLI) | payer MEDICARE ==
[2017-08-28] MEDS ORDERED: XYLOCAINE TOPICAL 4% TP ONE (13:19)
[2017-08-28] MEDS ORDERED: SILVER NITRATE TP ONE ×3 (13:41→13:52)
[2017-08-28] MEDS ORDERED: AD OINTMENT TP ONE (13:48)
[2017-08-29] MEDS ORDERED: AD OINTMENT TP SCH (10:00)
== END 2017-08-28 13:14 | disposition home or self-care (01) ==
LOC: WOUND 13:13
PROVIDERS: ATTEND Surgery
DX: E11.621 Type 2 diabetes mellitus with foot ulcer (principal); L97.421 Non-pressure chronic ulcer of left heel and midfoot limited to breakdown of skin; L97.411 Non-pressure chronic ulcer of right heel and midfoot limited to breakdown of skin; I11.0 Hypertensive heart disease with heart failure; I50.9 Heart failure, unspecified; Z98.49 Cataract extraction status, unspecified eye
CPT/HCPCS: A6250

== ENCOUNTER 2017-09-04 13:05 | Outpatient (CLI) | payer MEDICARE ==
[2017-09-04] MEDS ORDERED: XYLOCAINE TOPICAL 4% TP ONE ×2 (13:37→15:02)
== END 2017-09-04 13:06 | disposition home or self-care (01) ==
LOC: WOUND 13:05
PROVIDERS: ATTEND Surgery
DX: E11.621 Type 2 diabetes mellitus with foot ulcer (principal); L97.421 Non-pressure chronic ulcer of left heel and midfoot limited to breakdown of skin; L97.411 Non-pressure chronic ulcer of right heel and midfoot limited to breakdown of skin; I11.0 Hypertensive heart disease with heart failure; I50.9 Heart failure, unspecified; Z98.49 Cataract extraction status, unspecified eye

== ENCOUNTER 2017-09-11 13:05 | Outpatient (CLI) | payer MEDICARE ==
[2017-09-11] MEDS ORDERED: XYLOCAINE TOPICAL 4% TP ONE ×2 (13:25→13:36)
[2017-09-11] MEDS ORDERED: SILVER NITRATE TP ONE (13:39)
== END 2017-09-11 13:06 | disposition home or self-care (01) ==
LOC: WOUND 13:05
PROVIDERS: ATTEND Surgery
DX: E11.621 Type 2 diabetes mellitus with foot ulcer (principal); L97.421 Non-pressure chronic ulcer of left heel and midfoot limited to breakdown of skin; L97.411 Non-pressure chronic ulcer of right heel and midfoot limited to breakdown of skin; I11.0 Hypertensive heart disease with heart failure; I50.9 Heart failure, unspecified; Z98.49 Cataract extraction status, unspecified eye

== ENCOUNTER 2017-09-18 13:10 | Outpatient (CLI) | payer MEDICARE ==
[2017-09-18] MEDS ORDERED: XYLOCAINE TOPICAL 4% TP ONE ×2 (13:29→15:40)
[2017-09-18] MEDS ORDERED: SILVER NITRATE TP ONE ×2 (14:06→15:40)
[2017-09-18] MEDS ORDERED: AD OINTMENT TP ONE (14:09)
[2017-09-19] MEDS ORDERED: AD OINTMENT TP SCH (10:00)
== END 2017-09-18 13:11 | disposition home or self-care (01) ==
LOC: WOUND 13:10
PROVIDERS: ATTEND Surgery
DX: E11.621 Type 2 diabetes mellitus with foot ulcer (principal); L97.421 Non-pressure chronic ulcer of left heel and midfoot limited to breakdown of skin; L97.411 Non-pressure chronic ulcer of right heel and midfoot limited to breakdown of skin; I11.0 Hypertensive heart disease with heart failure; I50.9 Heart failure, unspecified; Z98.49 Cataract extraction status, unspecified eye
CPT/HCPCS: A6250

== ENCOUNTER 2017-09-25 08:04 | Outpatient (CLI) | payer MEDICARE ==
[2017-09-25] MEDS ORDERED: XYLOCAINE TOPICAL 4% TP ONE (08:28)
[2017-09-25] MEDS ORDERED: DAKIN'S FULL STRENGTH TP ONE (08:46)
[2017-09-25] MEDS ORDERED: SILVER NITRATE TP ONE ×2 (09:07→09:09)
== END 2017-09-25 08:05 | disposition home or self-care (01) ==
LOC: WOUND 08:04
PROVIDERS: ATTEND Surgery
DX: E11.621 Type 2 diabetes mellitus with foot ulcer (principal); L97.421 Non-pressure chronic ulcer of left heel and midfoot limited to breakdown of skin; L97.411 Non-pressure chronic ulcer of right heel and midfoot limited to breakdown of skin; I11.0 Hypertensive heart disease with heart failure; I50.9 Heart failure, unspecified; Z98.49 Cataract extraction status, unspecified eye

== ENCOUNTER 2017-10-01 11:58 | Emergency (ER) | payer MEDICARE ==
[2017-10-01] MEDS ORDERED: HumuLIN R SUB-Q STA (12:53)
--- NOTE | 2017-10-01 12:54 | Emergency Department Report ---
ED General Adult HPI - General Chief complaint: Hyperglycemia Stated complaint: HYPERGLYCEMIA Time Seen by Provider: 10/01/17 12:49 Source: patient, EMS (ems notes not available at time of chart dictation), RN notes reviewed, old records reviewed Mode of arrival: Stretcher Limitations: Physical Limitation (patient has poor mobility secondary to chronic wounds.) - History of Present Illness Initial comments: This is a 67-year-old gentleman who is not known to this provider previously. His past medical history includes malnutrition, CK D stage III, diabetic foot ulcers, systolic heart failure. His knockout worker is Dr. Bonilla Session He is sent to the ER for hyperglycemia that is not symptomatic. He denies headache, neck pain, chest pain, abdominal pain, shortness of breath. He does endorse some dietary indiscretions. He denies urinary symptoms. He is going to wound care 3 days a week. His next wound care appointment is tomorrow. His wound dressings were changed yesterday. -: This morning Consistency: constant Improves with: none Worsens with: none Associated Symptoms: denies other symptoms - Related Data Home Medications Medication Instructions Recorded Confirmed Last Taken Gabapentin [Neurontin] 100 mg PO Q8HR 05/11/17 07/16/17 07/15/17 22:00 Mv-Mins/Folic Acid/Guarana/Caf 1 each PO DAILY 05/11/17 07/16/17 05/11/17 [One Daily Tablet] Previous Rx's Medication Instructions Recorded Last Taken Type Ferrous Sulfate [Iron] 325 mg PO DAILY #30 tablet 05/15/17 Unknown Rx Potassium Chloride [K-Dur] 10 meq PO QDAY #30 tablet 05/15/17 Unknown Rx Sitagliptin Phosphate [Januvia] 100 mg PO DAILY #30 tablet 05/15/17 Unknown Rx amLODIPine [Norvasc] 10 mg PO DAILY #30 tablet 05/15/17 Unknown Rx Aspirin EC [Aspirin Enteric Coated 81 mg PO QDAY #30 tablet 05/17/17 Unknown Rx TAB] AtorvaSTATin [Lipitor] 10 mg PO DAILY #30 tablet 05/17/17 Unknown Rx Carvedilol [Coreg] 25 mg PO BID #60 tablet 05/17/17 Unknown Rx Furosemide [Lasix TAB] 40 mg PO BID #60 tablet 05/17/17 07/15/17 22:00 Rx Lisinopril [Zestril TAB] 2.5 mg PO QDAY #30 tablet 05/17/17 Unknown Rx glipiZIDE [Glipizide] 10 mg PO DAILY #30 tablet 05/17/17 Unknown Rx hydrALAZINE [Apresoline TAB] 25 mg PO Q8HR #90 tablet 05/17/17 Unknown Rx Doxycycline [Vibramycin CAP] 100 mg PO Q12HR #42 capsule 07/22/17 Unknown Rx levoFLOXacin [Levaquin TAB] 750 mg PO Q48H #11 tablet 07/22/17 Unknown Rx oxyCODONE /ACETAMINOPHEN [Percocet 1 tab PO Q6H PRN #20 tablet 07/22/17 Unknown Rx 5/325 mg] Allergies Allergy/AdvReac Type Severity Reaction Status Date / Time No Known Allergies Allergy Unverified 01/11/17 18:03 ED Review of Systems ROS: Stated complaint: HYPERGLYCEMIA Other details as noted in HPI Comment: All other systems reviewed and negative ED Past Medical Hx - Past Medical History Hx Hypertension: Yes Hx CVA: Yes Hx Heart Attack/AMI: No Hx Congestive Heart Failure: Yes Hx Diabetes: Yes Hx Deep Vein Thrombosis: Yes Hx Liver Disease: No (h/o DVT lower extremeties per notes in chart) Hx Renal Disease: Yes (CKD) Hx Sickle Cell Disease: No Hx Arthritis: Yes Hx Seizures: No Hx Asthma: No Hx COPD: No Hx Dementia: No Additional medical history: High Cholesterol - Surgical History Hx Coronary Stent: No Hx Pacemaker: No Hx Internal Defibrillator: No Additional Surgical History: fei cataract surgery - Social History Smoking Status: Never Smoker Substance Use Type: None - Medications Home Medications: Home Medications Medication Instructions Recorded Confirmed Last Taken Type Gabapentin [Neurontin] 100 mg PO Q8HR 05/11/17 07/16/17 07/15/17 22:00 History Mv-Mins/Folic Acid/Guarana/Caf 1 each PO DAILY 05/11/17 07/16/17 05/11/17 History [One Daily Tablet] Ferrous Sulfate [Iron] 325 mg PO DAILY #30 tablet 05/15/17 07/16/17 Unknown Rx Potassium Chloride [K-Dur] 10 meq PO QDAY #30 tablet 05/15/17 07/16/17 Unknown Rx Sitagliptin Phosphate [Januvia] 100 mg PO DAILY #30 tablet 05/15/17 07/16/17 Unknown Rx amLODIPine [Norvasc] 10 mg PO DAILY #30 tablet 05/15/17 07/16/17 Unknown Rx Aspirin EC [Aspirin Enteric Coated 81 mg PO QDAY #30 tablet 05/17/17 07/16/17 Unknown Rx TAB] AtorvaSTATin [Lipitor] 10 mg PO DAILY #30 tablet 05/17/17 07/16/17 Unknown Rx Carvedilol [Coreg] 25 mg PO BID #60 tablet 05/17/17 07/16/17 Unknown Rx Furosemide [Lasix TAB] 40 mg PO BID #60 tablet 05/17/17 07/16/17 07/15/17 22:00 Rx Lisinopril [Zestril TAB] 2.5 mg PO QDAY #30 tablet 05/17/17 07/16/17 Unknown Rx glipiZIDE [Glipizide] 10 mg PO DAILY #30 tablet 05/17/17 07/16/17 Unknown Rx hydrALAZINE [Apresoline TAB] 25 mg PO Q8HR #90 tablet 05/17/17 07/16/17 Unknown Rx Doxycycline [Vibramycin CAP] 100 mg PO Q12HR #42 capsule 07/22/17 Unknown Rx levoFLOXacin [Levaquin TAB] 750 mg PO Q48H #11 tablet 07/22/17 Unknown Rx oxyCODONE /ACETAMINOPHEN [Percocet 1 tab PO Q6H PRN #20 tablet 07/22/17 Unknown Rx 5/325 mg] ED Physical Exam - General Limitations: No Limitations General appearance: alert, in no apparent distress - Head Head exam: Present: atraumatic, normocephalic - Eye Eye exam: Present: normal appearance, EOMI. Absent: nystagmus - ENT ENT exam: Present: normal exam, normal orophraynx, mucous membranes moist, normal external ear exam - Neck Neck exam: Present: normal inspection, full ROM - Respiratory Respiratory exam: Present: normal lung sounds bilaterally. Absent: respiratory distress - Cardiovascular Cardiovascular Exam: Present: regular rate, normal rhythm, normal heart sounds. Absent: bradycardia, tachycardia, irregular rhythm, systolic murmur, diastolic murmur, rubs, gallop - GI/Abdominal GI/Abdominal exam: Present: soft. Absent: distended, tenderness, guarding, rebound, rigid, pulsatile mass - Rectal Rectal exam: Present: deferred - Extremities Exam Extremities exam: Present: full ROM (2+ pulses noted in the bilateral upper extremities), pedal edema, other (2-3+ edema in the lower extremities). Absent : calf tenderness - Back Exam Back exam: Present: normal inspection, full ROM. Absent: tenderness, CVA tenderness (R), paraspinal tenderness, vertebral tenderness - Neurological Exam Neurological exam: Present: alert, oriented X3, CN II-XII intact, other ( Extraocular movements intact. Tongue midline. No facial droop. Facial sensation intact to light touch in the V1, V2, V3 distribution bilaterally. 5 and 5 strength in 4 extremities.. Sensation is intact to light touch in 4 extremities.). Absent: motor sensory deficit - Psychiatric Psychiatric exam: Present: normal affect, normal mood - Skin Skin exam: Present: warm, dry, intact, normal color. Absent: rash ED Course Vital Signs 10/01/17 12:23 Temperature 98.6 F Pulse Rate 68 Respiratory 18 Rate Blood Pressure 112/58 O2 Sat by Pulse 100 Oximetry - Reevaluation(s) Reevaluation #1: 10/01/17 14:37 Differential diagnosis, including but not limited to: Hyperglycemia, diabetic ketoacidosis, electrolyte derangement Assessment and plan: 67-year-old male with hypoglycemia that is not symptomatic and not consistent with diabetic ketoacidosis. Laboratory studies also show chronic anemia, which is not symptomatic, most likely anemia of chronic disease , and likely related to his underlying renal insufficiency. This does not require immediate correction in the emergency room and he can follow up with his primary care doctor or knockout worker for this. Unexpectedly he is found to have a degree of hypokalemia with potassium of 3.1, and hyponatremia. I have contacted his primary knockout worker, Dr. Cohen, who is going to come by shortly and evaluate the patient and make recommendations regarding his electrolyte derangement. 10/01/17 15:03 Reevaluation #2: 10/01/17 15:03 Dr Cohen advises normal saline, 500 mL, and 40 mEq of potassium chloride. He indicates he will see the patient in the clinic next week. He also advises that serum glucose of 315 May be causing pseudohyponatremia. Reevaluation #3: 10/01/17 16:13 Patient is feeling improved after IV fluids. Accu-Chek is appreciated, his hyperglycemia as a manifestation of his chronic diabetes, patient has received a few rounds of insulin while here in the ER, and does not require hospitalization for his chronic hyperglycemia. He does not have an anion gap acidosis that require initiation of insulin drip. The patient is suitable to be discharged to follow-up with a primary care doctor , and he is advised to appear to appropriate diet and lifestyle. ED Medical Decision Making - Lab Data Result diagrams: 10/01/17 13:03 10/01/17 13:03 Vital Signs 10/01/17 12:23 Temperature 98.6 F Pulse Rate 68 Respiratory 18 Rate Blood Pressure 112/58 O2 Sat by Pulse 100 Oximetry Lab Results 10/01/17 10/01/17 10/01/17 Range/Units 12:43 13:03 13:03 WBC 9.2 (4.5-11.0) K/mm3 RBC 2.86 L (3.65-5.03) M/mm3 Hgb 7.1 L (11.8-15.2) gm/dl Hct 21.5 L (35.5-45.6) % MCV 75 L (84-94) fl MCH 25 L (28-32) pg MCHC 33 (32-34) % RDW 17.9 H (13.2-15.2) % Plt Count 326 (140-440) K/mm3 VBG pH (7.320-7.420) Sodium 125 L (137-145) mmol/L Potassium 3.1 L (3.6-5.0) mmol/L Chloride 83.9 L (98-107) mmol/L Carbon Dioxide 26 (22-30) mmol/L Anion Gap 18 mmol/L BUN 100 H (9-20) mg/dL Creatinine 2.9 H (0.8-1.5) mg/dL Estimated GFR 26 ml/min BUN/Creatinine Ratio 34 % Glucose 315 H (75-100) mg/dL POC Glucose 387 H (70-105) Calcium 8.6 (8.4-10.2) mg/dL Magnesium 1.90 (1.7-2.3) mg/dL Total Creatine Kinase 46 L (55-170) units/L 10/01/17 Range/Units 13:03 WBC (4.5-11.0) K/mm3 RBC (3.65-5.03) M/mm3 Hgb (11.8-15.2) gm/dl Hct (35.5-45.6) % MCV (84-94) fl MCH (28-32) pg MCHC (32-34) % RDW (13.2-15.2) % Plt Count (140-440) K/mm3 VBG pH 7.472 H (7.320-7.420) Sodium (137-145) mmol/L Potassium (3.6-5.0) mmol/L Chloride (98-107) mmol/L Carbon Dioxide (22-30) mmol/L Anion Gap mmol/L BUN (9-20) mg/dL Creatinine (0.8-1.5) mg/dL Estimated GFR ml/min BUN/Creatinine Ratio % Glucose (75-100) mg/dL POC Glucose (70-105) Calcium (8.4-10.2) mg/dL Magnesium (1.7-2.3) mg/dL Total Creatine Kinase (55-170) units/L Critical care attestation.: If time is entered above; I have spent that time in minutes in the direct care of this critically ill patient, excluding procedure time. ED Disposition Clinical Impression: Chronic kidney disease, stage III (moderate), Hyperglycemia Disposition: - TO HOME OR SELFCARE Is pt being admited?: No Does the pt Need Aspirin: No Condition: Stable Additional Instructions: Continue current outpatient medications. Make certain to adhere to a diet that is compliant with [place] [employer] recommendations. Please check the website for specifics. Follow up with your kidney doctor, Dr. Tolentino, within the next 7-10 days. Return to the ER right away with new pain, worsened pain, migration of pain, projectile vomiting, change in mental status, confusion , inability to tolerate liquid feeds. Referrals: PRIMARY CARE, [Primary Care Provider] - 3-5 Days DAVID TOLENTINO MD [Staff Physician] - 3-5 Days NINA PHILLIPS MD [Staff Physician] - 3-5 Days [facility] [Outside] - 3-5 Days
[2017-10-01 13:26] LABS: Hematocrit 21.5 % (35.5-45.6); Hemoglobin 7.1 gm/dl (11.8-15.2); Mean Corpuscular HGB Conc 33 % (32-34); Mean Corpuscular Volume 75 fl (84-94); Platelet Count 326 K/mm3 (140-440); Red Blood Count 2.86 M/mm3 (3.65-5.03); Red Cell Distribution Width 17.9 % (13.2-15.2)
[2017-10-01 13:30] LABS: Mean Corpuscular Hemoglobin 25 pg (28-32)
[2017-10-01 13:42] LABS: Calcium 8.6 mg/dL (8.4-10.2)
[2017-10-01] MEDS ORDERED: HumuLIN R SUB-Q ONE (14:40)
[2017-10-01] MEDS ORDERED: NACL 0.9% 500 ML 500 ML IV ONE (15:02)
[2017-10-01] MEDS ORDERED: K-DUR PO ONE (15:02)
[2017-10-01 16:26] VITALS: BP 103/55
--- NOTE | 2017-10-03 10:17 | Consultation ---
History of Present Illness - Reason for Consult Consult date: 10/01/17 acute renal failure, chronic renal failure, hyponatremia, other - History of Present Illness The patient is a 67 yo AAM with medical history significant for DM-2, Hypertension, CKD stage 3, chronic systolic CHF with volume overload and chronic bilateral heel ulcer who presented to the [facility] ER for evaluation of hyperglycemia. Patient is well known to our service and followed by us for CKD stage 3. Patient is a poor historian. He denies fever, chills, weakness, N, V , D, headache, chest pain, abd. pain, dysuria, hematuria, shortness of breath, dizziness or syncope. His baseline creatinine was around 2.3 and today his creatinine is 2.9, sodium 125 and blood sugar 387. Past History Past Medical History: anemia, diabetes, heart failure, hypertension, renal failure Medications and Allergies Allergies Allergy/AdvReac Type Severity Reaction Status Date / Time No Known Allergies Allergy Unverified 01/11/17 18:03 Home Medications Medication Instructions Recorded Confirmed Last Taken Type Gabapentin [Neurontin] 100 mg PO Q8HR 05/11/17 10/02/17 10/02/17 History Mv-Mins/Folic Acid/Guarana/Caf 1 each PO DAILY 05/11/17 10/02/17 10/02/17 History [One Daily Tablet] Ferrous Sulfate [Iron] 325 mg PO DAILY #30 tablet 05/15/17 10/02/17 10/02/17 Rx Potassium Chloride [K-Dur] 10 meq PO QDAY #30 tablet 05/15/17 10/02/17 10/02/17 Rx Sitagliptin Phosphate [Januvia] 100 mg PO DAILY #30 tablet 05/15/17 10/02/17 Rx amLODIPine [Norvasc] 10 mg PO DAILY #30 tablet 05/15/17 10/02/17 10/02/17 Rx Aspirin EC [Aspirin Enteric Coated 81 mg PO QDAY #30 tablet 05/17/17 10/02/17 Rx TAB] AtorvaSTATin [Lipitor] 10 mg PO DAILY #30 tablet 05/17/17 10/02/17 10/02/17 Rx Carvedilol [Coreg] 25 mg PO BID #60 tablet 05/17/17 10/02/17 10/02/17 Rx Furosemide [Lasix TAB] 40 mg PO BID #60 tablet 05/17/17 10/02/17 10/02/17 Rx Lisinopril [Zestril TAB] 2.5 mg PO QDAY #30 tablet 05/17/17 10/02/17 10/02/17 Rx glipiZIDE [Glipizide] 10 mg PO DAILY #30 tablet 05/17/17 10/02/17 10/02/17 Rx hydrALAZINE [Apresoline TAB] 25 mg PO Q8HR #90 tablet 05/17/17 10/02/17 Rx Doxycycline [Vibramycin CAP] 100 mg PO Q12HR #42 capsule 07/22/17 10/02/1710/02 Rx levoFLOXacin [Levaquin TAB] 750 mg PO Q48H #11 tablet 07/22/17 10/02/17 Rx oxyCODONE /ACETAMINOPHEN [Percocet 1 tab PO Q6H PRN #20 tablet 07/22/1710/02/17 Rx 5/325 mg] Review of Systems Constitutional: no weight loss, no weight gain, no fever, no chills, no anorexia , no weakness Cardiovascular: edema, high blood pressure, leg edema, no chest pain, no orthopnea, no syncope, no lightheadedness, no shortness of breath, no dyspnea on exertion Respiratory: no cough, no shortness of breath, no dyspnea on exertion Gastrointestinal: no abdominal pain, no nausea, no vomiting, no diarrhea, no melena Genitourinary Male: no dysuria, no hematuria Integumentary: wounds Neurological: no paralysis, no weakness, no change in speech, no change in mentation Endocrine: no weight change Hematologic/Lymphatic: no easy bruising Exam - Vital Signs Vital signs: Vital Signs Temp Pulse Resp BP Pulse Ox 98.6 F 68 18 112/58 100 10/01/17 12:23 10/01/17 12:23 10/01/17 12:23 10/01/17 12:23 10/01/17 12:23 - General Appearance General appearance: well-developed, appears stated age, other (not in distress) EENT: ATNC, PERRL, mucous membranes dry, hearing intact, vision intact Neck: Present: neck supple, trachea midline Respiratory: Clear to Ascultation Heart: regular, S1S2, no murmurs Gastrointestinal: Present: normoactive bowel sounds. Absent: tenderness Integumentary: ulcer (both heel covered with dressing) Neurologic: no focal deficit, no asterixis Musculoskeletal: Present: other (bilateral LE edema, R > L) Psychiatric: cooperative Results - Lab Results 10/01/17 13:03 10/01/17 13:03 Most recent lab results Calcium 8.6 mg/dL (8.4-10.2) 10/01/17 13:03 Magnesium 1.90 mg/dL (1.7-2.3) 10/01/17 13:03 Assessment and Plan 1. Acute kidney injury: Likely hemodynamic / Vasomotor FLACO superimposed on CKD stage 3. Agree with IV fluids. 2. Hyponatremia: Corrected Sodium level is around 128. IV fluids. 3. Hypokalemia: On K supplement. 4. CHF. 5. Heel uclers: Followed in wound clinic.
== END 2017-10-01 18:02 | disposition home or self-care (01) ==
LOC: ED 11:58
DX: E11.65 Type 2 diabetes mellitus with hyperglycemia (principal); I13.0 Hypertensive heart and chronic kidney disease with heart failure and stage 1 through stage 4 chronic kidney disease, or unspecified chronic kidney disease; E11.22 Type 2 diabetes mellitus with diabetic chronic kidney disease; N18.3 Chronic kidney disease, stage 3 (moderate); M19.90 Unspecified osteoarthritis, unspecified site; E78.00 Pure hypercholesterolemia, unspecified; Z86.73 Personal history of transient ischemic attack (TIA), and cerebral infarction without residual deficits; Z86.718 Personal history of other venous thrombosis and embolism; Z79.82 Long term (current) use of aspirin
CPT/HCPCS: 36415; 80048; 82550; 82805; 82962; 83735; 85027; 96372; 99284; J7040; J1815

== ENCOUNTER 2017-10-20 13:03 | Outpatient (CLI) | payer MEDICARE ==
[~2017-10-20 13:03] MED LIST: HEPARIN 10,000 UNITS/10 ML ONE; HEPARIN/NS 5000 UNIT/500ML(CATH LAB) 1,000 ML IR ONE; NACL 0.9% 500 ML 500 ML ONE; SUBLIMAZE ONE; VERSED ONE; XYLOCAINE 1%/ EPI 1:100,000 INFILTRATI ONE
[2017-10-20] MEDS ORDERED: XYLOCAINE TOPICAL 4% TP ONE ×2 (13:06→13:11)
== END 2017-10-20 13:04 | disposition home or self-care (01) ==
LOC: WOUND 13:03
PROVIDERS: ATTEND Surgery
DX: E11.621 Type 2 diabetes mellitus with foot ulcer (principal); L97.421 Non-pressure chronic ulcer of left heel and midfoot limited to breakdown of skin; L97.411 Non-pressure chronic ulcer of right heel and midfoot limited to breakdown of skin; I11.0 Hypertensive heart disease with heart failure; I50.9 Heart failure, unspecified; Z98.49 Cataract extraction status, unspecified eye
CPT/HCPCS: 11042; 11043; 11046; 97605; J1644; J2250; J3010; J7040

== ENCOUNTER 2017-10-27 12:58 | Outpatient (CLI) | payer MEDICARE | END 2017-10-27 12:59 | disposition home or self-care (01) | LOC: WOUND 12:58 | PROVIDERS: ATTEND Surgery | DX: E11.621 Type 2 diabetes mellitus with foot ulcer (principal); L97.421 Non-pressure chronic ulcer of left heel and midfoot limited to breakdown of skin; L97.411 Non-pressure chronic ulcer of right heel and midfoot limited to breakdown of skin; I11.0 Hypertensive heart disease with heart failure; I50.9 Heart failure, unspecified; Z98.49 Cataract extraction status, unspecified eye | CPT/HCPCS: 82962; G0277; 99183 ==

== ENCOUNTER 2017-10-28 10:25 | Outpatient (CLI) | payer MEDICARE | END 2017-10-28 10:26 | disposition home or self-care (01) | LOC: WOUND 10:25 | PROVIDERS: ATTEND Surgery | DX: E11.621 Type 2 diabetes mellitus with foot ulcer (principal); L97.421 Non-pressure chronic ulcer of left heel and midfoot limited to breakdown of skin; L97.411 Non-pressure chronic ulcer of right heel and midfoot limited to breakdown of skin; I11.0 Hypertensive heart disease with heart failure; I50.9 Heart failure, unspecified; Z98.49 Cataract extraction status, unspecified eye | CPT/HCPCS: 82962; G0277; 99183 ==

== ENCOUNTER 2017-10-29 12:58 | Outpatient (CLI) | payer MEDICARE ==
[2017-10-29] MEDS ORDERED: SODIUM CHLORIDE FLUSH SYRINGE 10 ML IV ONE ×2 (15:39→16:38)
== END 2017-10-29 12:59 | disposition home or self-care (01) ==
LOC: WOUND 12:58
PROVIDERS: ATTEND Surgery
DX: E11.621 Type 2 diabetes mellitus with foot ulcer (principal); L97.421 Non-pressure chronic ulcer of left heel and midfoot limited to breakdown of skin; L97.411 Non-pressure chronic ulcer of right heel and midfoot limited to breakdown of skin; I11.0 Hypertensive heart disease with heart failure; I50.9 Heart failure, unspecified; Z98.49 Cataract extraction status, unspecified eye
CPT/HCPCS: 99183; G0277

== ENCOUNTER 2017-10-30 13:06 | Outpatient (CLI) | payer MEDICARE ==
[~2017-10-30 13:06] MED LIST changes: -HEPARIN 10,000 UNITS/10 ML ONE; -HEPARIN/NS 5000 UNIT/500ML(CATH LAB) 1,000 ML IR ONE; -NACL 0.9% 500 ML 500 ML ONE; -SUBLIMAZE ONE; -VERSED ONE; -XYLOCAINE 1%/ EPI 1:100,000 INFILTRATI ONE; +XYLOCAINE TOPICAL 4% TP ONE
[2017-10-30] MEDS ORDERED: XYLOCAINE TOPICAL 4% TP ONE (13:39)
== END 2017-10-30 13:07 | disposition home or self-care (01) ==
LOC: WOUND 13:06
PROVIDERS: ATTEND Surgery
DX: E11.621 Type 2 diabetes mellitus with foot ulcer (principal); L97.421 Non-pressure chronic ulcer of left heel and midfoot limited to breakdown of skin; L97.411 Non-pressure chronic ulcer of right heel and midfoot limited to breakdown of skin; I11.0 Hypertensive heart disease with heart failure; I50.9 Heart failure, unspecified; Z98.49 Cataract extraction status, unspecified eye
CPT/HCPCS: 11042; 11045; 82962; 97605; G0277; 99183

== ENCOUNTER 2017-11-02 12:56 | Outpatient (CLI) | payer MEDICARE | END 2017-11-02 12:57 | disposition home or self-care (01) | LOC: WOUND 12:56 | PROVIDERS: ATTEND Surgery | DX: E11.621 Type 2 diabetes mellitus with foot ulcer (principal); L97.421 Non-pressure chronic ulcer of left heel and midfoot limited to breakdown of skin; L97.411 Non-pressure chronic ulcer of right heel and midfoot limited to breakdown of skin; I11.0 Hypertensive heart disease with heart failure; I50.9 Heart failure, unspecified | CPT/HCPCS: 82962 ==

== ENCOUNTER 2017-11-03 12:44 | Outpatient (CLI) | payer MEDICARE | END 2017-11-03 12:45 | disposition home or self-care (01) | LOC: WOUND 12:44 | PROVIDERS: ATTEND Surgery | DX: E11.621 Type 2 diabetes mellitus with foot ulcer (principal); L97.421 Non-pressure chronic ulcer of left heel and midfoot limited to breakdown of skin; L97.411 Non-pressure chronic ulcer of right heel and midfoot limited to breakdown of skin; I11.0 Hypertensive heart disease with heart failure; I50.9 Heart failure, unspecified; E11.69 Type 2 diabetes mellitus with other specified complication; M86.8X7 Other osteomyelitis, ankle and foot; Z98.49 Cataract extraction status, unspecified eye | CPT/HCPCS: 82962; G0277; 99183 ==

== ENCOUNTER 2017-11-04 13:02 | Outpatient (CLI) | payer MEDICARE | END 2017-11-04 13:03 | disposition home or self-care (01) | LOC: WOUND 13:02 | PROVIDERS: ATTEND Surgery | DX: E11.621 Type 2 diabetes mellitus with foot ulcer (principal); L97.421 Non-pressure chronic ulcer of left heel and midfoot limited to breakdown of skin; L97.411 Non-pressure chronic ulcer of right heel and midfoot limited to breakdown of skin; I11.0 Hypertensive heart disease with heart failure; I50.9 Heart failure, unspecified; E11.69 Type 2 diabetes mellitus with other specified complication; M86.8X7 Other osteomyelitis, ankle and foot; Z98.49 Cataract extraction status, unspecified eye | CPT/HCPCS: 82962; G0277; 99183 ==

== ENCOUNTER 2017-11-05 13:00 | Outpatient (CLI) | payer MEDICARE | END 2017-11-05 13:01 | disposition home or self-care (01) | LOC: WOUND 13:00 | PROVIDERS: ATTEND Obstetrics & Gynecology Gynecologic Oncology | DX: E11.621 Type 2 diabetes mellitus with foot ulcer (principal); L97.421 Non-pressure chronic ulcer of left heel and midfoot limited to breakdown of skin; L97.411 Non-pressure chronic ulcer of right heel and midfoot limited to breakdown of skin; I11.0 Hypertensive heart disease with heart failure; I50.9 Heart failure, unspecified; E11.69 Type 2 diabetes mellitus with other specified complication; M86.8X7 Other osteomyelitis, ankle and foot; Z98.49 Cataract extraction status, unspecified eye | CPT/HCPCS: 82962; G0277; 99183 ==

== ENCOUNTER 2017-11-11 11:22 | Outpatient (CLI) | payer MEDICARE | END 2017-11-11 11:23 | disposition home or self-care (01) | LOC: WOUND 11:22 | PROVIDERS: ATTEND Surgery | DX: E11.621 Type 2 diabetes mellitus with foot ulcer (principal); L97.421 Non-pressure chronic ulcer of left heel and midfoot limited to breakdown of skin; L97.411 Non-pressure chronic ulcer of right heel and midfoot limited to breakdown of skin; I11.0 Hypertensive heart disease with heart failure; I50.9 Heart failure, unspecified; E11.69 Type 2 diabetes mellitus with other specified complication; M86.8X7 Other osteomyelitis, ankle and foot; Z98.49 Cataract extraction status, unspecified eye | CPT/HCPCS: 82962; G0277; 99183 ==

== ENCOUNTER 2017-11-12 09:35 | Outpatient (CLI) | payer MEDICARE | END 2017-11-12 09:36 | disposition home or self-care (01) | LOC: WOUND 09:35 | PROVIDERS: ATTEND Surgery | DX: E11.621 Type 2 diabetes mellitus with foot ulcer (principal); L97.421 Non-pressure chronic ulcer of left heel and midfoot limited to breakdown of skin; L97.411 Non-pressure chronic ulcer of right heel and midfoot limited to breakdown of skin; I11.0 Hypertensive heart disease with heart failure; I50.9 Heart failure, unspecified; E11.69 Type 2 diabetes mellitus with other specified complication; M86.8X7 Other osteomyelitis, ankle and foot; Z98.49 Cataract extraction status, unspecified eye | CPT/HCPCS: 82962; G0277; 99183 ==

== ENCOUNTER 2017-11-13 09:35 | Outpatient (CLI) | payer MEDICARE ==
[2017-11-13] MEDS ORDERED: XYLOCAINE TOPICAL 4% TP ONE (12:55)
== END 2017-11-13 09:36 | disposition home or self-care (01) ==
LOC: WOUND 09:35
PROVIDERS: ATTEND Surgery
DX: E11.621 Type 2 diabetes mellitus with foot ulcer (principal); L97.421 Non-pressure chronic ulcer of left heel and midfoot limited to breakdown of skin; L97.411 Non-pressure chronic ulcer of right heel and midfoot limited to breakdown of skin; I11.0 Hypertensive heart disease with heart failure; I50.9 Heart failure, unspecified; E11.69 Type 2 diabetes mellitus with other specified complication; M86.8X7 Other osteomyelitis, ankle and foot; Z98.49 Cataract extraction status, unspecified eye
CPT/HCPCS: 11042; 11045; 82962; 97605; G0277; 99183

== ENCOUNTER 2017-11-16 09:36 | Outpatient (CLI) | payer MEDICARE | END 2017-11-16 09:37 | disposition home or self-care (01) | LOC: WOUND 09:36 | PROVIDERS: ATTEND Surgery | DX: E11.621 Type 2 diabetes mellitus with foot ulcer (principal); L97.421 Non-pressure chronic ulcer of left heel and midfoot limited to breakdown of skin; L97.411 Non-pressure chronic ulcer of right heel and midfoot limited to breakdown of skin; I11.0 Hypertensive heart disease with heart failure; I50.9 Heart failure, unspecified; E11.69 Type 2 diabetes mellitus with other specified complication; M86.8X7 Other osteomyelitis, ankle and foot; Z98.49 Cataract extraction status, unspecified eye | CPT/HCPCS: 82962; G0277; 99183 ==

== ENCOUNTER 2017-11-17 09:49 | Outpatient (CLI) | payer MEDICARE | END 2017-11-17 09:50 | disposition home or self-care (01) | LOC: WOUND 09:49 | PROVIDERS: ATTEND Surgery | DX: E11.621 Type 2 diabetes mellitus with foot ulcer (principal); L97.421 Non-pressure chronic ulcer of left heel and midfoot limited to breakdown of skin; L97.411 Non-pressure chronic ulcer of right heel and midfoot limited to breakdown of skin; I11.0 Hypertensive heart disease with heart failure; I50.9 Heart failure, unspecified; E11.69 Type 2 diabetes mellitus with other specified complication; M86.8X7 Other osteomyelitis, ankle and foot; Z98.49 Cataract extraction status, unspecified eye | CPT/HCPCS: 82962; G0277; 99183 ==

== ENCOUNTER 2017-11-20 09:53 | Outpatient (CLI) | payer MEDICARE ==
[2017-11-20] MEDS ORDERED: XYLOCAINE TOPICAL 4% TP ONE ×2 (13:04→13:05)
== END 2017-11-20 09:54 | disposition home or self-care (01) ==
LOC: WOUND 09:53
PROVIDERS: ATTEND Surgery
DX: E11.621 Type 2 diabetes mellitus with foot ulcer (principal); L97.421 Non-pressure chronic ulcer of left heel and midfoot limited to breakdown of skin; L97.411 Non-pressure chronic ulcer of right heel and midfoot limited to breakdown of skin; I11.0 Hypertensive heart disease with heart failure; I50.9 Heart failure, unspecified; E11.69 Type 2 diabetes mellitus with other specified complication; M86.8X7 Other osteomyelitis, ankle and foot; Z98.49 Cataract extraction status, unspecified eye
CPT/HCPCS: 11042; 11045; 82962; 97605; G0277; 99183

== ENCOUNTER 2017-11-26 09:38 | Outpatient (CLI) | payer MEDICARE | END 2017-11-26 09:39 | disposition home or self-care (01) | LOC: WOUND 09:38 | PROVIDERS: ATTEND Surgery | DX: E11.621 Type 2 diabetes mellitus with foot ulcer (principal); L97.421 Non-pressure chronic ulcer of left heel and midfoot limited to breakdown of skin; L97.411 Non-pressure chronic ulcer of right heel and midfoot limited to breakdown of skin; I11.0 Hypertensive heart disease with heart failure; I50.9 Heart failure, unspecified; E11.69 Type 2 diabetes mellitus with other specified complication; M86.8X7 Other osteomyelitis, ankle and foot; Z98.49 Cataract extraction status, unspecified eye | CPT/HCPCS: 82962; G0277; 99183 ==

== ENCOUNTER 2017-11-27 09:37 | Outpatient (CLI) | payer MEDICARE ==
[2017-11-27] MEDS ORDERED: AD OINTMENT TP ONE (12:25)
[2017-11-27] MEDS ORDERED: XYLOCAINE TOPICAL 4% TP ONE ×2 (12:25→12:36)
[2017-11-27] MEDS ORDERED: AD OINTMENT TP SCH (13:00)
== END 2017-11-27 09:38 | disposition home or self-care (01) ==
LOC: WOUND 09:37
PROVIDERS: ATTEND Surgery
DX: E11.621 Type 2 diabetes mellitus with foot ulcer (principal); L97.421 Non-pressure chronic ulcer of left heel and midfoot limited to breakdown of skin; L97.411 Non-pressure chronic ulcer of right heel and midfoot limited to breakdown of skin; I11.0 Hypertensive heart disease with heart failure; I50.9 Heart failure, unspecified; E11.69 Type 2 diabetes mellitus with other specified complication; M86.8X7 Other osteomyelitis, ankle and foot; Z98.49 Cataract extraction status, unspecified eye
CPT/HCPCS: 11042; 11045; 82962; 97605; G0277; 99183; A6250

== ENCOUNTER 2017-11-30 09:41 | Outpatient (CLI) | payer MEDICARE | END 2017-11-30 09:42 | disposition home or self-care (01) | LOC: WOUND 09:41 | PROVIDERS: ATTEND Surgery | DX: E11.621 Type 2 diabetes mellitus with foot ulcer (principal); L97.421 Non-pressure chronic ulcer of left heel and midfoot limited to breakdown of skin; L97.411 Non-pressure chronic ulcer of right heel and midfoot limited to breakdown of skin; I11.0 Hypertensive heart disease with heart failure; I50.9 Heart failure, unspecified; E11.69 Type 2 diabetes mellitus with other specified complication; M86.8X7 Other osteomyelitis, ankle and foot; Z98.49 Cataract extraction status, unspecified eye | CPT/HCPCS: 82962; G0277; 99183 ==

== ENCOUNTER 2017-12-01 09:34 | Outpatient (CLI) | payer MEDICARE | END 2017-12-01 09:35 | disposition home or self-care (01) | LOC: WOUND 09:34 | PROVIDERS: ATTEND Internal Medicine | DX: E11.621 Type 2 diabetes mellitus with foot ulcer (principal); L97.421 Non-pressure chronic ulcer of left heel and midfoot limited to breakdown of skin; L97.411 Non-pressure chronic ulcer of right heel and midfoot limited to breakdown of skin; I11.0 Hypertensive heart disease with heart failure; I50.9 Heart failure, unspecified; E11.69 Type 2 diabetes mellitus with other specified complication; M86.8X7 Other osteomyelitis, ankle and foot; Z98.49 Cataract extraction status, unspecified eye | CPT/HCPCS: 82962; G0277; 99183 ==

== ENCOUNTER 2017-12-02 09:15 | Outpatient (CLI) | payer MEDICARE | END 2017-12-02 09:16 | disposition home or self-care (01) | LOC: WOUND 09:15 | PROVIDERS: ATTEND Internal Medicine | DX: E11.621 Type 2 diabetes mellitus with foot ulcer (principal); L97.421 Non-pressure chronic ulcer of left heel and midfoot limited to breakdown of skin; L97.411 Non-pressure chronic ulcer of right heel and midfoot limited to breakdown of skin; I11.0 Hypertensive heart disease with heart failure; I50.9 Heart failure, unspecified; E11.69 Type 2 diabetes mellitus with other specified complication; M86.8X7 Other osteomyelitis, ankle and foot; Z98.49 Cataract extraction status, unspecified eye | CPT/HCPCS: 82962; G0277; 99183 ==